=== PATIENT | female | born 1960 | race Caucasian/White ===

== ENCOUNTER 2018-08-27 17:26 | Inpatient (IN) ==
--- NOTE | 2018-08-27 18:08 | ED ---
HPI General Chief Complaint: Respiratory Symptoms Stated Complaint: dr sent Time Seen by Provider: 08/27/18 17:48 Source: patient and RN notes reviewed Mode of arrival: ambulatory Limitations: no limitations History of Present Illness 58-year-old female presents to the emergency department sent by her primary care physician Dr. Carey for evaluation of coughing for 2 weeks. States she has been coughing up dark green yellow mucus. She reports shortness of breath and right-sided rib pain is currently 10/10. She reports a 10 pound weight loss. She states she is not sleeping. She states she did have some hemoptysis last Friday, none currently. No leg edema. Patient had a chest x- ray today at [facility] which showed a large right-sided effusion and atelectasis in the right base with right upper lobe atelectasis as well, malignancy is not excluded, CT scan is recommended if clinically indicated. Patient reports history of brain aneurysm and a stroke 10-12 years ago and hypertension. She is not currently on anticoagulants. She denies any medical history. She does report history pneumonia over 20 years ago. Oxygen saturation is 90% on room air. Moderate severity. MD Complaint: Reports shortness of breath Onset (ago): week(s) (2) Severity: moderate Consistency/Duration: constant Relieving factors: nothing Exacerbating factors: nothing Known history of: Denies COPD, asthma, congestive heart failure, diabetes, recurrent pneumonia, aspiration pneumonia, HIV, PE, DVT and IVDU Associated symptoms: Reports chest pain, cough and hemoptysis; Denies palpitations, nausea/vomiting, syncope, abdominal pain, sense of impending doom , dizziness and lightheadedness Treatment prior to arrival: Reports other (chest x-ray) Related Data Home oxygen amount: none Home Medications Medication Instructions Recorded Confirmed amlodipine 10 mg PO HS 08/27/18 08/27/18 azithromycin 250 mg PO DAILY 08/27/18 08/27/18 benzonatate 100 mg PO TID 08/27/18 08/27/18 buspirone 10 mg PO TID 08/27/18 08/27/18 cefdinir 300 mg PO Q12H 08/27/18 08/27/18 clonidine HCl 0.1 mg PO HS 08/27/18 08/27/18 fenofibrate 160 mg PO DAILY 08/27/18 08/27/18 levothyroxine 200 mcg PO DAILY 08/27/18 08/27/18 liothyronine 5 mcg PO DAILY 08/27/18 08/27/18 methylprednisolone 4 mg PO PER PKG DIR 08/27/18 08/27/18 montelukast 10 mg PO QPM 08/27/18 08/27/18 promethazine-DM 5 ml PO Q4H PRN 08/27/18 08/27/18 rosuvastatin 40 mg PO HS 08/27/18 08/27/18 trazodone 100 mg PO HS 08/27/18 08/27/18 Allergies Allergy/AdvReac Type Severity Reaction Status Date / Time No Known Allergies Allergy Uncoded 10/23/12 14:51 Review of Systems ROS: all other systems reviewed are negative [facility] Medical History Medical History Brain aneurysm (Acute) Hypertension (Acute) Stroke (Acute) Social History Social History Second Hand Smoke Exposure: Yes Smoking Status: Former smoker Tobacco Type: Cigarettes How Often Do You Have a Drink Containing Alcohol: Monthly or less Recent Travel in [facility] within the Last 8 Weeks: No Recent Out of Country Travel within the Last 8 Weeks: No Substance Abuse Detail Marijuana: Substance Use Status: Active Route Used Substance Abuse: Inhalation Reason for Use: Calm Down Immunization History Tetanus Immunization: Unsure Exam Narrative Exam Narrative: GENERAL: Well-nourished, well-developed female patient, afebrile SKIN: Focused skin assessment warm/dry. HEAD: Normocephalic. Atraumatic EYES: No scleral icterus. No injection or drainage. NECK: Supple, trachea midline. No JVD or lymphadenopathy. CARDIOVASCULAR: Regular rate and rhythm without murmurs, gallops, or rubs. Bilateral radial and pedal pulses are 2+ RESPIRATORY: Breath sounds equal bilaterally. No accessory muscle use. Lung sounds diminished on the right side GASTROINTESTINAL: Abdomen soft, non-tender, nondistended. MUSCULOSKELETAL: No cyanosis, or edema. BACK: Nontender without obvious deformity. No CVA tenderness. Course Initial Documented Vital Signs Temperature 98.6 F 08/27/18 17:32 Pulse Rate 92 H 08/27/18 17:32 Respiratory Rate 26 H 08/27/18 17:32 Blood Pressure 150/81 H 08/27/18 17:32 Pulse Oximetry 92 L 08/27/18 17:32 Last Documented Vital Signs Temperature 98.6 F 08/27/18 17:32 Pulse Rate 98 H 08/27/18 19:49 Respiratory Rate 22 08/27/18 19:49 Blood Pressure 122/73 08/27/18 19:49 Pulse Oximetry 93 L 08/27/18 19:49 Medical Decision Making BRENT Attestation BRENT supervised visit: Yes Attestation: I, Dr. Orourke, have reviewed the advance practice practitioner' s documentation and am in agreement, met with the patient face to face, made the diagnosis, and the medical decision making was done by me. *My assessment and Findings: The patient is a 58-year-old female who presents to the emergency department for shortness of breath and right-sided chest pain. The patient saw her physician golf course assistant at [facility] last week for shortness of breath with cough. The patient states she has shortness of breath that is worse with exertion, has difficulty sleeping for the last 2 weeks secondary to shortness of breath and right-sided chest pain. The patient was placed on Zithromax and a cough medicine at that time, however, her symptoms continue to progress. The patient then had an outpatient chest x-ray performed earlier today at [facility] which revealed a right pleural effusion. The patient has had fevers, chills, and sweats at home. The patient also notes a productive cough producing yellow to green sputum with occasional blood. The patient does have a history of tobacco use, quit in the fall 2017, however, occasionally "cheats ". The patient denies any history of pulmonary embolism, DVT, congestive heart failure, or COPD. The patient was noted to be tachycardic and hypoxic, therefore, lactic acid and blood cultures were sent to lab. Chest x-ray was revealed, the patient has a large pleural effusion on the right side, physical examination reveals tachycardia with diminished breath sounds in the right side with rhonchi and crackles. CTA pulmonary angiogram was ordered. The patient was covered with cefepime and Zithromax, the patient will be admitted. MDM Narrative Medical decision making narrative: 58-year-old female presents to the emergency department sent by her primary care physician for right-sided pleural effusion. She has no history of respiratory issues. IV access obtained. EKG, CBC, CMP , magnesium, BNP, CK, troponin, lactic acid, PTT, PT/INR, blood cultures x2, CTA of the chest are ordered and pending. EKG shows SR, HR 98, no acute ST changes. CBC shows leukocytosis 31.2, left shift 92.4, toxic vacuolation. CMP shows hyperglycemia 153. Magnesium is 2.2. BNP is pending. CK is 64. Troponin is less than 0.02. Lactic acid is 1.3. PTT is 38.4. PT/INR is 11.4/1.1. CTA of the chest shows No definitive CT evidence for pulmonary artery embolism although evaluation of the right pulmonary artery branches is limited, as above; Moderate to large loculated right-sided pleural effusion demonstrating indeterminate density. Differential considerations include empyema in the appropriate clinical setting; Airspace consolidation in the right lung with associated volume loss likely reflects compressive atelectasis. Differential considerations include right lower lobe pneumonia and aspiration; Mild nonspecific mediastinal and right hilar adenopathy, likely reactive/infectious in etiology. Patient is given cefepime, azithromycin. Patient will be admitted for pneumonia , right pleural effusion, sepsis. I spoke with Dr. Almaguer who would like Vancomycin to be added on, order placed Medical Screen Exam Complete: Yes Emergency Medical Condition: Yes Differential Diagnosis Differential Diagnosis: pleural effusion vs. PE vs. malignancy vs. pneumonia vs. sepsis vs. ACS Medical Records Medical records reviewed: Yes I reviewed the patient's medical records. Lab Data Result diagrams: 08/27/18 18:10 08/27/18 18:10 Lab Results 08/27/18 08/27/18 08/27/18 Range/Units 18:10 18:10 18:10 WBC 31.2 H (4.0-11.0) th/mm3 RBC 4.40 (4.00-5.30) mil/mm3 Hgb 13.5 (11.6-15.3) gm/dL Hct 39.7 (35.0-46.0) % MCV 90.1 (80.0-100.0) fL MCH 30.6 (27.0-34.0) pg MCHC 34.0 (32.0-36.0) % RDW 14.0 (11.6-17.2) % Plt Count 658 H (150-450) th/mm3 MPV 7.6 (7.0-11.0) fL Prelim Diff (Auto) Slide review pending Neut % (Auto) 92.4 H (16.0-70.0) % Lymph % (Auto) 3.2 L (9.0-44.0) % Lake % (Auto) 4.0 (0.0-8.0) % Eos % (Auto) 0.1 (0.0-4.0) % Baso % (Auto) 0.3 (0.0-2.0) % Neut # (Auto) 28.8 H (1.8-7.7) th/mm3 Lymph # (Auto) 1.0 (1.0-4.8) th/mm3 Lake # (Auto) 1.2 H (0.0-0.9) th/mm3 Eos # (Auto) 0.0 (0.0-0.4) th/mm3 Baso # (Auto) 0.1 (0.0-0.2) th/mm3 WBC Differential Manual diff final Seg Neuts % (Manual) 87 H (16-70) % Band Neuts % (Manual) 5 (0-6) % Lymphocytes % (Manual) 6 L (9-44) % Monocytes % (Manual) 1 (0-8) % Metamyelocytes % (Man) 1 (0-1) % Abs Neuts (Manual) 29.0 H (1.8-7.7) th/mm3 Differential Comment . Toxic Vacuolation Present H (None) Platelet Estimate High H (Normal) Platelet Morphology Normal (Normal) Keratocytes Occ H (None) PT 11.4 (9.8-11.6) sec INR 1.1 Ratio APTT 38.4 H (23.4-31.7) sec Sodium 136 (136-145) meq/L Potassium 3.6 (3.5-5.1) meq/L Chloride 102 (98-107) meq/L Carbon Dioxide 26.8 (21.0-32.0) meq/L Anion Gap 7 (5-15) meq/L BUN 9 (7-18) mg/dL Creatinine 0.70 (0.50-1.00) mg/dL Estimated GFR 86 L (>89) mL/min Random Glucose 153 H (74-106) mg/dL Lactic Acid (0.4-2.0) mmol/L Calcium 9.1 (8.5-10.1) mg/dL Magnesium 2.2 (1.5-2.5) mg/dL Total Bilirubin 0.5 (0.2-1.0) mg/dL AST 7 L (15-37) U/L ALT 16 (10-53) U/L Alkaline Phosphatase 64 (45-117) U/L Total Creatine Kinase 64 (26-192) U/L Troponin I Less than 0.02 L (0.02-0.05) ng/mL Total Protein 7.6 (6.4-8.2) g/dL Albumin 2.7 L (3.4-5.0) g/dL 08/27/18 Range/Units 18:10 WBC (4.0-11.0) th/mm3 RBC (4.00-5.30) mil/mm3 Hgb (11.6-15.3) gm/dL Hct (35.0-46.0) % MCV (80.0-100.0) fL MCH (27.0-34.0) pg MCHC (32.0-36.0) % RDW (11.6-17.2) % Plt Count (150-450) th/mm3 MPV (7.0-11.0) fL Prelim Diff (Auto) Neut % (Auto) (16.0-70.0) % Lymph % (Auto) (9.0-44.0) % Lake % (Auto) (0.0-8.0) % Eos % (Auto) (0.0-4.0) % Baso % (Auto) (0.0-2.0) % Neut # (Auto) (1.8-7.7) th/mm3 Lymph # (Auto) (1.0-4.8) th/mm3 Lake # (Auto) (0.0-0.9) th/mm3 Eos # (Auto) (0.0-0.4) th/mm3 Baso # (Auto) (0.0-0.2) th/mm3 WBC Differential Seg Neuts % (Manual) (16-70) % Band Neuts % (Manual) (0-6) % Lymphocytes % (Manual) (9-44) % Monocytes % (Manual) (0-8) % Metamyelocytes % (Man) (0-1) % Abs Neuts (Manual) (1.8-7.7) th/mm3 Differential Comment Toxic Vacuolation (None) Platelet Estimate (Normal) Platelet Morphology (Normal) Keratocytes (None) PT (9.8-11.6) sec INR Ratio APTT (23.4-31.7) sec Sodium (136-145) meq/L Potassium (3.5-5.1) meq/L Chloride (98-107) meq/L Carbon Dioxide (21.0-32.0) meq/L Anion Gap (5-15) meq/L BUN (7-18) mg/dL Creatinine (0.50-1.00) mg/dL Estimated GFR (>89) mL/min Random Glucose (74-106) mg/dL Lactic Acid 1.3 (0.4-2.0) mmol/L Calcium (8.5-10.1) mg/dL Magnesium (1.5-2.5) mg/dL Total Bilirubin (0.2-1.0) mg/dL AST (15-37) U/L ALT (10-53) U/L Alkaline Phosphatase (45-117) U/L Total Creatine Kinase (26-192) U/L Troponin I (0.02-0.05) ng/mL Total Protein (6.4-8.2) g/dL Albumin (3.4-5.0) g/dL Imaging Data Radiologist's impression: Chest CTA 08/27/18 18:02 CONCLUSION: 1. No definitive CT evidence for pulmonary artery embolism although evaluation of the right pulmonary artery branches is limited, as above. 2. Moderate to large loculated right-sided pleural effusion demonstrating indeterminate density. Differential considerations include empyema in the appropriate clinical setting. 3. Airspace consolidation in the right lung with associated volume loss likely reflects compressive atelectasis. Differential considerations include right lower lobe pneumonia and aspiration. 4. Mild nonspecific mediastinal and right hilar adenopathy, likely reactive/ infectious in etiology. Discharge Plan Discharge Disposition Patient Disposition: ED Admit(ED Internal Use Only) Discharge Details Diagnosis: Pleural effusion on right, Pneumonia, Sepsis Physicians Team ED Provider: Misbah Orourke ED Midlevel Provider: Lauren Lopez Primary Care Provider: UNKNOWN, Rxs /Orders / Referrals /Forms Prescriptions: No Action clonidine HCl 0.1 mg Tablet 0.1 mg PO HS RF: 0 azithromycin 250 mg Tablet 250 mg PO DAILY RF: 0 liothyronine 5 mcg Tablet 5 mcg PO DAILY RF: 0 trazodone 100 mg Tablet 100 mg PO HS RF: 0 amlodipine 10 mg Tablet 10 mg PO HS RF: 0 buspirone 10 mg Tablet 10 mg PO TID RF: 0 montelukast 10 mg Tablet 10 mg PO QPM RF: 0 rosuvastatin 40 mg Tablet 40 mg PO HS RF: 0 fenofibrate 160 mg Tablet 160 mg PO DAILY RF: 0 levothyroxine 200 mcg Capsule 200 mcg PO DAILY RF: 0 promethazine-DM 6.25-15 mg/5 mL Syrup 5 ml PO Q4H PRN (Reason: Cough) RF: 0 benzonatate 100 mg Capsule 100 mg PO TID RF: 0 methylprednisolone 4 mg Tablets,Dose Pack 4 mg PO PER PKG DIR RF: 0 cefdinir 300 mg Capsule 300 mg PO Q12H RF: 0 Status ED Status: Pending Admission
[2018-08-27 18:34] LABS: Baso # (Auto) 0.1 th/mm3 (0.0-0.2); Baso % (Auto) 0.3 % (0.0-2.0); Eos % (Auto) 0.1 % (0.0-4.0); Hematocrit 39.7 % (35.0-46.0); Hemoglobin 13.5 gm/dL (11.6-15.3); Lymph % (Auto) 3.2 % (9.0-44.0); Mean Corpuscular Hemoglobin 30.6 pg (27.0-34.0); Mean Corpuscular Volume 90.1 fL (80.0-100.0); Mean Platelet Volume 7.6 fL (7.0-11.0); Mono # (Auto) 1.2 th/mm3 (0.0-0.9); Neut # (Auto) 28.8 th/mm3 (1.8-7.7); Neut % (Auto) 92.4 % (16.0-70.0); Platelet Count 658 th/mm3 (150-450); White Blood Count 31.2 th/mm3 (4.0-11.0)
[2018-08-27 18:44] LABS: Activated Partial Thrombo Time 38.4 sec (23.4-31.7); INR 1.1 Ratio; Prothrombin Time 11.4 sec (9.8-11.6)
[2018-08-27 18:51] LABS: Albumin 2.7 g/dL (3.4-5.0); Anion Gap 7 meq/L (5-15); Aspartate Aminotransferase 7 U/L (15-37); Blood Urea Nitrogen 9 mg/dL (7-18); Calcium 9.1 mg/dL (8.5-10.1); Carbon Dioxide 26.8 meq/L (21.0-32.0); Chloride 102 meq/L (98-107); Glomerular Filtration Rate 86 mL/min (>89); Glucose,Random 153 mg/dL (74-106); Magnesium 2.2 mg/dL (1.5-2.5); Potassium 3.6 meq/L (3.5-5.1); Sodium 136 meq/L (136-145)
[2018-08-27] MEDS ORDERED: Azithromycin Inj 500 MG in Sodium Chlor 0.9% Inj 250 ML IV.SIG ONE (18:56)
[2018-08-27 18:57] LABS: Alanine Aminotransferase 16 U/L (10-53); Alkaline Phosphatase 64 U/L (45-117); Total Protein 7.6 g/dL (6.4-8.2)
[2018-08-27 19:00] LABS: Creatine Kinase 64 U/L (26-192)
[2018-08-27 19:24] LABS: Lymphocytes 6 % (9-44); Metamyelocytes 1 % (0-1); Monocytes 1 % (0-8)
[2018-08-27 19:25] LABS: Platelet Morphology Normal (Normal); Toxic Vacuolation Present
--- NOTE | 2018-08-27 19:37 | CT ---
EXAM DATE: 08/27/2018 7:30 PM EST AGE/SEX: 58 years / Female INDICATIONS: Shortness of breath. CLINICAL DATA: This is the patient's initial encounter. Patient reports that signs and symptoms have been present for 1 day and indicates a pain score of 0/10. MEDICAL/SURGICAL HISTORY: Hypertension. Stroke. None. RADIATION DOSE: 10.63 CTDI (mGy) COMPARISON: [facility], XR CHEST PA AND LAT, 08/27/2018. . TECHNIQUE: Volumetric scanning was performed using a multi-row detector CT scanner during bolus infu gt of 70 ml Omnipaque 350 (iohexol) nonionic water-soluble contrast as a single exam dose. The julienne a was post processed with a variety of visualization algorithms including full volume maximum intensi ty projection and sliding thin slab reformation. Using automated exposure control and adjustment of the mA and/or kV according to patient size, radiation dose was kept as low as reasonably achievable t o obtain optimal diagnostic quality images. DICOM format image data is available electronically for review and comparison. FINDINGS: Pulmonary Arteries: No filling defects are seen in the pulmonary arteries through the segmental vess els. However, evaluation of the right pulmonary artery branches is limited due to significant volume loss and consolidation. The main pulmonary artery is normal in diameter. Lung: Airspace consolidation adjacent moderate to large right-sided loculated pleural effusion. Pleura: Moderate to large loculated right-sided pleural effusion demonstrating indeterminate density . Mediastinum: Heart is unremarkable without significant pericardial effusion. Multiple subcentimeter mediastinal and right hilar lymph nodes which do not meet strict CT size criteria. Osseous Structures: No abnormal focal lytic or blastic bony lesions. Other: Visulaized upper abdomen is unremarkable. CONCLUSION: 1. No definitive CT evidence for pulmonary artery embolism although evaluation of the right pulmonar y artery branches is limited, as above. 2. Moderate to large loculated right-sided pleural effusion demonstrating indeterminate density. Dif ferential considerations include empyema in the appropriate clinical setting. 3. Airspace consolidation in the right lung with associated volume loss likely reflects compressive atelectasis. Differential considerations include right lower lobe pneumonia and aspiration. 4. Mild nonspecific mediastinal and right hilar adenopathy, likely reactive/infectious in etiology. Electronically signed by: Daniel Norwood MD Board Certified Radiologist 08/27/2018 7:36 PM EST
[2018-08-27] MEDS ORDERED: Vancomycin Inj 1,000 MG in Sodium Chlor 0.9% Inj 250 ML IV.SIG ONE (20:33)
[2018-08-27] MEDS ORDERED: Vancomycin Consult Pharmacy OTHER PRN ×2 (21:26→21:49)
[2018-08-27] MEDS ORDERED: Acetaminophen 325 MG Tablet PO PRN (21:31)
[2018-08-27] MEDS ORDERED: Bisacodyl 10 MG Supp RECTAL PRN (21:31)
[2018-08-27] MEDS ORDERED: DEXTROMETHORPHAN PO PRN (21:34)
[2018-08-27] MEDS ORDERED: PROMETHAZINE PO PRN (21:34)
--- NOTE | 2018-08-27 21:42 | P.HPIM ---
History of Present Illness Primary Care Physician: UNKNOWN 58-year-old female with a past medical history significant for hypertension, hyperlipidemia and history of previous CVA presents to the emergency department for evaluation of fever/chills and productive cough for the past 2 weeks. The patient reports she has had a cough productive of green sputum that is occasionally blood-tinged. She endorses increasingly worsening shortness of breath. She complains of right sided rib pain that is worse with coughing. She has had subjective fever/chills although did not take her temperature at home. She who was seen by her primary care provider and prescribed antibiotics and steroids without improvement. She denies any substernal chest pain. No abdominal pain. No nausea/vomiting/diarrhea. No focal neurologic deficits. Inpatient Certification Inpatient Certification: I certify that the inpatient services were ordered in accordance with Medicare regulations governing the order. This includes certification that hospital inpatient services are reasonable and necessary and in the case of services not specified as inpatient-only under 42 CFR 419.22(n), that they are appropriately provided as inpatient services in accordance to with the 2-midnight benchmark under 43 CFR 412.3(e) Estimated Total Length of Stay (Days): 3 Plans for Post Hospital Care: Not yet determined Review of Systems Review of Systems: all other systems reviewed are negative [facility] Medical History Medical History Hyperlipidemia (Acute) Brain aneurysm (Acute) Hypertension (Acute) Stroke (Acute) Surgical History Surgical History History of appendectomy (Acute) Family History Family History Other Diabetes mellitus Social History Social History Second Hand Smoke Exposure: Yes Smoking Status: Former smoker Tobacco Type: Cigarettes How Often Do You Have a Drink Containing Alcohol: Monthly or less Recent Travel in [place] within the Last 8 Weeks: No Recent Out of Country Travel within the Last 8 Weeks: No Substance Abuse Detail Marijuana: Substance Use Status: Active Route Used Substance Abuse: Inhalation Reason for Use: Calm Down Immunization History Tetanus Immunization: Unsure Medications and Allergies Allergies Allergy/AdvReac Type Severity Reaction Status Date / Time No Known Allergies Allergy Uncoded 10/23/12 14:51 Home Medications Medication Instructions Recorded Confirmed Type amlodipine 10 mg PO HS 08/27/18 08/27/18 History azithromycin 250 mg PO DAILY 08/27/18 08/27/18 History benzonatate 100 mg PO TID 08/27/18 08/27/18 History buspirone 10 mg PO TID 08/27/18 08/27/18 History cefdinir 300 mg PO Q12H 08/27/18 08/27/18 History clonidine HCl 0.1 mg PO HS 08/27/18 08/27/18 History fenofibrate 160 mg PO DAILY 08/27/18 08/27/18 History levothyroxine 200 mcg PO DAILY 08/27/18 08/27/18 History liothyronine 5 mcg PO DAILY 08/27/18 08/27/18 History methylprednisolone 4 mg PO PER PKG DIR 08/27/18 08/27/18 History montelukast 10 mg PO QPM 08/27/18 08/27/18 History promethazine-DM 5 ml PO Q4H PRN 08/27/18 08/27/18 History rosuvastatin 40 mg PO HS 08/27/18 08/27/18 History trazodone 100 mg PO HS 08/27/18 08/27/18 History Active Medications: Active Medications Acetaminophen (Tylenol) 650 mg PO Q4H PRN PRN Reason: Temp > 100.4 Al Hydroxide/Mg Hydroxide (Milk Of Magnesia Liq) 30 ml PO Q12H PRN PRN Reason: Mild Constipation Albuterol (Duoneb Neb (Prn)) 1 ampul NEB Q4HR NEB PRN PRN Reason: SOB/Wheezing Amlodipine Besylate (Norvasc) 10 mg PO HS [facility] Bisacodyl (Dulcolax Supp) 10 mg RECTAL DAILY PRN PRN Reason: SEVERE CONSITIPATION Clonidine HCl (Clonidine (Nicu) 20 Mcg/Ml Liq) 100 mcg PO HS [facility] Azithromycin 500 mg/ Sodium (Chloride) 250 mls @ 250 mls/hr IV.SIG ONCE ONE Stop: 08/28/18 22:25 Cefepime HCl 2,000 mg/ Sodium (Chloride) 100 mls @ 200 mls/hr IV.SIG Q8H [facility] Sodium Chloride (Ns Inj) 1,000 mls @ 100 mls/hr IV.CONT .Q10H [facility] Lactulose (Lactulose Liq) 30 ml PO DAILY PRN PRN Reason: SEVERE CONSITIPATION Morphine Sulfate (Morphine Inj) 4 mg IV.PUSH Q4H PRN PRN Reason: PAIN SCALE 6 TO 10 Non-Formulary Medication (Rosuvastatin [Rosuvastatin]) 40 mg PO HS [facility] Ondansetron HCl (Zofran Inj) 4 mg IV.PUSH Q6H PRN PRN Reason: NAUSEA OR VOMITING Pharmacy Profile Note (Vancomycin Consult Pharmacy) 1 each OTHER UNSCH PRN PRN Reason: Pharmacy to dose Promethazine HCl/Dextromethorphan (Phenergan Dm Liq) 5 ml PO Q4H PRN PRN Reason: Cough Senna/Docusate Sodium (Nirali-Colace) 1 tab PO BID [facility] Sennosides (Senokot) 17.2 mg PO Q12H PRN PRN Reason: Moderate Constipation Sodium Chloride (Ns Flush) 2 ml IV.FLUSH BID [facility] Sodium Chloride (Ns Flush) 2 ml IV.FLUSH PRN PRN PRN Reason: FLUSH AFTER USING IV ACCESS Trazodone HCl (Desyrel) 100 mg PO HS [facility] Physical Exam Vital signs: Vital Signs 08/27/18 17:32 08/27/18 17:48 08/27/18 18:21 Temperature 98.6 F Pulse Rate 92 H 104 H Respiratory Rate 26 H 17 Blood Pressure 150/81 H 143/85 H Pulse Oximetry 92 L 90 L 93 L 08/27/18 19:49 08/27/18 21:07 Temperature Pulse Rate 98 H 90 Respiratory Rate 22 20 Blood Pressure 122/73 120/60 Pulse Oximetry 93 L 95 Intake & Output 08/27/18 08/27/18 08/28/18 06:59 18:59 06:59 Intake Total 100 / 100 Balance 100 / 100 Weight 89.811 kg Intake: IV 100 / 100 Maxipime Inj 2,000 MG In NS Inj 100 / 100 100 ML @ 200 mls/hr IV.SIG ONCE ONE Rx#:[id number] Narrative: Gen.: No acute distress Head: Normocephalic. Atraumatic. EENT: Pupils equal round and reactive to light. Nose without drainage. Airway intact. Throat without injection. Cardiovascular: Regular rate and rhythm. No murmurs, rubs or gallops. Respiratory: Absent breath sounds on the right Abdomen: Soft, nontender, nondistended. No peritoneal signs. Musculoskeletal: No gross deformities. No edema. Skin: No obvious rashes or erythema. Neuro: Sensory and motor grossly intact. Cranial nerves II through XII grossly intact. Results Labs CBC & Chem 7: 08/27/18 18:10 08/27/18 18:10 Imaging Impressions Chest CTA 08/27/18 18:02 CONCLUSION: 1. No definitive CT evidence for pulmonary artery embolism although evaluation of the right pulmonary artery branches is limited, as above. 2. Moderate to large loculated right-sided pleural effusion demonstrating indeterminate density. Differential considerations include empyema in the appropriate clinical setting. 3. Airspace consolidation in the right lung with associated volume loss likely reflects compressive atelectasis. Differential considerations include right lower lobe pneumonia and aspiration. 4. Mild nonspecific mediastinal and right hilar adenopathy, likely reactive/ infectious in etiology. Caprini VTE Risk Assessment Caprini VTE Risk Assessment: No/Low Risk (score <= 1) Caprini Risk Assessment Model: Point Value = 1 Point Value = 2 Point Value = 3 Point Value = 5 Age 41-60 Minor surgery BMI > 25 kg/m2 Swollen legs Varicose veins or History of unexplained or recurrent spontaneous Oral contraceptives or hormone replacement Sepsis (< 1 month) Serious lung disease, including pneumonia (< 1 month) Abnormal pulmonary function Acute myocardial infarction Congestive heart failure (< 1 month) History of inflammatory bowel disease Medical patient at bed rest Age 61-74 Arthroscopic surgery Major open surgery (> 45 min) Laparoscopic surgery (> 45 min) Malignancy Confined to bed (> 72 hours) Immobilizing plaster cast Central venous access Age >= 75 History of VTE Family history of VTE Factor V Leiden Prothrombin [id number] Lupus anticoagulant Anticardiolipin antibodies Elevated serum homocysteine Heparin-induced thrombocytopenia Other congenital or acquired thrombophilia Stroke (< 1 month) Elective arthroplasty Hip, pelvis, or leg fracture Acute spinal cord injury (< 1 month) Prophylaxis Regimen: Total Risk Factor Score Risk Level Prophylaxis Regimen 0-1 Low Early ambulation 2 Moderate Order ONE of the following: *Sequential Compression Device (SCD) *Heparin 5000 units SQ BID 3-4 Higher Order ONE of the following medications: *Heparin 5000 units SQ TID *Enoxaparin/Lovenox 40 mg SQ daily (WT < 150 kg, CrCl > 30 mL/min) *Enoxaparin/Lovenox 30 mg SQ daily (WT < 150 kg, CrCl > 10-29 mL/min) *Enoxaparin/Lovenox 30 mg SQ BID (WT < 150 kg, CrCl > 30 mL/min) AND/OR *Sequential Compression Device (SCD) 5 or more Highest Order ONE of the following medications: *Heparin 5000 units SQ TID (Preferred with Epidurals) *Enoxaparin/Lovenox 40 mg SQ daily (WT < 150 kg, CrCl > 30 mL/min) *Enoxaparin/Lovenox 30 mg SQ daily (WT < 150 kg, CrCl > 10-29 mL/min) *Enoxaparin/Lovenox 30 mg SQ BID (WT < 150 kg, CrCl > 30 mL/min) AND *Sequential Compression Device (SCD) Assessment and Plan Plan Assessment/plan: 1. Pneumonia/empyema/sepsis Patient tachycardic, hypoxic with leukocytosis Chest CT significant for moderate to large loculated pleural effusion on the right Blood, sputum cultures pending Vancomycin, cefepime and azithromycin CT surgery consulted to assist with further evaluation and chest tube placement 2. Hypertension/hyperlipidemia Continue home medications FEN N.p.o. Electrolytes: Monitor and replete as needed NS at 100 cc/hour
[2018-08-27] MEDS: Sod Chloride 0.9% Inj 1,000 ML IV.CONT SCH (22:59)
[2018-08-27] MEDS: Morphine Inj 4 MG/ML Vial IV.PUSH PRN (23:20)
[2018-08-28] MEDS ORDERED: Vancomycin Inj 1,000 MG in Sodium Chlor 0.9% Inj 250 ML IV.SIG ONE ×2
[2018-08-28] MEDS: Morphine Inj 4 MG/ML Vial IV.PUSH PRN ×4 (03:09→22:08)
[2018-08-28 06:47] LABS: Baso # (Auto) 0.2 th/mm3 (0.0-0.2); Baso % (Auto) 0.6 % (0.0-2.0); Hematocrit 34.8 % (35.0-46.0); Hemoglobin 11.9 gm/dL (11.6-15.3); Lymph # (Auto) 1.1 th/mm3 (1.0-4.8); Lymph % (Auto) 3.7 % (9.0-44.0); Mean Corpuscular HGB Conc 34.3 % (32.0-36.0); Mean Corpuscular Hemoglobin 30.8 pg (27.0-34.0); Mean Corpuscular Volume 90.1 fL (80.0-100.0); Mean Platelet Volume 7.6 fL (7.0-11.0); Mono # (Auto) 1.2 th/mm3 (0.0-0.9); Neut # (Auto) 26.5 th/mm3 (1.8-7.7); Neut % (Auto) 91.7 % (16.0-70.0); Platelet Count 653 th/mm3 (150-450); Red Blood Count 3.86 mil/mm3 (4.00-5.30)
[2018-08-28 07:09] LABS: Anion Gap 8 meq/L (5-15); Blood Urea Nitrogen 10 mg/dL (7-18); Carbon Dioxide 25.9 meq/L (21.0-32.0); Chloride 106 meq/L (98-107); Glomerular Filtration Rate Greater Than 89 mL/min (>89); Glucose,Random 158 mg/dL (74-106); Potassium 3.8 meq/L (3.5-5.1); Sodium 140 meq/L (136-145)
[2018-08-28] MEDS: Sod Chloride 0.9% Inj 1,000 ML IV.CONT SCH ×2 (08:53→19:43)
[2018-08-28] MEDS: Senna/Docusate Sodium 8.6/50 MG Tablet PO SCH ×2 (09:11→22:09)
--- NOTE | 2018-08-28 11:53 | P.PNIM ---
Subjective Interval history: Nursing reports no deterioration since last night. Patient reports having substantial back pain. Denies ever being hospitalized for anything like this in the past. Denies drinking alcohol or pain killers except for taking some narcotics with this new acute pain. Physical Exam Vital signs: Vital Signs 08/27/18 17:32 08/27/18 17:48 08/27/18 18:21 Temperature 98.6 F Pulse Rate 92 H 104 H Respiratory Rate 26 H 17 Blood Pressure 150/81 H 143/85 H Pulse Oximetry 92 L 90 L 93 L 08/27/18 19:49 08/27/18 20:00 08/27/18 21:07 Temperature Pulse Rate 98 H 90 Respiratory Rate 22 20 Blood Pressure 122/73 120/60 Pulse Oximetry 93 L 94 L 95 08/27/18 21:47 08/27/18 21:54 08/27/18 23:00 Temperature Pulse Rate 88 104 H Respiratory Rate 20 Blood Pressure 108/58 L Pulse Oximetry 93 L 93 L 08/28/18 00:00 08/28/18 00:55 08/28/18 01:00 Temperature 99.4 F Pulse Rate 74 97 H Respiratory Rate 20 18 Blood Pressure 137/76 Pulse Oximetry 94 L 08/28/18 02:00 08/28/18 03:00 08/28/18 04:00 Temperature 98.1 F Pulse Rate 75 77 84 Respiratory Rate 20 Blood Pressure 126/78 Pulse Oximetry 93 L 08/28/18 05:00 08/28/18 06:00 08/28/18 07:56 Temperature Pulse Rate 79 75 Respiratory Rate Blood Pressure Pulse Oximetry 92 L Intake & Output 08/27/18 08/28/18 08/28/18 18:59 06:59 18:59 Intake Total 1670 / 1670 1000 / 1000 Balance 1670 / 1670 1000 / 1000 Weight 89.811 kg 92.5 kg Intake: IV 950 / 950 1000 / 1000 NS Inj 1,000 ML @ 100 mls/hr IV 1000 / 1000 .CONT .Q10H [facility] Rx#:[id number] Azithromycin Inj 500 MG In NS 250 / 250 Inj 250 ML @ 250 mls/hr IV.SIG ONCE ONE Rx#:[id number] Maxipime Inj 2,000 MG In NS Inj 200 / 200 100 ML @ 200 mls/hr IV.SIG Q8H [facility] Rx#:[id number] Vancomycin Inj 1,000 MG In NS 500 / 500 Inj 250 ML @ 250 mls/hr IV.SIG ONCE ONE Rx#:[id number] Oral 720 / 720 Other: # Voids 4 Narrative: Good aeration on the left, no breath sounds on the right Heart sounds regular rate rhythm Appears to be in acute distress secondary to pain, tearful No lower extremity edema Awake and alert Results Labs CBC & Chem 7: 08/28/18 06:17 08/28/18 06:17 Labs: Microbiology 08/27/18 18:10 Blood - Peripheral Aerobic Blood Culture - Preliminary No growth in 1 day 08/27/18 18:10 Blood - Peripheral Anaerobic Blood Culture - Preliminary No growth in 1 day 08/27/18 16:15 Blood - Peripheral Aerobic Blood Culture - Preliminary No growth in 1 day 08/27/18 16:15 Blood - Peripheral Anaerobic Blood Culture - Preliminary No growth in 1 day Imaging Imaging: Impressions Chest CTA 08/27/18 18:02 CONCLUSION: 1. No definitive CT evidence for pulmonary artery embolism although evaluation of the right pulmonary artery branches is limited, as above. 2. Moderate to large loculated right-sided pleural effusion demonstrating indeterminate density. Differential considerations include empyema in the appropriate clinical setting. 3. Airspace consolidation in the right lung with associated volume loss likely reflects compressive atelectasis. Differential considerations include right lower lobe pneumonia and aspiration. 4. Mild nonspecific mediastinal and right hilar adenopathy, likely reactive/ infectious in etiology. Assessment and Plan Plan 58-year-old white female admitted with shortness of breaths. Found to have loculated pleural effusion on the right. 1. Pneumonia/empyema/sepsis Patient tachycardic, hypoxic with leukocytosis Chest CT significant for moderate to large loculated pleural effusion on the right Blood, sputum cultures pending Vancomycin, cefepime and azithromycin CT surgery consulted to assist with further evaluation and possible chest tube placement 2. Hypertension/hyperlipidemia Continue home medications FEN N.p.o. Electrolytes: Monitor and replete as needed NS at 100 cc/hour Progress Note: Quality VTE Deep Vein Thrombosis/Pulmonary Embolism Present on Admission: No
--- NOTE | 2018-08-28 14:31 | ECG ---
Date Performed: 08/27/2018 Time Performed: 18:10:03 PTAGE: 58 years EKG: Sinus rhythm NONSPECIFIC ST & T-WAVE ABNORMALITY BORDERLINE ECG NO PREVIOUS TRACING DOCTOR: Christa Wilson Interpretating Date/Time 08/28/2018 14:29:56
[2018-08-28] MEDS: Vancomycin Inj 1,500 MG in Sodium Chlor 0.9% Inj 500 ML IV.SIG SCH (16:20)
[2018-08-28] MEDS ORDERED: fentaNYL Citrate Inj 250 MCG/5 ML Ampul ONE (16:54)
--- NOTE | 2018-08-28 17:52 | P.RAD ---
Post Procedure Progress Note - Pre Procedure Diagnosis (1) Pleural effusion on right - Post Procedure Diagnosis (1) Pleural effusion on right - Procedure Information Procedure Date: 08/28/18 Supervising Radiologist: Taiwo Mora MD Estimated blood loss (mL): 2 Anesthesia: Local, Analgesia, Conscious Sedation - Plan of Activity Patient to Unit: PACU Patient Condition: Good See PACS Report for procedural detail/treatment. Drainage Procedure CT right Chest Tube Tunneled Persian Tube Size: 10 Drainage: Pleurovac (40 cm) Fluid Description: Clear, Yellow
[2018-08-28] MEDS ORDERED: guaiFENesin/Dextromethorphan 200 MG/20 MG 10 ML UDC PO PRN (17:59)
[2018-08-28] MEDS: Benzonatate 100 MG Capsule PO SCH (19:41)
[2018-08-28] MEDS: Fenofibrate 145 MG Tablet PO SCH (19:42)
[2018-08-28] MEDS ORDERED: Non-Formulary Drug (Rosuvastatin [Rosuvastatin] 40 MG) PO SCH (21:00)
[2018-08-28] MEDS ORDERED: Azithromycin Inj 500 MG in Sodium Chlor 0.9% Inj 250 ML IV.SIG ONE (21:26)
[2018-08-28] MEDS: amLODIPine 10 MG Tablet PO SCH (22:09)
[2018-08-28] MEDS: traZODone 100 MG Tablet PO SCH (22:09)
[2018-08-29] MEDS: Montelukast 10 MG Tablet PO SCH ×2 (00:36→17:31)
[2018-08-29] MEDS: Morphine Inj 4 MG/ML Vial IV.PUSH PRN ×5 (02:41→20:26)
[2018-08-29] MEDS: Sod Chloride 0.9% Inj 1,000 ML IV.CONT SCH ×3 (03:16→21:54)
[2018-08-29] MEDS: Vancomycin Inj 1,500 MG in Sodium Chlor 0.9% Inj 500 ML IV.SIG SCH ×2 (03:53→16:37)
[2018-08-29] MEDS: Fenofibrate 145 MG Tablet PO SCH (08:22)
[2018-08-29] MEDS: Senna/Docusate Sodium 8.6/50 MG Tablet PO SCH ×2 (08:22→20:25)
[2018-08-29] MEDS: Benzonatate 100 MG Capsule PO SCH ×3 (08:22→17:31)
[2018-08-29] MEDS: Liothyronine 5 MCG Tablet PO SCH (08:22)
[2018-08-29 09:07] LABS: Glomerular Filtration Rate Greater Than 89 mL/min (>89)
--- NOTE | 2018-08-29 13:50 | P.PNIM ---
Subjective Interval history: Nursing reports the patient has no deterioration since last night except for pain. Patient says the pain is only a little bit better since the chest tube was inserted yesterday evening. No other new issues. Physical Exam Vital signs: Vital Signs 08/28/18 14:00 08/28/18 15:00 08/28/18 16:00 Temperature Pulse Rate 98 H 96 H 96 H Respiratory Rate Blood Pressure Pulse Oximetry 08/28/18 17:00 08/28/18 17:54 08/28/18 18:00 Temperature Pulse Rate 92 H 118 H Respiratory Rate 18 Blood Pressure Pulse Oximetry 08/28/18 18:06 08/28/18 18:15 08/28/18 18:30 Temperature 98.0 F Pulse Rate 113 H 113 H 108 H Respiratory Rate 20 28 H 20 Blood Pressure 123/77 132/81 139/86 Pulse Oximetry 91 L 91 L 92 L 08/28/18 18:34 08/28/18 18:39 08/28/18 19:00 Temperature Pulse Rate 113 H 102 H Respiratory Rate 20 Blood Pressure 148/72 H Pulse Oximetry 92 L 93 L 08/28/18 19:04 08/28/18 19:48 08/28/18 20:00 Temperature 98.5 F 98.5 F Pulse Rate 113 H 106 H Respiratory Rate 20 18 20 Blood Pressure 120/78 120/78 Pulse Oximetry 92 L 98 08/28/18 21:00 08/28/18 22:00 08/28/18 23:00 Temperature Pulse Rate 98 H 100 H Respiratory Rate 16 Blood Pressure Pulse Oximetry 08/28/18 23:47 08/29/18 00:00 08/29/18 01:09 Temperature 99.2 F Pulse Rate 99 H 74 69 Respiratory Rate 20 Blood Pressure 126/84 Pulse Oximetry 93 L 08/29/18 02:00 08/29/18 03:00 08/29/18 04:00 Temperature 98.8 F Pulse Rate 92 H 75 82 Respiratory Rate 20 Blood Pressure 115/81 Pulse Oximetry 94 L 08/29/18 05:00 08/29/18 06:00 08/29/18 07:00 Temperature Pulse Rate 93 H 102 H 69 Respiratory Rate Blood Pressure Pulse Oximetry 08/29/18 08:00 08/29/18 09:00 08/29/18 10:00 Temperature 98.1 F Pulse Rate 82 72 66 Respiratory Rate 18 Blood Pressure 116/71 Pulse Oximetry 94 L 08/29/18 11:00 08/29/18 12:00 08/29/18 13:00 Temperature 98.4 F Pulse Rate 78 90 94 H Respiratory Rate 18 Blood Pressure 125/77 Pulse Oximetry 95 Intake & Output 08/28/18 08/29/18 08/29/18 18:59 06:59 18:59 Intake Total 2100 / 2100 3180 / 3180 100 / 100 Output Total 190 / 190 1580 / 1580 Balance 1910 / 1910 1600 / 1600 100 / 100 Weight 94.9 kg Intake: IV 2100 / 2100 1979 / 1979 100 / 100 NS Inj 1,000 ML @ 100 mls/hr IV 2000 / 2000 500 / 500 .CONT .Q10H [facility] Rx#:[id number] Azithromycin Inj 500 MG In NS 250 / 250 Inj 250 ML @ 250 mls/hr IV.SIG ONCE ONE Rx#:[id number] Maxipime Inj 2,000 MG In NS Inj 100 / 100 200 / 200 100 / 100 100 ML @ 200 mls/hr IV.SIG Q8H [facility] Rx#:[id number] Vancomycin Inj 1,500 MG In NS 1030 / 1030 Inj 500 ML @ 250 mls/hr IV.SIG Q12H [facility] Rx#:[id number] Oral 1200 / 1200 Output: Urine 1550 / 1550 Chest Tube Drainage 190 / 190 30 / 30 Right Upper Anterior 190 / 190 30 / 30 Other: Date of Last Bowel Movement 08/24/18 08/24/18 Narrative: Good aeration on the left, diminished but present breath sounds on the right Chest tube in place anteriorly on the right Heart sounds regular rate rhythm Mild distress secondary to pain, appears more comfortable today than yesterday No lower extremity edema Awake and alert Results Labs CBC & Chem 7: 08/28/18 06:17 08/29/18 07:51 Labs: Microbiology 08/27/18 18:10 Blood - Peripheral Aerobic Blood Culture - Preliminary No growth in 2 days 08/27/18 18:10 Blood - Peripheral Anaerobic Blood Culture - Preliminary No growth in 2 days 08/27/18 16:15 Blood - Peripheral Aerobic Blood Culture - Preliminary No growth in 2 days 08/27/18 16:15 Blood - Peripheral Anaerobic Blood Culture - Preliminary No growth in 2 days 08/27/18 22:37 Sputum - Expectorated Sputum Gram Stain - Final Assessment and Plan Plan 58-year-old white female admitted with shortness of breaths. Found to have loculated pleural effusion on the right. 1. Pneumonia/empyema/sepsis Patient tachycardic, hypoxic with leukocytosis - hypoxia resolved Chest CT significant for moderate to large loculated pleural effusion on the right Status post chest tube insertion on the right, pleural cultures pending Appreciate CT input Vancomycin, cefepime and azithromycin; pleural fluids pendings CT surgery consulted to assist with further evaluation and possible chest tube placement 2. Hypertension/hyperlipidemia Continue home medications Diet as tolerated Progress Note: Quality VTE Deep Vein Thrombosis/Pulmonary Embolism Present on Admission: No
--- NOTE | 2018-08-29 14:04 | P.CON ---
History of Present Illness Service: CT Surgery Consult date: 08/29/18 Requesting Physician: Braxton Parks Reason for Consult: Loculated right pleural effusion Primary Care Provider: UNKNOWN Chief Complaint: Cough, dyspnea, malaise History of Present Illness: 58-year-old female with a past medical history significant for hypertension, hyperlipidemia and history of previous CVA presents to the emergency department for evaluation of fever/chills and productive cough for the past 2 weeks. The patient reports she has had a cough productive of green sputum that is occasionally blood-tinged. She complains of right inspiratory chest pain. She has had subjective fever/chills although did not take her temperature at home. She who was seen by her primary care provider and prescribed antibiotics and steroids without improvement. She denies any substernal chest pain. No abdominal pain. No nausea/vomiting/diarrhea. No focal neurologic deficits. Review of Systems Constitutional: Reports body ache(s), Reports chills, Reports excessive sweating , Reports fatigue, Reports fever(s), Reports lack of energy, Reports malaise, Reports weakness Eyes: Denies blind spots, Denies blurry vision, Denies bulging eyes, Denies change in vision, Denies double vision, Denies discharge, Denies dry eyes, Denies floaters, Denies irritation, Denies itchy eyes, Denies loss of vision, Denies pain, Denies requires corrective lenses, Denies sensitivity to light, Denies other Ears, Nose, Mouth, and Throat: Denies abnormal hearing, Denies bleeding gums, Denies bad breath, Denies change in voice, Denies dental pain, Denies difficulty swallowing, Denies dizziness, Denies dry mouth, Denies ear discharge , Denies ear pain, Denies facial pain, Denies headache(s), Denies hearing loss, Denies hoarseness, Denies lip swelling, Denies nosebleed, Denies mouth lesions, Denies mouth pain, Denies nasal congestion, Denies nasal discharge, Denies nasal obstruction, Denies nasal trauma, Denies neck lump, Denies neck pain, Denies nose pain, Denies pain with swallowing, Denies poor balance, Denies post nasal drip, Denies ringing in the ears, Denies sinus pain, Denies sinus pressure , Denies sore throat, Denies throat swelling, Denies tongue swelling, Denies other Cardiovascular: Denies chest pain, Denies chest pain at rest, Denies chest pain with activity, Denies excessive sweating, Denies fainting, Denies fast heart rate, Denies foot swelling, Denies generalized swelling, Denies irregular heart rhythm, Denies leg pain with activity, Denies leg sores, Denies leg swelling, Denies lightheadedness, Denies radiating jaw, neck or arm pain, Denies rapid, pounding, or irregular heartbeat, Denies shortness of breath, Denies shortness of breath with activity, Denies shortness of breath when lying down, Denies shortness of breath causing sudden awakening, Denies slow heart rate, Denies other Respiratory: Reports chest congestion, Reports cough, Reports excessive phlegm production, Reports pain with cough, Reports shortness of breath Gastrointestinal: Denies abdominal pain, Denies belching, Denies black, tarry stools, Denies bloating, Denies bright, red blood in stools, Denies change in bowel habits, Denies constant urge to pass stool, Denies change in stools, Denies coffee ground vomit, Denies constipation, Denies cramping, Denies difficulty swallowing, Denies excessive passing of gas, Denies feeling full early, Denies heartburn, Denies incontinent of stools, Denies loose stools, Denies nausea, Denies pain with swallowing, Denies vomiting, Denies vomiting blood, Denies other Genitourinary: Denies abnormal periods, Denies abnormal vaginal bleeding, Denies absent period, Denies bleeding between periods, Denies blood in urine, Denies difficulty starting urination, Denies difficulty urinating, Denies dribbling after urination, Denies frequent nighttime urination, Denies genital itching, Denies genital lesions, Denies heavy periods, Denies hot flashes, Denies light periods, Denies nipple discharge, Denies painful intercourse, Denies painful periods, Denies painful urination, Denies pelvic pain, Denies prolapse symptoms, Denies sexual problems, Denies side pain, Denies urinary incontinence, Denies urinary urgency, Denies vaginal discharge, Denies vaginal dryness, Denies vaginal odor, Denies vaginal itching, Denies other Musculoskeletal: Denies abnormal walking, Denies back pain, Denies body aches, Denies decreased muscle mass, Denies deformity, Denies joint pain, Denies joint swelling, Denies limited joint movement, Denies loss of height, Denies muscle cramps, Denies muscle weakness, Denies neck pain, Denies numbness, Denies radiating pain into limb, Denies stiffness, Denies tingling, Denies other Skin/Breast: Denies acne, Denies bleeding lesions, Denies boil, Denies breast swelling, Denies breast skin changes, Denies breast pain, Denies breast lump, Denies change in breast shape, Denies change in hair, Denies change in skin color, Denies changing lesions, Denies dry skin, Denies excessive hair growth, Denies hair loss, Denies itching, Denies lesions, Denies nail changes, Denies new lesions, Denies nipple discharge, Denies non-healing lesions, Denies redness , Denies sensitivity to light, Denies rash, Denies skin pain, Denies skin ulcer , Denies sores, Denies stretch hughes, Denies unusual bruising, Denies wounds, Denies yellowing of the skin, Denies other Neurologic: Denies abnormal hearing, Denies abnormal movements, Denies abnormal speech, Denies abnormal walking, Denies behavioral changes, Denies burning sensations, Denies confusion, Denies dizziness, Denies fainting, Denies frequent falls, Denies headache(s), Denies lack of coordination, Denies localized weakness, Denies loss of vision, Denies memory loss, Denies numbness, Denies other visual disturbances, Denies radiating pain, Denies restless legs, Denies convulsions, Denies seizure-like activity, Denies sensory deficit, Denies tingling, Denies tingling/numbness/burning sensations, Denies tremor(s), Denies unsteadiness, Denies weakness, Denies other Psychiatric: Reports anxiety Endocrine: Denies cold intolerance, Denies excessive sweating, Denies flushing, Denies heat intolerance, Denies increased hunger, Denies increased thirst, Denies increased urination, Denies rapid, pounding, or irregular heartbeat, Denies other Hematologic/Lymphatic: Denies easy bleeding, Denies easy bruising, Denies enlarged lymph nodes, Denies other Allergic/Immunologic: Denies GI upset with certain foods, Denies hives, Denies itchy eyes, Denies lip swelling, Denies seasonal runny nose, Denies throat swelling, Denies tongue swelling, Denies wheezing, Denies other PMFSH - History History Provided By: Patient - Medical History Medical History: Medical History (Last Reviewed 08/29/18 @ 13:57 by Germaine Rosado MD) Hyperlipidemia Brain aneurysm Hypertension Stroke - Surgical History Surgical History: Surgical History (Last Reviewed 08/29/18 @ 13:57 by Germaine Rosado MD) History of appendectomy - Family History Family History: Family History (Last Reviewed 08/29/18 @ 13:57 by Germaine Rosado MD) Other Diabetes mellitus - Tobacco History Second Hand Smoke Exposure: Yes Tobacco Use In Past 30 Days: Yes ("i think i snuck one") Smoking Status: Former smoker Tobacco Type: Cigarettes - Alcohol History How Often Do You Have a Drink Containing Alcohol: Monthly or less - Substance Use History Substance History: No History of Abuse - Substance Use Type Marijuana Status: Active Route Used: Inhalation Frequency: none the last two weeks. but usually daily or every other day Reason for Use: Calm Down - Travel History Recent Travel in the [place] Within the Last 8 Weeks: No Recent Travel Out of the Country Within the Last 8 Weeks: No - Immunization History Tetanus Immunization: Unsure Medications and Allergies Active Medications: Active Medications Hydrocodone Bitart/Acetaminophen (Cedar 7.5/325) 1 tab PO Q6H PRN PRN Reason: Acute Pain Last Admin: 08/28/18 15:13 Dose: 1 tab Al Hydroxide/Mg Hydroxide (Milk Of Vidal Littlejohn) 30 ml PO Q12H PRN PRN Reason: Mild Constipation Albuterol (Duoneb Neb (Prn)) 1 ampul NEB Q4HR NEB PRN PRN Reason: SOB/Wheezing Amlodipine Besylate (Norvasc) 10 mg PO HS [facility] Last Admin: 08/28/18 22:09 Dose: 10 mg Atorvastatin Calcium (Lipitor) 80 mg PO HS [facility] Last Admin: 08/28/18 22:09 Dose: 80 mg Benzonatate (Tessalon Perles) 100 mg PO TID [facility] Last Admin: 08/29/18 13:20 Dose: 100 mg Bisacodyl (Dulcolax Supp) 10 mg RECTAL DAILY PRN PRN Reason: SEVERE CONSITIPATION Buspirone HCl (Buspar) 10 mg PO TID [facility] Last Admin: 08/29/18 13:20 Dose: 10 mg Clonidine HCl (Catapres) 0.1 mg PO HS [facility] Last Admin: 08/28/18 22:09 Dose: 0.1 mg Fenofibrate (Tricor) 145 mg PO DAILY [facility] Last Admin: 08/29/18 08:22 Dose: 145 mg Guaifenesin/Dextromethorphan (Robitussin Dm Liq) 10 ml PO Q6H PRN PRN Reason: COUGH Cefepime HCl 2,000 mg/ Sodium (Chloride) 100 mls @ 200 mls/hr IV.SIG Q8H [facility] Last Infusion: 08/29/18 12:45 Dose: Infused Sodium Chloride (Ns Inj) 1,000 mls @ 100 mls/hr IV.CONT .Q10H [facility] Last Admin: 08/29/18 03:16 Dose: 100 mls/hr Vancomycin HCl 1,500 mg/ (Sodium Chloride) 515 mls @ 250 mls/hr IV.SIG Q12H [facility] Last Infusion: 08/29/18 06:04 Dose: Infused Lactulose (Lactulose Liq) 30 ml PO DAILY PRN PRN Reason: SEVERE CONSITIPATION Levothyroxine Sodium (Synthroid) 200 mcg PO DAILY@0600 [facility] Last Admin: 08/29/18 05:19 Dose: 200 mcg Liothyronine Sodium (Cytomel) 5 mcg PO DAILY [facility] Last Admin: 08/29/18 08:22 Dose: 5 mcg Montelukast Sodium (Singulair) 10 mg PO QPM [facility] Last Admin: 08/29/18 00:36 Dose: 10 mg Morphine Sulfate (Morphine Inj) 4 mg IV.PUSH Q4H PRN PRN Reason: breakthrou pain Last Admin: 08/29/18 12:04 Dose: 4 mg Ondansetron HCl (Zofran Inj) 4 mg IV.PUSH Q6H PRN PRN Reason: NAUSEA OR VOMITING Pharmacy Profile Note (Vancomycin Consult Pharmacy) 1 each OTHER UNSCH PRN PRN Reason: Pharmacy to dose Senna/Docusate Sodium (Nirali-Colace) 1 tab PO BID [facility] Last Admin: 08/29/18 08:22 Dose: 1 tab Sennosides (Senokot) 17.2 mg PO Q12H PRN PRN Reason: Moderate Constipation Sodium Chloride (Ns Flush) 2 ml IV.FLUSH BID [facility] Last Admin: 08/29/18 08:22 Dose: 2 ml Sodium Chloride (Ns Flush) 2 ml IV.FLUSH PRN PRN PRN Reason: FLUSH AFTER USING IV ACCESS Trazodone HCl (Desyrel) 100 mg PO [facility] Last Admin: 08/28/18 22:09 Dose: 100 mg Allergies Allergy/AdvReac Type Severity Reaction Status Date / Time No Known Allergies Allergy Uncoded 10/23/12 14:51 Home Medications Medication Instructions Recorded Confirmed Type amlodipine 10 mg PO HS 08/27/18 08/27/18 History azithromycin 250 mg PO DAILY 08/27/18 08/27/18 History benzonatate 100 mg PO TID 08/27/18 08/27/18 History buspirone 10 mg PO TID 08/27/18 08/27/18 History cefdinir 300 mg PO Q12H 08/27/18 08/27/18 History clonidine HCl 0.1 mg PO HS 08/27/18 08/27/18 History fenofibrate 160 mg PO DAILY 08/27/18 08/27/18 History levothyroxine 200 mcg PO DAILY 08/27/18 08/27/18 History liothyronine 5 mcg PO DAILY 08/27/18 08/27/18 History methylprednisolone 4 mg PO PER PKG DIR 08/27/18 08/27/18 History montelukast 10 mg PO QPM 08/27/18 08/27/18 History promethazine-DM 5 ml PO Q4H PRN 08/27/18 08/27/18 History rosuvastatin 40 mg PO HS 08/27/18 08/27/18 History trazodone 100 mg PO HS 08/27/18 08/27/18 History Physical Exam Vital signs: Vital Signs 08/28/18 14:00 08/28/18 15:00 08/28/18 16:00 Temperature Pulse Rate 98 H 96 H 96 H Respiratory Rate Blood Pressure Pulse Oximetry 08/28/18 17:00 08/28/18 17:54 08/28/18 18:00 Temperature Pulse Rate 92 H 118 H Respiratory Rate 18 Blood Pressure Pulse Oximetry 08/28/18 18:06 08/28/18 18:15 08/28/18 18:30 Temperature 98.0 F Pulse Rate 113 H 113 H 108 H Respiratory Rate 20 28 H 20 Blood Pressure 123/77 132/81 139/86 Pulse Oximetry 91 L 91 L 92 L 08/28/18 18:34 08/28/18 18:39 08/28/18 19:00 Temperature Pulse Rate 113 H 102 H Respiratory Rate 20 Blood Pressure 148/72 H Pulse Oximetry 92 L 93 L 08/28/18 19:04 08/28/18 19:48 08/28/18 20:00 Temperature 98.5 F 98.5 F Pulse Rate 113 H 106 H Respiratory Rate 20 18 20 Blood Pressure 120/78 120/78 Pulse Oximetry 92 L 98 08/28/18 21:00 08/28/18 22:00 08/28/18 23:00 Temperature Pulse Rate 98 H 100 H Respiratory Rate 16 Blood Pressure Pulse Oximetry 08/28/18 23:47 08/29/18 00:00 08/29/18 01:09 Temperature 99.2 F Pulse Rate 99 H 74 69 Respiratory Rate 20 Blood Pressure 126/84 Pulse Oximetry 93 L 08/29/18 02:00 08/29/18 03:00 08/29/18 04:00 Temperature 98.8 F Pulse Rate 92 H 75 82 Respiratory Rate 20 Blood Pressure 115/81 Pulse Oximetry 94 L 08/29/18 05:00 08/29/18 06:00 08/29/18 07:00 Temperature Pulse Rate 93 H 102 H 69 Respiratory Rate Blood Pressure Pulse Oximetry 08/29/18 08:00 08/29/18 09:00 08/29/18 10:00 Temperature 98.1 F Pulse Rate 82 72 66 Respiratory Rate 18 Blood Pressure 116/71 Pulse Oximetry 94 L 08/29/18 11:00 08/29/18 12:00 08/29/18 13:00 Temperature 98.4 F Pulse Rate 78 90 94 H Respiratory Rate 18 Blood Pressure 125/77 Pulse Oximetry 95 Intake & Output 08/28/18 08/29/18 08/29/18 18:59 06:59 18:59 Intake Total 2099 3180 / 3180 100 / 100 Output Total 190 / 190 1580 / 1580 Balance 1910 / 1910 1600 / 1600 100 / 100 Weight 94.9 kg Intake: IV 2099 100 / 100 NS Inj 1,000 ML @ 100 mls/hr IV 1999 500 / 500 .CONT .Q10H [facility] Rx#:[id number] Azithromycin Inj 500 MG In NS 250 / 250 Inj 250 ML @ 250 mls/hr IV.SIG ONCE ONE Rx#:[id number] Maxipime Inj 2,000 MG In NS Inj 100 / 100 200 / 200 100 / 100 100 ML @ 200 mls/hr IV.SIG Q8H [facility] Rx#:[id number] Vancomycin Inj 1,500 MG In NS 1030 / 1030 Inj 500 ML @ 250 mls/hr IV.SIG Q12H [facility] Rx#:[id number] Oral 1200 / 1200 Output: Urine 1550 / 1550 Chest Tube Drainage 190 / 190 30 / 30 Right Upper Anterior 190 / 190 30 / 30 Other: Date of Last Bowel Movement 08/24/18 08/24/18 - Constitutional no acute distress - Routine HEENT Exam Head: Present: normocephalic, atraumatic Eye: Present: EOMI, PERRL, normal accommodation ENT: Present: mucous membranes moist - Routine Neck Exam Present: supple - Routine Respiratory Exam Present: decreased breath sounds, diminished air movement Comments: Decreased BS on the right - Routine Cardiovascular Exam Present: RRR, S1, S2. Absent: murmur - Routine Abdominal Exam Present: soft, normoactive bowel sounds - Routine Extremities Exam Present: pulses intact - Routine Skin Exam Present: intact - Routine Neurological Exam Present: alert, oriented X3 - Routine Psychiatric Exam Present: anxious Results - Labs CBC & Chem 7: 08/28/18 06:17 08/29/18 07:51 Labs: Laboratory Results - last 24 hr 08/29/18 08/29/18 07:51 09:35 Creatinine 0.47 L Estimated GFR Greater than 89 Pleural Amylase 21 Assessment and Plan - Assessment (1) Pleural effusion on right Code(s): J90 - Pleural effusion, not elsewhere classified Status: Acute (2) Pneumonia Code(s): J18.9 - Pneumonia, unspecified organism Status: Acute - Plan 58 y/o female with loculated right pleural effusion of unknown etiology. She had a drain placed by IR yesterday which produced a small amount of clear yellow drainage. I am unsure as to whether or not fluid was submitted for cultures, labs, and cytology. I doubt this drain will be sufficient to treat her loculated effusion. Recommend: 1. CXR today and repeat non-contrast CT this weekend 2. Pulmonary consultation She would likely benefit from surgical intervention and possible decortication. She had no family or friends with her and doesn't seem to understand her medical issues. Will follow. (2) Pneumonia Qualifiers: Pneumonia type: due to unspecified organism Laterality: right Lung location : unspecified part of lung Qualified Code(s): J18.9 - Pneumonia, unspecified organism
[2018-08-29] MEDS: amLODIPine 10 MG Tablet PO SCH (20:25)
[2018-08-29] MEDS: traZODone 100 MG Tablet PO SCH (20:25)
[2018-08-30] MEDS: Morphine Inj 4 MG/ML Vial IV.PUSH PRN ×6 (00:26→22:28)
[2018-08-30] MEDS: Sod Chloride 0.9% Inj 1,000 ML IV.CONT SCH ×3 (00:48→20:30)
[2018-08-30] MEDS ORDERED: Pharmacy Ordered Lab Info OTHER ONE (03:45)
[2018-08-30] MEDS: Vancomycin Inj 1,500 MG in Sodium Chlor 0.9% Inj 500 ML IV.SIG SCH (04:40)
[2018-08-30] MEDS: Benzonatate 100 MG Capsule PO SCH ×3 (08:24→17:35)
[2018-08-30] MEDS: Senna/Docusate Sodium 8.6/50 MG Tablet PO SCH ×2 (08:24→20:28)
[2018-08-30] MEDS: Fenofibrate 145 MG Tablet PO SCH (08:24)
[2018-08-30] MEDS: Liothyronine 5 MCG Tablet PO SCH (08:24)
[2018-08-30] MEDS ORDERED: Vancomycin Inj 2,000 MG in Sodium Chlor 0.9% Inj 500 ML IV.SIG SCH (09:00)
--- NOTE | 2018-08-30 12:46 | P.PNIM ---
Subjective Interval history: RN denies any deterioration since last night. Patient says her breathing is a little bit better, just reports some soreness in the chest tube site. Physical Exam Vital signs: Vital Signs 08/29/18 13:00 08/29/18 14:00 08/29/18 15:00 Temperature Pulse Rate 94 H 78 74 Respiratory Rate Blood Pressure Pulse Oximetry 08/29/18 16:00 08/29/18 17:00 08/29/18 18:00 Temperature 98.6 F Pulse Rate 100 H 78 73 Respiratory Rate 18 Blood Pressure 128/75 Pulse Oximetry 97 08/29/18 19:00 08/29/18 20:00 08/29/18 21:00 Temperature 98.3 F Pulse Rate 77 74 75 Respiratory Rate 20 Blood Pressure 137/82 Pulse Oximetry 96 08/29/18 22:00 08/29/18 23:00 08/30/18 00:00 Temperature 98.6 F Pulse Rate 77 81 68 Respiratory Rate 18 Blood Pressure 135/78 Pulse Oximetry 97 08/30/18 01:00 08/30/18 02:00 08/30/18 03:00 Temperature Pulse Rate 78 81 74 Respiratory Rate Blood Pressure Pulse Oximetry 08/30/18 03:58 08/30/18 04:00 08/30/18 05:00 Temperature 98.3 F Pulse Rate 72 70 77 Respiratory Rate 20 Blood Pressure 139/81 Pulse Oximetry 97 08/30/18 05:52 08/30/18 07:00 08/30/18 08:00 Temperature 98.1 F Pulse Rate 75 95 H 70 Respiratory Rate 18 Blood Pressure 120/72 Pulse Oximetry 95 08/30/18 09:00 08/30/18 10:00 08/30/18 11:00 Temperature Pulse Rate 74 72 67 Respiratory Rate Blood Pressure Pulse Oximetry Intake & Output 08/29/18 08/30/18 08/30/18 18:59 06:59 18:59 Intake Total 2060 / 2060 3190 / 3190 Output Total 840 / 840 1200 / 1200 50 / 50 Balance 1220 / 1220 1989 -50 / -50 Weight 91.8 kg Intake: IV 1100 / 1100 2230 / 2230 NS Inj 1,000 ML @ 100 mls/hr IV 1000 / 1000 1000 / 1000 .CONT .Q10H [facility] Rx#:[id number] Maxipime Inj 2,000 MG In NS Inj 100 / 100 200 / 200 100 ML @ 200 mls/hr IV.SIG Q8H [facility] Rx#:[id number] Vancomycin Inj 1,500 MG In NS 1030 / 1030 Inj 500 ML @ 250 mls/hr IV.SIG Q12H [facility] Rx#:[id number] Oral 960 / 960 960 / 960 Output: Urine 700 / 700 1200 / 1200 Chest Tube Drainage 140 / 140 50 / 50 Right Upper Anterior 140 / 140 50 / 50 Other: # Bowel Movements 0 Narrative: Good aeration on the left, improved breath sounds on the right Chest tube in place anteriorly on the right Heart sounds regular rate rhythm Mild distress secondary to pain, appears more comfortable today than yesterday No lower extremity edema Awake and alert Results Labs CBC & Chem 7: 08/28/18 06:17 08/29/18 07:51 Labs: Microbiology 08/27/18 22:37 Sputum - Expectorated Sputum Gram Stain - Final 08/27/18 22:37 Sputum - Expectorated Sputum Sputum Culture - Final Heavy growth normal respiratory veronica 08/27/18 18:10 Blood - Peripheral Aerobic Blood Culture - Preliminary No growth in 3 days 08/27/18 18:10 Blood - Peripheral Anaerobic Blood Culture - Preliminary No growth in 3 days 08/27/18 16:15 Blood - Peripheral Aerobic Blood Culture - Preliminary No growth in 3 days 08/27/18 16:15 Blood - Peripheral Anaerobic Blood Culture - Preliminary No growth in 3 days 08/29/18 09:35 Fluid - Other Fungal Smear - Final No fungal elements seen 08/29/18 09:35 Fluid - Pleural fluid Gram Stain - Final Assessment and Plan (1) Pleural effusion on right: Code(s): J90 - Pleural effusion, not elsewhere classified Status: Acute (2) Pneumonia: Code(s): J18.9 - Pneumonia, unspecified organism Status: Acute Plan 58-year-old white female admitted with shortness of breaths. Found to have loculated pleural effusion on the right. 1. Pneumonia/empyema/sepsis -Patient tachycardic, hypoxic with leukocytosis - hypoxia resolved -Chest CT significant for moderate to large loculated pleural effusion on the right -Status post chest tube insertion on the right, pleural cultures pending -Appreciate CT input -Vancomycin, cefepime and azithromycin; pleural fluids pendings -possible decortication planned -norco and morphine 2. Hypertension/hyperlipidemia Continue home medications Diet as tolerated Progress Note: Quality VTE Deep Vein Thrombosis/Pulmonary Embolism Present on Admission: No _ (1) Pneumonia Qualifiers: Aspiration pneumonia type: Laterality: right Lung location: unspecified part of lung Pneumonia type: due to unspecified organism Qualified Code(s): J18.9 - Pneumonia, unspecified organism
[2018-08-30] MEDS: Vancomycin Inj 2,000 MG in Sodium Chlor 0.9% Inj 500 ML IV.SIG SCH (16:29)
[2018-08-30] MEDS: Montelukast 10 MG Tablet PO SCH (17:35)
[2018-08-30] MEDS: amLODIPine 10 MG Tablet PO SCH (20:28)
[2018-08-30] MEDS: traZODone 100 MG Tablet PO SCH (20:29)
--- NOTE | 2018-08-30 23:00 | CT ---
EXAM DATE: 08/28/2018 6:01 PM EST AGE/SEX: 58 years / Female INDICATIONS: Right sided pleural effusion. CLINICAL DATA: This is the patient's initial encounter. Patient reports that signs and symptoms have been present for 1 day and indicates a pain score of 0/10. MEDICAL/SURGICAL HISTORY: Hypertension. Stroke. None. MEDICATION(S): 1mg midazolam (Versed) IV 200mcg fentanyl (Sublimaze) IV DEVICE(S): 10 Fr Lingle Chest tube . . COMPARISON: [facility], [facility] PULMONARY W CONTRAST W 3D, 08/27/2018. . PROCEDURE : CT guided left chest tube placement. Conscious sedation with continuous EKG and oximetry monitoring. EKG and oximetry remained stable throughout the procedure. The risks, benefits and alternatives to the procedure were explained and verbal and written consent w as obtained. The site was prepped in sterile fashion. Full sterile technique was used, including ca p, mask, sterile gloves and gown and a large sterile sheet. Hand hygiene and 2% chlorhexidine and/or betadine/alcohol prep was utilized per protocol for cutaneous antisepsis. The skin and subcutaneous tissues were infiltrated with local anesthetic solution. Using automated exposure control and adjus tment of the mA and/or kV according to patient size, radiation dose was kept as low as reasonably ach ievable to obtain optimal diagnostic quality images. DICOM format image data is available electronic ally for review and comparison. [employer] images show a complex, partially loculated right-sided pleural effusion with compressive atelec tatic changes in the right middle and lower lobes. With CT guidance the chest was punctured and the prescribed catheter was placed in the left upper lob e of the lung. Wall suction was applied. Post procedure images demonstrate satisfactory position of the tube. The catheter was sutured in place and a Percu-Stay was applied. The patient tolerated the procedure well and there were no complications. A total of 200 cc of straw- colored fluid was removed on the CT table. The patient was sent to post anesthesia recovery in stable condition. CONCLUSION: 1. Uncomplicated chest tube placement as above. Electronically signed by: Taiwo Mora MD Board Certified Radiologist 08/30/2018 10:58 PM EST
[2018-08-31] MEDS: Morphine Inj 4 MG/ML Vial IV.PUSH PRN ×5 (02:38→20:31)
[2018-08-31] MEDS: Vancomycin Inj 2,000 MG in Sodium Chlor 0.9% Inj 500 ML IV.SIG SCH (04:14)
[2018-08-31] MEDS: Sod Chloride 0.9% Inj 1,000 ML IV.CONT SCH (05:37)
--- NOTE | 2018-08-31 05:43 | XR ---
EXAM DATE: 08/31/2018 5:30 AM EST AGE/SEX: 58 years / Female INDICATIONS: Shortness of breath, possible pulmonary disease. CLINICAL DATA: This is the patient's subsequent encounter. Patient reports that signs and symptoms h ave been present for 4 - 6 days and indicates a pain score of 0/10. MEDICAL/SURGICAL HISTORY: Hypertension. Stroke. Chest tube, right. COMPARISON: [facility], XR CHEST PA AND LAT, 08/27/2018. . FINDINGS: A single frontal expiratory view of the chest was performed. Interval placement of a cope loop thorac ostomy tube in the right mid chest. Effusion previously seen in the right upper portion of the hemith orax has resolved but there is persistent right basilar consolidation/effusion. Left lung is clear. H eart size is normal. Osseous structures are intact. CONCLUSION: 1. [Interval placement of a right sided cope loop thoracostomy tube. 2. Probable loculated component of the right-sided effusion the right apex has resolved. Persistent right basilar consolidation/effusion. Left lung remains clear. Electronically signed by: Taiwo Mora MD Board Certified Radiologist 08/31/2018 5:42 AM EST
[2018-08-31 10:28] LABS: Glomerular Filtration Rate Greater Than 89 mL/min (>89)
[2018-08-31] MEDS: Benzonatate 100 MG Capsule PO SCH ×3 (10:55→18:27)
[2018-08-31] MEDS: Liothyronine 5 MCG Tablet PO SCH (10:55)
[2018-08-31] MEDS: Fenofibrate 145 MG Tablet PO SCH (10:55)
[2018-08-31] MEDS: Senna/Docusate Sodium 8.6/50 MG Tablet PO SCH ×2 (10:55→20:34)
[2018-08-31 11:17] LABS: Baso # (Auto) 0.1 th/mm3 (0.0-0.2); Baso % (Auto) 0.7 % (0.0-2.0); Eos # (Auto) 0.8 th/mm3 (0.0-0.4); Eos % (Auto) 5.3 % (0.0-4.0); Hemoglobin 11.1 gm/dL (11.6-15.3); Lymph # (Auto) 2.1 th/mm3 (1.0-4.8); Lymph % (Auto) 14.8 % (9.0-44.0); Mean Corpuscular HGB Conc 35.8 % (32.0-36.0); Mean Corpuscular Hemoglobin 31.8 pg (27.0-34.0); Mean Corpuscular Volume 88.8 fL (80.0-100.0); Mean Platelet Volume 7.3 fL (7.0-11.0); Mono % (Auto) 6.9 % (0.0-8.0); Neut # (Auto) 10.3 th/mm3 (1.8-7.7); Neut % (Auto) 72.3 % (16.0-70.0); Platelet Count 662 th/mm3 (150-450); Red Cell Distribution Width 14.6 % (11.6-17.2); White Blood Count 14.3 th/mm3 (4.0-11.0)
--- NOTE | 2018-08-31 11:53 | P.PNIM ---
Subjective Interval history: Nursing denies any deterioration since last night. Patient herself reports having increased pain today. Physical Exam Vital signs: Vital Signs 08/30/18 12:00 08/30/18 13:00 08/30/18 14:00 Temperature 98.3 F Pulse Rate 82 72 76 Respiratory Rate 18 Blood Pressure 130/77 Pulse Oximetry 95 08/30/18 15:00 08/30/18 16:00 08/30/18 16:27 Temperature 98.4 F Pulse Rate 74 73 Respiratory Rate 18 18 Blood Pressure 127/76 Pulse Oximetry 96 08/30/18 17:00 08/30/18 18:00 08/30/18 19:00 Temperature Pulse Rate 78 76 78 Respiratory Rate Blood Pressure Pulse Oximetry 08/30/18 20:00 08/30/18 21:00 08/30/18 22:00 Temperature 98.6 F Pulse Rate 76 75 77 Respiratory Rate 18 Blood Pressure 131/75 Pulse Oximetry 95 08/30/18 23:00 08/31/18 00:00 08/31/18 01:00 Temperature 98.4 F Pulse Rate 71 67 77 Respiratory Rate 18 Blood Pressure 127/74 Pulse Oximetry 96 08/31/18 02:00 08/31/18 03:00 08/31/18 04:00 Temperature 98.6 F Pulse Rate 70 70 68 Respiratory Rate 18 Blood Pressure 129/71 Pulse Oximetry 95 08/31/18 05:00 08/31/18 05:43 Temperature Pulse Rate 72 71 Respiratory Rate Blood Pressure Pulse Oximetry Intake & Output 08/30/18 08/31/18 08/31/18 18:59 06:59 18:59 Intake Total 820 / 820 2200 / 2200 Output Total 2150 / 2150 1550 / 1550 Balance -1330 / -1330 650 / 650 Weight 91.8 kg Intake: IV 100 / 100 1240 / 1240 Maxipime Inj 2,000 MG In NS Inj 100 / 100 200 / 200 100 ML @ 200 mls/hr IV.SIG Q8H [facility] Rx#:[id number] Vancomycin Inj 2,000 MG In NS 1040 / 1040 Inj 500 ML @ 250 mls/hr IV.SIG Q12H [facility] Rx#:[id number] Oral 720 / 720 960 / 960 Output: Urine 2100 / 2100 1500 / 1500 Chest Tube Drainage 50 / 50 50 / 50 Right Upper Anterior 50 / 50 50 / 50 Other: # Bowel Movements 0 Narrative: Good aeration on the left, diminished but present breath sounds on the right Chest tube in place anteriorly on the right Heart sounds regular rate rhythm Mild distress secondary to pain, somewhat more pain today No lower extremity edema Awake and alert Results Labs CBC & Chem 7: 08/31/18 10:31 08/31/18 09:24 Labs: Microbiology 08/27/18 18:10 Blood - Peripheral Aerobic Blood Culture - Preliminary No growth in 4 days 08/27/18 18:10 Blood - Peripheral Anaerobic Blood Culture - Preliminary No growth in 4 days 08/27/18 16:15 Blood - Peripheral Aerobic Blood Culture - Preliminary No growth in 4 days 08/27/18 16:15 Blood - Peripheral Anaerobic Blood Culture - Preliminary No growth in 4 days 08/29/18 09:35 Fluid - Pleural fluid Gram Stain - Final 08/29/18 09:35 Fluid - Pleural fluid Body Fluid Culture - Preliminary No growth in 48 hours 08/27/18 22:37 Sputum - Expectorated Sputum Gram Stain - Final 08/27/18 22:37 Sputum - Expectorated Sputum Sputum Culture - Final Heavy growth normal respiratory veronica 08/29/18 09:35 Fluid - Other Fungal Smear - Final No fungal elements seen Imaging Imaging: Impressions Chest Tube Insertion 08/28/18 00:00 CONCLUSION: 1. Uncomplicated chest tube placement as above. Chest X-Ray 08/31/18 06:00 CONCLUSION: 1. [Interval placement of a right sided cope loop thoracostomy tube. 2. Probable loculated component of the right-sided effusion the right apex has resolved. Persistent right basilar consolidation/effusion. Left lung remains clear. Assessment and Plan (1) Pleural effusion on right: Code(s): J90 - Pleural effusion, not elsewhere classified Status: Acute (2) Pneumonia: Code(s): J18.9 - Pneumonia, unspecified organism Status: Acute Plan 58-year-old white female admitted with shortness of breaths. Found to have loculated pleural effusion on the right. 1. Pneumonia/empyema/sepsis -Patient tachycardic, hypoxic with leukocytosis - hypoxia resolved -Chest CT significant for moderate to large loculated pleural effusion on the right -Status post chest tube insertion on the right, pleural cultures pending -Appreciate CT input -We will de-escalate antibiotics suggests cefepime and azithromycin for now, trend CBC -possible decortication planned, pulmonology consultation pending -norco and morphine Repeat chest x-ray shows chest tube in right place with resolution of loculated effusion suspected 2. Hypertension/hyperlipidemia Continue home medications Diet as tolerated Progress Note: Quality VTE Deep Vein Thrombosis/Pulmonary Embolism Present on Admission: No _ (1) Pneumonia Qualifiers: Aspiration pneumonia type: Laterality: right Lung location: unspecified part of lung Pneumonia type: due to unspecified organism Qualified Code(s): J18.9 - Pneumonia, unspecified organism
--- NOTE | 2018-08-31 15:42 | P.PNCV ---
- Note Subjective/Hospital Course: CXR and ct chest noted moderate to large loculated right pleural effusion pt scheduled for Right VATS, possible thoracotomy , decortication in am Objective: Vital Signs - 24 hr 08/30/18 16:00 08/30/18 16:27 08/30/18 17:00 Temperature 98.4 F Pulse Rate 73 78 Respiratory Rate 18 18 Blood Pressure 127/76 Pulse Oximetry 96 08/30/18 18:00 08/30/18 19:00 08/30/18 20:00 Temperature 98.6 F Pulse Rate 76 78 76 Respiratory Rate 18 Blood Pressure 131/75 Pulse Oximetry 95 08/30/18 21:00 08/30/18 22:00 08/30/18 23:00 Temperature Pulse Rate 75 77 71 Respiratory Rate Blood Pressure Pulse Oximetry 08/31/18 00:00 08/31/18 01:00 08/31/18 02:00 Temperature 98.4 F Pulse Rate 67 77 70 Respiratory Rate 18 Blood Pressure 127/74 Pulse Oximetry 96 08/31/18 03:00 08/31/18 04:00 08/31/18 05:00 Temperature 98.6 F Pulse Rate 70 68 72 Respiratory Rate 18 Blood Pressure 129/71 Pulse Oximetry 95 08/31/18 05:43 08/31/18 08:00 08/31/18 12:00 Temperature 97.8 F 97.9 F Pulse Rate 71 73 76 Respiratory Rate 18 18 Blood Pressure 118/68 114/69 Pulse Oximetry 96 95 GENERAL: A&O x 3 SKIN: Warm and dry. HEAD: Normocephalic. EYES: No scleral icterus. No injection or drainage. NECK: Supple, trachea midline. No JVD or lymphadenopathy. CARDIOVASCULAR: Regular rate and rhythm without murmurs, gallops, or rubs. RESPIRATORY: coarse breath sounds, right > left more diminished on the right No accessory muscle use. GASTROINTESTINAL: Abdomen soft, non-tender, nondistended. MUSCULOSKELETAL: No cyanosis, or edema. BACK: Nontender without obvious deformity. No CVA tenderness. Labs: Laboratory Results - last 12 hr 08/31/18 08/31/18 09:24 10:31 WBC 14.3 H RBC 3.50 L Hgb 11.1 L Hct 31.0 L MCV 88.8 MCH 31.8 MCHC 35.8 RDW 14.6 Plt Count 662 H MPV 7.3 Neut % (Auto) 72.3 H Lymph % (Auto) 14.8 Brooks % (Auto) 6.9 Eos % (Auto) 5.3 H Baso % (Auto) 0.7 Neut # (Auto) 10.3 H Lymph # (Auto) 2.1 Brooks # (Auto) 1.0 H Eos # (Auto) 0.8 H Baso # (Auto) 0.1 WBC Differential . Differential Comment Auto diff final Creatinine 0.46 L Estimated GFR Greater than 89 Result Diagrams: 08/31/18 10:31 08/31/18 09:24 - Plan (1) Pleural effusion on right Plan: for surgery in am (2) Pneumonia (2) Pneumonia Qualifiers: Pneumonia type: due to unspecified organism Laterality: right Lung location : unspecified part of lung Qualified Code(s): J18.9 - Pneumonia, unspecified organism
[2018-08-31] MEDS ORDERED: Sodium Chlor 0.9% Inj 77.5 ML, Papaverine Inj 60 MG, Nitroglycerin Inj 100 MCG, dilTIAZ... IRRIGATION SCH ×3 (15:45)
[2018-08-31] MEDS ORDERED: Sodium Chloride 0.9% Irr Bot 500 ML, ceFAZolin Inj 500 MG IRRIGATION SCH ×2 (15:45)
[2018-08-31] MEDS ORDERED: Chlorhexidine 4% Topical 120 APPLIC/120 ML Bottle TOPICAL SCH (15:45)
[2018-08-31] MEDS ORDERED: ceFAZolin Inj 2,000 MG in Sodium Chlor 0.9% Inj 80 ML IV.SIG SCH (16:00)
[2018-08-31] MEDS: Montelukast 10 MG Tablet PO SCH (18:27)
[2018-08-31 18:33] LABS: INR 1.1 Ratio
--- NOTE | 2018-08-31 18:39 | MB ---
cc: Henry Figueroa MD DATE: 08/31/2018 REASON FOR CONSULTATION: Pneumonia, loculated effusion. HISTORY OF PRESENT ILLNESS: The patient is a 58-year-old female with a known history of hypertension, hyperlipidemia, previous CVA, who presents with fever, chills, cough, expectoration of greenish mucoid secretion. CT scan of the chest with loculated right pleural effusion. Failed to completely drain with chest tube placement, seen by thoracic surgery, and decortication is planned. PAST MEDICAL HISTORY: Hypertension, hyperlipidemia, previous CVA. SOCIAL HISTORY: She used to smoke, not at present. Drinks alcohol socially. Uses marijuana on occasion. FAMILY HISTORY: Noncontributory. MEDICATIONS: Include nebulized albuterol, amlodipine, atorvastatin, BuSpar, cefazolin, cefepime, clonidine, fenofibrate, guaifenesin, dextromethorphan, levothyroxine, montelukast, morphine as needed. ALLERGIES: NONE KNOWN TO MEDICATION. REVIEW OF SYSTEMS: A 12-point review of systems as per HPI and past history, otherwise negative. PHYSICAL EXAMINATION: GENERAL: The patient is alert. VITAL SIGNS: Temperature 98, pulse 80, respirations 18, blood pressure 120/80. HEENT: Unremarkable. Eyes without icterus. NECK: Without adenopathy or thyroid enlargement. CHEST: Decreased breath sounds right base. CARDIAC: PMI not appreciated. S1, S2 audible. No murmur. No rub. ABDOMEN: Lax, bowel sounds audible. EXTREMITIES: No clubbing, cyanosis or edema. LABORATORY DATA: White count 14,000, hemoglobin 11, hematocrit 31, platelets 666,000. Sodium 140, potassium 3.8, BUN 10, creatinine 0.6. INR 1.1. IMPRESSION: 1. Loculated right effusion. 2. Pneumonia. 3. Hypertension. 4. Status post cerebrovascular accident. 5. Hyperlipidemia. PLAN: The patient had a large pleural effusion, loculated, probably related to previous underlying pneumonia. Antibiotic therapy has been instituted and appropriately so. A decortication is planned. We will follow her care along with you and, depending on progress, proceed further. I do thank you for asking me to partake in Ms. Mcdonald's care. Henry Figueroa MD WWW/rh , 05:34 PM , 05:42 PM
[2018-08-31 18:48] LABS: Alanine Aminotransferase 17 U/L (10-53); Albumin 2.3 g/dL (3.4-5.0); Anion Gap 8 meq/L (5-15); Aspartate Aminotransferase 10 U/L (15-37); Blood Urea Nitrogen 7 mg/dL (7-18); Calcium 8.6 mg/dL (8.5-10.1); Carbon Dioxide 30.5 meq/L (21.0-32.0); Chloride 104 meq/L (98-107); Glomerular Filtration Rate Greater Than 89 mL/min (>89); Glucose,Random 78 mg/dL (74-106); Potassium 3.1 meq/L (3.5-5.1); Sodium 142 meq/L (136-145)
[2018-08-31 18:51] LABS: Alkaline Phosphatase 56 U/L (45-117); Total Protein 6.3 g/dL (6.4-8.2)
[2018-08-31] MEDS: traZODone 100 MG Tablet PO SCH (20:34)
[2018-08-31] MEDS: amLODIPine 10 MG Tablet PO SCH (20:34)
[2018-09-01] MEDS: Morphine Inj 4 MG/ML Vial IV.PUSH PRN ×3 (00:29→08:43)
[2018-09-01] MEDS: Sod Chloride 0.9% Inj 1,000 ML IV.CONT SCH ×2 (02:45→02:46)
[2018-09-01] MEDS ORDERED: Pharmacy Ordered Lab Info OTHER ONE (03:45)
[2018-09-01 04:10] LABS: Bilirubin,Urine Negative (Negative); Clarity,Urine Clear (Clear); Color,Urine Yellow (Yellw/Straw); Glucose,Urine (UA) Negative (Negative); Leukocyte Esterase,Urine Negative (Negative); Mucus,Urine Few /lpf (Occasional); Nitrite,Urine Negative (Negative); Specific Gravity,Urine 1.008 (1.002-1.035); Squamous Epithelial Cell,Urine <1 /hpf (0-5)
[2018-09-01 05:33] LABS: Baso # (Auto) 0.1 th/mm3 (0.0-0.2); Baso % (Auto) 0.7 % (0.0-2.0); Eos # (Auto) 0.9 th/mm3 (0.0-0.4); Eos % (Auto) 5.5 % (0.0-4.0); Hematocrit 33.5 % (35.0-46.0); Lymph # (Auto) 2.1 th/mm3 (1.0-4.8); Lymph % (Auto) 12.5 % (9.0-44.0); Mean Corpuscular HGB Conc 32.8 % (32.0-36.0); Mean Corpuscular Hemoglobin 29.7 pg (27.0-34.0); Mean Corpuscular Volume 90.5 fL (80.0-100.0); Mean Platelet Volume 7.2 fL (7.0-11.0); Mono # (Auto) 1.1 th/mm3 (0.0-0.9); Mono % (Auto) 6.4 % (0.0-8.0); Neut # (Auto) 12.4 th/mm3 (1.8-7.7); Neut % (Auto) 74.9 % (16.0-70.0); Platelet Count 707 th/mm3 (150-450); Red Blood Count 3.71 mil/mm3 (4.00-5.30); Red Cell Distribution Width 14.2 % (11.6-17.2); White Blood Count 16.5 th/mm3 (4.0-11.0)
[2018-09-01] MEDS: Fenofibrate 145 MG Tablet PO SCH (08:40)
[2018-09-01] MEDS: Benzonatate 100 MG Capsule PO SCH ×3 (08:42→23:49)
[2018-09-01] MEDS: Senna/Docusate Sodium 8.6/50 MG Tablet PO SCH ×2 (08:42→20:11)
[2018-09-01] MEDS: Liothyronine 5 MCG Tablet PO SCH (08:42)
[2018-09-01] MEDS ORDERED: ceFAZolin 2 GM Premix Inj 2 GM/50 ML PIGGYBACK IV.SIG ONE (13:16)
[2018-09-01] MEDS ORDERED: Bupivacaine 0.5% Inj 50 ML MDV Vial ONE (13:17)
--- NOTE | 2018-09-01 13:17 | P.PNCV ---
- Note Subjective/Hospital Course: 58-year-old female with a past medical history significant for hypertension, hyperlipidemia and history of previous CVA presents to the emergency department for evaluation of fever/chills and productive cough for the past 2 weeks. The patient reports she has had a cough productive of green sputum that is occasionally blood-tinged. She complains of right inspiratory chest pain. She has had subjective fever/chills although did not take her temperature at home. She who was seen by her primary care provider and prescribed antibiotics and steroids without improvement. She denies any substernal chest pain. No abdominal pain. No nausea/vomiting/diarrhea. No focal neurologic deficits. 08/[address] chest noted moderate to large loculated right pleural effusion pt scheduled for Right VATS, possible thoracotomy , decortication in am 09/01 for surgery today Objective: Vital Signs - 24 hr 08/31/18 14:00 08/31/18 15:00 08/31/18 16:00 Temperature 98.0 F Pulse Rate 70 62 79 Respiratory Rate 18 Blood Pressure 122/78 Pulse Oximetry 96 08/31/18 16:33 08/31/18 17:00 08/31/18 18:00 Temperature Pulse Rate 78 78 Respiratory Rate Blood Pressure Pulse Oximetry 96 08/31/18 19:00 08/31/18 20:00 08/31/18 20:44 Temperature 99.2 F Pulse Rate 82 78 Respiratory Rate 22 20 Blood Pressure 136/74 Pulse Oximetry 95 08/31/18 21:00 08/31/18 21:45 08/31/18 22:00 Temperature Pulse Rate 84 76 Respiratory Rate Blood Pressure Pulse Oximetry 95 08/31/18 23:00 09/01/18 00:00 09/01/18 01:00 Temperature 98.2 F Pulse Rate 73 80 68 Respiratory Rate 16 Blood Pressure 121/76 Pulse Oximetry 95 09/01/18 02:00 09/01/18 03:00 09/01/18 04:00 Temperature 99.5 F Pulse Rate 67 74 76 Respiratory Rate 18 Blood Pressure 126/72 Pulse Oximetry 94 L 09/01/18 04:13 09/01/18 05:00 09/01/18 05:02 Temperature Pulse Rate 69 Respiratory Rate 18 20 Blood Pressure Pulse Oximetry 09/01/18 06:00 09/01/18 07:00 09/01/18 08:00 Temperature 98.2 F Pulse Rate 76 68 77 Respiratory Rate 17 Blood Pressure 145/78 H Pulse Oximetry 09/01/18 10:00 09/01/18 10:46 09/01/18 12:00 Temperature 98.2 F Pulse Rate 75 75 Respiratory Rate 17 Blood Pressure 128/77 Pulse Oximetry 93 L GENERAL: A&0 x 3 SKIN: Warm and dry. HEAD: Normocephalic. EYES: No scleral icterus. No injection or drainage. NECK: Supple, trachea midline. No JVD or lymphadenopathy. CARDIOVASCULAR: Regular rate and rhythm without murmurs, gallops, or rubs. diminished breath sounds right base RESPIRATORY: Breath sounds equal bilaterally. No accessory muscle use. GASTROINTESTINAL: Abdomen soft, non-tender, nondistended. MUSCULOSKELETAL: No cyanosis, or edema. BACK: Nontender without obvious deformity. No CVA tenderness. Labs: Laboratory Results - last 12 hr 09/01/18 09/01/18 03:06 05:04 WBC 16.5 H RBC 3.71 L Hgb 11.0 L Hct 33.5 L MCV 90.5 MCH 29.7 MCHC 32.8 RDW 14.2 Plt Count 707 H MPV 7.2 Neut % (Auto) 74.9 H Lymph % (Auto) 12.5 J[place] % (Auto) 6.4 Eos % (Auto) 5.5 H Baso % (Auto) 0.7 Neut # (Auto) 12.4 H Lymph # (Auto) 2.1 [place] # (Auto) 1.1 H Eos # (Auto) 0.9 H Baso # (Auto) 0.1 WBC Differential . Differential Comment Auto diff final Urine Color Yellow Urine Clarity Clear Urine pH 6.0 Ur Specific Smith 1.008 Urine Protein Negative Urine Glucose (UA) Negative Urine Ketones Negative Urine Occult Blood Negative Urine Nitrate Negative Urine Bilirubin Negative Urine Urobilinogen Less than 2 Ur Leukocyte Esterase Negative Urine RBC 1 Urine WBC 1 Ur Squamous Epith Cells <1 Urine Mucus Few H Micro UA Comment Culture not ind Ur Microscopic Review Not Reportable Urine Culture Comments Culture not ind Result Diagrams: 09/01/18 05:04 08/31/18 17:16 - Plan (1) Pleural effusion on right Plan: for surgery today (2) Pneumonia (2) Pneumonia Qualifiers: Pneumonia type: due to unspecified organism Laterality: right Lung location : unspecified part of lung Qualified Code(s): J18.9 - Pneumonia, unspecified organism
[2018-09-01] MEDS ORDERED: Lidocaine PF 1% Inj 5 ML Syringe OTHER ONE (14:17)
[2018-09-01] MEDS ORDERED: Labetalol HCl Inj 100 MG/20 ML Vial IV.CONT ONE (14:17)
[2018-09-01] MEDS ORDERED: Sugammadex Inj 200 MG/2 ML Vial IV.PUSH ONE (15:22)
[2018-09-01] MEDS ORDERED: Bisacodyl 10 MG Supp RECTAL PRN (15:39)
[2018-09-01] MEDS ORDERED: Post-op Orders (for Pharmacy) OTHER STA (15:39)
[2018-09-01] MEDS ORDERED: Potassium Chlor 20 mEq Premix 20 MEQ/100 ML PIGGYBACK IV.SIG PRN (15:39)
--- NOTE | 2018-09-01 15:47 | P.OP ---
- Preoperative Diagnosis (1) Loculated pleural effusion (2) Pneumonia Postoperative Diagnosis: same Date of procedure: 09/01/18 Procedure: Right thoracoscopic exploration to drain loculated effusion, lysis of adhesions , pleural biopsies. Pleural fluid for cytology and cultures. Pleural fluid for labs. Anesthesia: NGUYỄN Surgeon: Germaine Rosado MD Patroller: Omid Pettit Pathology: other (pleural biopsies and fluid) Operation and Findings: Drains: 32F chest tube Procedure Details After adequate general anesthesia the patient was placed in the left lateral decubitus position and the right chest was prepped and draped in usual manner. A small posterior port incision was performed and electrocautery was used to obtain hemostasis and carry the dissection down through the fascia. A 22G seeker needle was used initially posteriorly and serosanguious fluid was aspirated. A port was initially placed posteriorly followed by the camera. Visualization was somewhat difficult. Overall, ~500 ml of serosanguinous effusion was drained. A second anterior port was positioned at ~6th intercostal space. Blunt dissection was used to mobilize the lower lobe and drain as much of the effusion as possible. Exploration of the right hemithorax was significant for inflammatory changes with adhesions . Pleural biopsies were sent to Pathology. A 32F chest tube was positioned through the anterior port, and secured with a 0-silk suture. The lung was ventilated and no significant air leaks were found. The subcutaneous tissues of the posterior port was approximated running 2-0 Vicryl suture and the skin was approximated using running 4-0 Monocryl subcuticular stitch. All sponge and history counts were correct at the close the procedure and the patient was transferred to the PACU for recovery purposes.
[2018-09-01] MEDS ORDERED: fentaNYL Citrate Inj 100 MCG/2 ML Ampul ONE (16:19)
[2018-09-01] MEDS ORDERED: *morphine SULFATE 4 MG/ML PERIprocedure ONLY ONE (16:20)
[2018-09-01] MEDS ORDERED: diphenhydrAMINE HCl 50 MG/ML VIAL IV.PUSH ONE (16:29)
--- NOTE | 2018-09-01 16:42 | XR ---
EXAM DATE: 09/01/2018 4:38 PM EST AGE/SEX: 58 years / Female INDICATIONS: Post op thoracotomy. CLINICAL DATA: This is the patient's initial encounter. Patient reports that signs and symptoms have been present for 1 day and indicates a pain score of 7/10. MEDICAL/SURGICAL HISTORY: Hypertension. Stroke. None. COMPARISON: [facility] – [place], CT CHEST TUBE [facility] RIGHT, 08/28/2018. . FINDINGS: There is a right-sided chest tube identified with atelectasis and patchy consolidation at the right l lexie base. There is a small right effusion suspected. Small right apical pneumothorax suspected. There is hazy left upper lobe airspace disease. Osseous structures are intact. CONCLUSION: Small right apical pneumothorax and right pleural effusion noted with chest tube in place. Right basi lar atelectasis and airspace disease and left upper lobe airspace disease. Electronically signed by: Brett Chery MD Board Certified Radiologist 09/01/2018 4:41 PM EST
[2018-09-01] MEDS: Ketorolac Inj 30 MG/ML (IVP) Vial IV.PUSH SCH ×2 (16:46→21:49)
[2018-09-01 17:03] LABS: Total Protein,Pleural Fluid 4.4 gm/dL
[2018-09-01 17:36] LABS: Eosinophils,Pleural Fluid 4 %; Lymphocytes,Pleural Fluid 22 %; Monocytes,Pleural Fluid 4 %; Neutrophils,Pleural Fluid 70 %
[2018-09-01 17:39] LABS: RBC,Pleural Fluid 117837 /mm3 (0-0)
--- NOTE | 2018-09-01 18:41 | P.PNIM ---
Subjective Interval history: Patient seen in postoperative unit. Somnolent but awake. She reports pain is controlled. Denies any nausea or vomiting. Physical Exam Vital signs: Vital Signs 08/31/18 19:00 08/31/18 20:00 08/31/18 20:44 Temperature 99.2 F Pulse Rate 82 78 Respiratory Rate 22 20 Blood Pressure 136/74 Pulse Oximetry 95 08/31/18 21:00 08/31/18 21:45 08/31/18 22:00 Temperature Pulse Rate 84 76 Respiratory Rate Blood Pressure Pulse Oximetry 95 08/31/18 23:00 09/01/18 00:00 09/01/18 01:00 Temperature 98.2 F Pulse Rate 73 80 68 Respiratory Rate 16 Blood Pressure 121/76 Pulse Oximetry 95 09/01/18 02:00 09/01/18 03:00 09/01/18 04:00 Temperature 99.5 F Pulse Rate 67 74 76 Respiratory Rate 18 Blood Pressure 126/72 Pulse Oximetry 94 L 09/01/18 04:13 09/01/18 05:00 09/01/18 05:02 Temperature Pulse Rate 69 Respiratory Rate 18 20 Blood Pressure Pulse Oximetry 09/01/18 06:00 09/01/18 07:00 09/01/18 08:00 Temperature 98.2 F Pulse Rate 76 68 77 Respiratory Rate 17 Blood Pressure 145/78 H Pulse Oximetry 09/01/18 10:00 09/01/18 10:46 09/01/18 12:00 Temperature 98.2 F Pulse Rate 75 75 Respiratory Rate 17 Blood Pressure 128/77 Pulse Oximetry 93 L 09/01/18 16:08 09/01/18 16:15 09/01/18 16:30 Temperature 98.0 F Pulse Rate 97 H 98 H 86 Respiratory Rate 26 H 26 H 18 Blood Pressure 120/86 115/83 122/65 Pulse Oximetry 93 L 94 L 97 09/01/18 16:45 09/01/18 17:00 09/01/18 17:15 Temperature Pulse Rate 88 88 90 Respiratory Rate 12 12 20 Blood Pressure 120/65 119/66 128/74 Pulse Oximetry 92 L 92 L 92 L 09/01/18 17:30 09/01/18 18:00 Temperature 98.4 F Pulse Rate 88 88 Respiratory Rate 24 16 Blood Pressure 126/66 123/66 Pulse Oximetry 93 L 93 L Intake & Output 08/31/18 09/01/18 09/01/18 18:59 06:59 18:59 Intake Total 1100 / 1100 920 / 920 1320 / 1320 Output Total 1100 / 1100 1110 / 1110 1560 / 1560 Balance 0 / 0 -190 / -190 -240 / -240 Weight 96 kg Intake: IV 100 / 100 200 / 200 100 / 100 Maxipime Inj 2,000 MG In NS Inj 100 / 100 200 / 200 100 / 100 100 ML @ 200 mls/hr IV.SIG Q8H [facility] Rx#:[id number] Oral 1000 / 1000 720 / 720 120 / 120 Anesthesia Amount 1100 / 1100 Output: Urine 1100 / 1100 1100 / 1100 Estimated Blood Loss 50 / 50 Urine Amount (Catheter) 1350 / 1350 Indwelling Urethral Catheter 1350 / 1350 Chest Tube Drainage 160 / 160 Right Upper Anterior 160 / 160 Other: Date of Last Bowel Movement 08/30/18 Narrative: GENERAL: Patient sitting up in bed. Appears comfortable. SKIN: Warm and dry. HEAD: Normocephalic. EYES: No scleral icterus. No injection or drainage. NECK: Supple, trachea midline. No JVD. CARDIOVASCULAR: Regular rate and rhythm without murmurs, gallops, or rubs. RESPIRATORY: Coarse breath sounds bilaterally. Chest tube in place with serosanguineous fluid. No accessory muscle use. GASTROINTESTINAL: Abdomen soft, non-tender, nondistended. MUSCULOSKELETAL: No cyanosis, or edema. BACK: Nontender without obvious deformity. No CVA tenderness. Urinary Catheter Management Indwelling Urethral Catheter: Cath placed during this visit: yes Reason for continuing: Hourly intake/output Insertion date: 09/01/18 Insertion time: 14:30 Results Labs CBC & Chem 7: 09/01/18 05:04 08/31/18 17:16 Labs: Microbiology 08/27/18 18:10 Blood - Peripheral Aerobic Blood Culture - Final No growth in 5 days 08/27/18 18:10 Blood - Peripheral Anaerobic Blood Culture - Final No growth in 5 days 08/27/18 16:15 Blood - Peripheral Aerobic Blood Culture - Final No growth in 5 days 08/27/18 16:15 Blood - Peripheral Anaerobic Blood Culture - Final No growth in 5 days 08/29/18 09:35 Fluid - Pleural fluid Gram Stain - Final 08/29/18 09:35 Fluid - Pleural fluid Body Fluid Culture - Final No growth in 72 hours (aerobically and anaerobically ) 08/29/18 09:35 Fluid - Other Acid Fast Bacilli Smear - Final No acid fast bacilli seen Imaging Imaging: Impressions Chest X-Ray 09/01/18 15:39 CONCLUSION: Small right apical pneumothorax and right pleural effusion noted with chest tube in place. Right basilar atelectasis and airspace disease and left upper lobe airspace disease. Assessment and Plan Plan 58-year-old white female admitted with shortness of breaths. Found to have loculated pleural effusion on the right. //Pneumonia/empyema/sepsis -Patient tachycardic, hypoxic with leukocytosis - hypoxia resolved -Chest CT significant for moderate to large loculated pleural effusion on the right -Status post chest tube insertion on the right, pleural cultures pending -Appreciate CT input -We will de-escalate antibiotics suggests cefepime and azithromycin for now, trend CBC -possible decortication planned, pulmonology consultation pending -norco and morphine Repeat chest x-ray shows chest tube in right place with resolution of loculated effusion suspected = 09/01 status post decortication by cardiothoracic surgery Today. Cytology pending. Continue cefepime. Pulmonology following. Appreciate assistance. Follow-up cytology. //Hypertension/hyperlipidemia Continue home medications Diet as tolerated Discussed Condition With: Patient, nurse Progress Note: Quality VTE Deep Vein Thrombosis/Pulmonary Embolism Present on Admission: No
[2018-09-01] MEDS: amLODIPine 10 MG Tablet PO SCH (20:12)
[2018-09-01] MEDS: traZODone 100 MG Tablet PO SCH (20:48)
[2018-09-01] MEDS: Montelukast 10 MG Tablet PO SCH (23:50)
--- NOTE | 2018-09-02 01:10 | P.PN ---
Subjective Interval history: alert NAD Physical Exam Vital signs: Vital Signs 09/01/18 02:00 09/01/18 03:00 09/01/18 04:00 Temperature 99.5 F Pulse Rate 67 74 76 Respiratory Rate 18 Blood Pressure 126/72 Pulse Oximetry 94 L 09/01/18 04:13 09/01/18 05:00 09/01/18 05:02 Temperature Pulse Rate 69 Respiratory Rate 18 20 Blood Pressure Pulse Oximetry 09/01/18 06:00 09/01/18 07:00 09/01/18 08:00 Temperature 98.2 F Pulse Rate 76 68 77 Respiratory Rate 17 Blood Pressure 145/78 H Pulse Oximetry 09/01/18 10:00 09/01/18 10:46 09/01/18 12:00 Temperature 98.2 F Pulse Rate 75 75 Respiratory Rate 17 Blood Pressure 128/77 Pulse Oximetry 93 L 09/01/18 16:08 09/01/18 16:15 09/01/18 16:30 Temperature 98.0 F Pulse Rate 97 H 98 H 86 Respiratory Rate 26 H 26 H 18 Blood Pressure 120/86 115/83 122/65 Pulse Oximetry 93 L 94 L 97 09/01/18 16:45 09/01/18 17:00 09/01/18 17:15 Temperature Pulse Rate 88 88 90 Respiratory Rate 12 12 20 Blood Pressure 120/65 119/66 128/74 Pulse Oximetry 92 L 92 L 92 L 09/01/18 17:30 09/01/18 18:00 09/01/18 19:00 Temperature 98.4 F Pulse Rate 88 88 90 Respiratory Rate 24 16 14 Blood Pressure 126/66 123/66 133/83 Pulse Oximetry 93 L 93 L 94 L 09/01/18 19:15 09/01/18 20:00 09/01/18 20:52 Temperature 98.7 F Pulse Rate 91 H 94 H Respiratory Rate 14 18 Blood Pressure 138/93 H 121/60 Pulse Oximetry 94 L 94 L 93 L 09/01/18 21:00 09/01/18 22:00 09/01/18 23:00 Temperature Pulse Rate 89 82 73 Respiratory Rate Blood Pressure Pulse Oximetry 09/02/18 00:00 Temperature 98.1 F Pulse Rate 72 Respiratory Rate 16 Blood Pressure 108/59 L Pulse Oximetry 94 L Intake & Output 09/01/18 09/01/18 09/02/18 06:59 18:59 06:59 Intake Total 920 / 920 1320 / 1320 420 / 420 Output Total 1110 / 1110 1560 / 1560 425 / 425 Balance -190 / -190 -240 / -240 -5 / -5 Weight 96 kg Intake: IV 200 / 200 100 / 100 200 / 200 Maxipime Inj 2,000 MG In NS Inj 200 / 200 100 / 100 100 / 100 100 ML @ 200 mls/hr IV.SIG Q8H [facility] Rx#:[id number] Ancef Inj 1,000 MG In NS Inj 100 / 100 100 ML @ 200 mls/hr IV.SIG Q8H [facility] Rx#:[id number] Oral 720 / 720 120 / 120 220 / 220 Anesthesia Amount 1100 / 1100 Output: Urine 1100 / 1100 Estimated Blood Loss 50 / 50 Urine Amount (Catheter) 1350 / 1350 425 / 425 Indwelling Urethral Catheter 1350 / 1350 425 / 425 Chest Tube Drainage 10 / 10 160 / 160 Right Upper Anterior 10 10 160 / 160 Other: Date of Last Bowel Movement 08/30/18 08/30/18 - Constitutional no acute distress - Routine HEENT Exam Head: Present: normocephalic - Routine Neck Exam Present: supple - Routine Respiratory Exam Present: diminished air movement - Routine Cardiovascular Exam Present: RRR, S1, S2 - Routine Abdominal Exam Present: soft - Routine Skin Exam Present: intact - Routine Neurological Exam Present: alert, oriented X3 - Urinary Catheter Management Indwelling Urethral Catheter Cath placed during this visit: yes, but has since been removed by the nurse Reason for continuing: Not indwelling catheter Insertion date: 09/01/18 Insertion time: 14:30 Removal date: 09/01/18 Removal time: 18:55 Results - Labs CBC & Chem 7: 09/01/18 05:04 08/31/18 17:16 Laboratory Results - last 24 hr 09/01/18 09/01/18 09/01/18 03:06 05:04 15:20 WBC 16.5 H RBC 3.71 L Hgb 11.0 L Hct 33.5 L MCV 90.5 MCH 29.7 MCHC 32.8 RDW 14.2 Plt Count 707 H MPV 7.2 Neut % (Auto) 74.9 H Lymph % (Auto) 12.5 [place] % (Auto) 6.4 Eos % (Auto) 5.5 H Baso % (Auto) 0.7 Neut # (Auto) 12.4 H Lymph # (Auto) 2.1 [place] # (Auto) 1.1 H Eos # (Auto) 0.9 H Baso # (Auto) 0.1 WBC Differential . Differential Comment Auto diff final Urine Color Yellow Urine Clarity Clear Urine pH 6.0 Ur Specific [place] 1.008 Urine Protein Negative Urine Glucose (UA) Negative Urine Ketones Negative Urine Occult Blood Negative Urine Nitrate Negative Urine Bilirubin Negative Urine Urobilinogen Less than 2 Ur Leukocyte Esterase Negative Urine RBC 1 Urine WBC 1 Ur Squamous Epith Cells <1 Urine Mucus Few H Micro UA Comment Culture not ind Ur Microscopic Review Not Reportable Urine Culture Comments Culture not ind Pleural pH 8.0 Pleural Spec [place] 1.027 Pleural RBC Pleural Nuc Cells Pleural Neutrophils Pleural Lymphocytes Pleural Monocytes Pleural Eosinophils Pleural Fluid Comment Pleural Total Protein 4.4 Pleural Albumin 2.0 Pleural LDH 675 Pleural Glucose 66 Pleural Amylase 24 09/01/18 15:20 WBC RBC Hgb Hct MCV MCH MCHC RDW Plt Count MPV Neut % (Auto) Lymph % (Auto) [place] % (Auto) Eos % (Auto) Baso % (Auto) Neut # (Auto) Lymph # (Auto) [place] # (Auto) Eos # (Auto) Baso # (Auto) WBC Differential Differential Comment Urine Color Urine Clarity Urine pH Ur Specific [place] Urine Protein Urine Glucose (UA) Urine Ketones Urine Occult Blood Urine Nitrate Urine Bilirubin Urine Urobilinogen Ur Leukocyte Esterase Urine RBC Urine WBC Ur Squamous Epith Cells Urine Mucus Micro UA Comment Ur Microscopic Review Urine Culture Comments Pleural pH Pleural Spec [place] Pleural RBC 610324 H Pleural Nuc Cells 497 H Pleural Neutrophils 70 Pleural Lymphocytes 22 Pleural Monocytes 4 Pleural Eosinophils 4 Pleural Fluid Comment Pleural Total Protein Pleural Albumin Pleural LDH Pleural Glucose Pleural Amylase Microbiology 08/27/18 18:10 Blood - Peripheral Aerobic Blood Culture - Final No growth in 5 days 08/27/18 18:10 Blood - Peripheral Anaerobic Blood Culture - Final No growth in 5 days 08/27/18 16:15 Blood - Peripheral Aerobic Blood Culture - Final No growth in 5 days 08/27/18 16:15 Blood - Peripheral Anaerobic Blood Culture - Final No growth in 5 days 08/29/18 09:35 Fluid - Pleural fluid Gram Stain - Final 08/29/18 09:35 Fluid - Pleural fluid Body Fluid Culture - Final No growth in 72 hours (aerobically and anaerobically ) - Imaging Impressions Chest X-Ray 09/01/18 15:39 CONCLUSION: Small right apical pneumothorax and right pleural effusion noted with chest tube in place. Right basilar atelectasis and airspace disease and left upper lobe airspace disease. Assessment and Plan - Plan LOCULATED EFFUSION PLAN FOR DECORTICATION
[2018-09-02] MEDS: Ketorolac Inj 30 MG/ML (IVP) Vial IV.PUSH SCH ×2 (03:53→10:04)
[2018-09-02 05:28] LABS: Baso # (Auto) 0.2 th/mm3 (0.0-0.2); Baso % (Auto) 0.9 % (0.0-2.0); Eos % (Auto) 0.1 % (0.0-4.0); Hematocrit 33.3 % (35.0-46.0); Hemoglobin 11.2 gm/dL (11.6-15.3); Lymph # (Auto) 1.5 th/mm3 (1.0-4.8); Lymph % (Auto) 6.2 % (9.0-44.0); Mean Corpuscular HGB Conc 33.6 % (32.0-36.0); Mean Corpuscular Hemoglobin 30.1 pg (27.0-34.0); Mean Corpuscular Volume 89.6 fL (80.0-100.0); Mean Platelet Volume 7.6 fL (7.0-11.0); Mono # (Auto) 1.3 th/mm3 (0.0-0.9); Mono % (Auto) 5.4 % (0.0-8.0); Neut # (Auto) 20.6 th/mm3 (1.8-7.7); Neut % (Auto) 87.4 % (16.0-70.0); Platelet Count 701 th/mm3 (150-450); Red Blood Count 3.72 mil/mm3 (4.00-5.30); Red Cell Distribution Width 13.9 % (11.6-17.2); White Blood Count 23.6 th/mm3 (4.0-11.0)
[2018-09-02 05:58] LABS: Anion Gap 8 meq/L (5-15); Blood Urea Nitrogen 11 mg/dL (7-18); Calcium 8.8 mg/dL (8.5-10.1); Carbon Dioxide 29.8 meq/L (21.0-32.0); Chloride 104 meq/L (98-107); Glomerular Filtration Rate Greater Than 89 mL/min (>89); Glucose,Random 143 mg/dL (74-106); Potassium 3.5 meq/L (3.5-5.1); Sodium 142 meq/L (136-145)
[2018-09-02] MEDS: Fenofibrate 145 MG Tablet PO SCH (08:41)
[2018-09-02] MEDS: Liothyronine 5 MCG Tablet PO SCH (08:41)
[2018-09-02] MEDS: Benzonatate 100 MG Capsule PO SCH ×3 (08:41→17:43)
[2018-09-02] MEDS: Senna/Docusate Sodium 8.6/50 MG Tablet PO SCH ×2 (08:41→21:00)
[2018-09-02] MEDS ORDERED: Naloxone Inj 0.4 MG/ML Vial IV.PUSH PRN (10:05)
--- NOTE | 2018-09-02 10:06 | P.PNIM ---
Subjective Interval history: Patient says she is feeling all right, however still with right-sided chest pain. Would like morphine added for breakthrough pain. Denies any nausea or vomiting. Physical Exam Vital signs: Vital Signs 09/01/18 10:46 09/01/18 12:00 09/01/18 16:08 Temperature 98.2 F 98.0 F Pulse Rate 75 97 H Respiratory Rate 17 26 H Blood Pressure 128/77 120/86 Pulse Oximetry 93 L 93 L 09/01/18 16:15 09/01/18 16:30 09/01/18 16:45 Temperature Pulse Rate 98 H 86 88 Respiratory Rate 26 H 18 12 Blood Pressure 115/83 122/65 120/65 Pulse Oximetry 94 L 97 92 L 09/01/18 17:00 09/01/18 17:15 09/01/18 17:30 Temperature Pulse Rate 88 90 88 Respiratory Rate 12 20 24 Blood Pressure 119/66 128/74 126/66 Pulse Oximetry 92 L 92 L 93 L 09/01/18 18:00 09/01/18 19:00 09/01/18 19:15 Temperature 98.4 F Pulse Rate 88 90 91 H Respiratory Rate 16 14 14 Blood Pressure 123/66 133/83 138/93 H Pulse Oximetry 93 L 94 L 94 L 09/01/18 20:00 09/01/18 20:52 09/01/18 21:00 Temperature 98.7 F Pulse Rate 94 H 89 Respiratory Rate 18 Blood Pressure 121/60 Pulse Oximetry 94 L 93 L 09/01/18 22:00 09/01/18 23:00 09/02/18 00:00 Temperature 98.1 F Pulse Rate 82 73 68 Respiratory Rate 16 Blood Pressure 108/59 L Pulse Oximetry 94 L 09/02/18 01:00 09/02/18 02:00 09/02/18 03:00 Temperature Pulse Rate 68 77 76 Respiratory Rate Blood Pressure Pulse Oximetry 09/02/18 04:00 09/02/18 05:00 09/02/18 05:05 Temperature 98.4 F Pulse Rate 76 72 Respiratory Rate 16 18 Blood Pressure 124/72 Pulse Oximetry 95 09/02/18 06:00 09/02/18 07:00 09/02/18 08:00 Temperature 98.2 F Pulse Rate 76 74 68 Respiratory Rate 18 Blood Pressure 132/64 Pulse Oximetry 94 L 94 L 09/02/18 08:30 09/02/18 09:00 Temperature Pulse Rate 72 Respiratory Rate Blood Pressure Pulse Oximetry 94 L Intake & Output 09/01/18 09/02/18 09/02/18 18:59 06:59 18:59 Intake Total 1320 / 1320 1470 / 1470 Output Total 1560 / 1560 1275 / 1275 Balance -240 / -240 195 / 195 Weight 96.8 kg Intake: IV 100 / 100 300 / 300 Maxipime Inj 2,000 MG In NS Inj 100 / 100 200 / 200 100 ML @ 200 mls/hr IV.SIG Q8H [facility] Rx#:[id number] Ancef Inj 1,000 MG In NS Inj 100 / 100 100 ML @ 200 mls/hr IV.SIG Q8H [facility] Rx#:[id number] Oral 120 / 120 1170 / 1170 Anesthesia Amount 1100 / 1100 Output: Urine 750 / 750 Estimated Blood Loss 50 / 50 Urine Amount (Catheter) 1350 / 1350 425 / 425 Indwelling Urethral Catheter 1350 / 1350 425 / 425 Chest Tube Drainage 160 / 160 100 / 100 Right Pleural 100 / 100 Right Upper Anterior 160 / 160 Other: Date of Last Bowel Movement 08/30/18 08/30/18 # Bowel Movements 0 Narrative: GENERAL: Patient sitting up in bed. Appears comfortable. SKIN: Warm and dry. HEAD: Normocephalic. EYES: No scleral icterus. No injection or drainage. NECK: Supple, trachea midline. No JVD. CARDIOVASCULAR: Regular rate and rhythm without murmurs, gallops, or rubs. RESPIRATORY: Coarse breath sounds bilaterally. Chest tube in place with serosanguineous fluid. No accessory muscle use. no change GASTROINTESTINAL: Abdomen soft, non-tender, nondistended. MUSCULOSKELETAL: No cyanosis, or edema. BACK: Nontender without obvious deformity. No CVA tenderness. Urinary Catheter Management Indwelling Urethral Catheter: Cath placed during this visit: yes, but has since been removed by the nurse Reason for continuing: Not indwelling catheter Insertion date: 09/01/18 Insertion time: 14:30 Removal date: 09/01/18 Removal time: 18:55 Results Labs CBC & Chem 7: 09/02/18 04:09 09/02/18 04:09 Labs: Microbiology 09/01/18 15:22 Tissue - Other Gram Stain - Final 09/01/18 15:14 Fluid - Pleural fluid Gram Stain - Final 09/01/18 15:14 Fluid - Pleural fluid Fungal Smear - Final 09/01/18 15:14 Fluid - Pleural fluid Fungal Smear - Final 08/27/18 18:10 Blood - Peripheral Aerobic Blood Culture - Final No growth in 5 days 08/27/18 18:10 Blood - Peripheral Anaerobic Blood Culture - Final No growth in 5 days 08/27/18 16:15 Blood - Peripheral Aerobic Blood Culture - Final No growth in 5 days 08/27/18 16:15 Blood - Peripheral Anaerobic Blood Culture - Final No growth in 5 days 08/29/18 09:35 Fluid - Pleural fluid Gram Stain - Final 08/29/18 09:35 Fluid - Pleural fluid Body Fluid Culture - Final No growth in 72 hours (aerobically and anaerobically ) Imaging Imaging: Impressions Chest X-Ray 09/01/18 15:39 CONCLUSION: Small right apical pneumothorax and right pleural effusion noted with chest tube in place. Right basilar atelectasis and airspace disease and left upper lobe airspace disease. Assessment and Plan Plan 58-year-old white female admitted with shortness of breaths. Found to have loculated pleural effusion on the right. //Pneumonia/empyema/sepsis -Patient tachycardic, hypoxic with leukocytosis - hypoxia resolved -Chest CT significant for moderate to large loculated pleural effusion on the right -Status post chest tube insertion on the right, pleural cultures pending -Appreciate CT input -We will de-escalate antibiotics suggests cefepime and azithromycin for now, trend CBC -possible decortication planned, pulmonology consultation pending -norco and morphine Repeat chest x-ray shows chest tube in right place with resolution of loculated effusion suspected = 09/01 status post decortication by cardiothoracic surgery Today. Cytology pending. Continue cefepime. Pulmonology following. Appreciate assistance. Follow-up cytology. = 09/02. Continues with chest tube to suction. Appreciate cardiothoracic surgery assistance. Follow-up cytology will add morphine for breakthrough pain. //Hypertension/hyperlipidemia Continue home medications Diet as tolerated Progress Note: Quality VTE Deep Vein Thrombosis/Pulmonary Embolism Present on Admission: No
--- NOTE | 2018-09-02 10:49 | P.PNCV ---
- Note Subjective/Hospital Course: 58-year-old female with a past medical history significant for hypertension, hyperlipidemia and history of previous CVA presents to the emergency department for evaluation of fever/chills and productive cough for the past 2 weeks. The patient reports she has had a cough productive of green sputum that is occasionally blood-tinged. She complains of right inspiratory chest pain. She has had subjective fever/chills although did not take her temperature at home. She who was seen by her primary care provider and prescribed antibiotics and steroids without improvement. She denies any substernal chest pain. No abdominal pain. No nausea/vomiting/diarrhea. No focal neurologic deficits. 08/[address] chest noted moderate to large loculated right pleural effusion pt scheduled for Right VATS, possible thoracotomy , decortication in am 09/01 for surgery today Date of procedure: 09/01/18 Procedure: Right thoracoscopic exploration to drain loculated effusion, lysis of adhesions , pleural biopsies. Pleural fluid for cytology and cultures. Pleural fluid for labs. 09/02 no air leak in chest tube drained 160cc/ 12 hrs pt need to be OOB / ambulate consult PT Objective: Vital Signs - 24 hr 09/01/18 10:46 09/01/18 12:00 09/01/18 16:08 Temperature 98.2 F 98.0 F Pulse Rate 75 97 H Respiratory Rate 17 26 H Blood Pressure 128/77 120/86 Pulse Oximetry 93 L 93 L 09/01/18 16:15 09/01/18 16:30 09/01/18 16:45 Temperature Pulse Rate 98 H 86 88 Respiratory Rate 26 H 18 12 Blood Pressure 115/83 122/65 120/65 Pulse Oximetry 94 L 97 92 L 09/01/18 17:00 09/01/18 17:15 09/01/18 17:30 Temperature Pulse Rate 88 90 88 Respiratory Rate 12 20 24 Blood Pressure 119/66 128/74 126/66 Pulse Oximetry 92 L 92 L 93 L 09/01/18 18:00 09/01/18 19:00 09/01/18 19:15 Temperature 98.4 F Pulse Rate 88 90 91 H Respiratory Rate 16 14 14 Blood Pressure 123/66 133/83 138/93 H Pulse Oximetry 93 L 94 L 94 L 09/01/18 20:00 09/01/18 20:52 09/01/18 21:00 Temperature 98.7 F Pulse Rate 94 H 89 Respiratory Rate 18 Blood Pressure 121/60 Pulse Oximetry 94 L 93 L 09/01/18 22:00 09/01/18 23:00 09/02/18 00:00 Temperature 98.1 F Pulse Rate 82 73 68 Respiratory Rate 16 Blood Pressure 108/59 L Pulse Oximetry 94 L 09/02/18 01:00 09/02/18 02:00 09/02/18 03:00 Temperature Pulse Rate 68 77 76 Respiratory Rate Blood Pressure Pulse Oximetry 09/02/18 04:00 09/02/18 05:00 09/02/18 05:05 Temperature 98.4 F Pulse Rate 76 72 Respiratory Rate 16 18 Blood Pressure 124/72 Pulse Oximetry 95 09/02/18 06:00 09/02/18 07:00 09/02/18 08:00 Temperature 98.2 F Pulse Rate 76 74 68 Respiratory Rate 18 Blood Pressure 132/64 Pulse Oximetry 94 L 94 L 09/02/18 08:30 09/02/18 09:00 09/02/18 10:00 Temperature Pulse Rate 72 74 Respiratory Rate Blood Pressure Pulse Oximetry 94 L GENERAL: A&O x 3 SKIN: Warm and dry. incision intact to right posterior chest wall HEAD: Normocephalic. EYES: No scleral icterus. No injection or drainage. NECK: Supple, trachea midline. No JVD or lymphadenopathy. CARDIOVASCULAR: Regular rate and rhythm without murmurs, gallops, or rubs. RESPIRATORY: Breath sounds equal bilaterally. No accessory muscle use. few coarse breath sound on the right / chest tube to wall suction, no air leak GASTROINTESTINAL: Abdomen soft, non-tender, nondistended. MUSCULOSKELETAL: No cyanosis, or edema. BACK: Nontender without obvious deformity. No CVA tenderness. Labs: Laboratory Results - last 12 hr 09/02/18 09/02/18 04:09 04:09 WBC 23.6 H RBC 3.72 L Hgb 11.2 L Hct 33.3 L MCV 89.6 MCH 30.1 MCHC 33.6 RDW 13.9 Plt Count 701 H MPV 7.6 Neut % (Auto) 87.4 H Lymph % (Auto) 6.2 L [place] % (Auto) 5.4 Eos % (Auto) 0.1 Baso % (Auto) 0.9 Neut # (Auto) 20.6 H Lymph # (Auto) 1.5 [place] # (Auto) 1.3 H Eos # (Auto) 0.0 Baso # (Auto) 0.2 WBC Differential . Differential Comment Auto diff final Sodium 142 Potassium 3.5 Chloride 104 Carbon Dioxide 29.8 Anion Gap 8 BUN 11 Creatinine 0.62 Estimated GFR Greater than 89 Random Glucose 143 H Calcium 8.8 Result Diagrams: 09/02/18 04:09 09/02/18 04:09 Telemetry: NSR - Plan (1) S/P thoracotomy Plan: pulm toileting await cultures and path OOB ambulate pain control leave chest tube in (3) Pleural effusion on right Plan: for surgery today (4) Pneumonia (4) Pneumonia Qualifiers: Pneumonia type: due to unspecified organism Laterality: right Lung location : unspecified part of lung Qualified Code(s): J18.9 - Pneumonia, unspecified organism
[2018-09-02] MEDS: Morphine Inj 4 MG/ML Vial IV.PUSH PRN ×3 (11:52→20:58)
[2018-09-02] MEDS: Enoxaparin Inj 40 MG/0.4 ML Syringe SQ SCH (15:56)
--- NOTE | 2018-09-02 16:23 | XR ---
EXAM DATE: 09/02/2018 4:20 PM EST AGE/SEX: 58 years / Female INDICATIONS: Patient presents with shortness of breath, follow up pleural effusion. CLINICAL DATA: This is the patient's subsequent encounter. Patient reports that signs and symptoms h ave been present for 3 days and indicates a pain score of 4/10. MEDICAL/SURGICAL HISTORY: Hypertension. . [place] [facility] [place]. . FINDINGS: Right-sided chest tube is noted. A small right effusion is again seen. There is slight decreased atel ectasis at the right base. Slight improved aeration left upper lobe. Borderline cardiomegaly. CONCLUSION: Improved aeration. Electronically signed by: Brett Chery MD Board Certified Radiologist 09/02/2018 4:22 PM EST
[2018-09-02] MEDS: Montelukast 10 MG Tablet PO SCH (17:44)
[2018-09-02] MEDS: amLODIPine 10 MG Tablet PO SCH (20:56)
[2018-09-02] MEDS: traZODone 100 MG Tablet PO SCH (21:00)
--- NOTE | 2018-09-03 00:13 | P.PN ---
Subjective Interval history: alert no sob Physical Exam Vital signs: Vital Signs 09/02/18 01:00 09/02/18 02:00 09/02/18 03:00 Temperature Pulse Rate 68 77 76 Respiratory Rate Blood Pressure Pulse Oximetry 09/02/18 04:00 09/02/18 05:00 09/02/18 05:05 Temperature 98.4 F Pulse Rate 76 72 Respiratory Rate 16 18 Blood Pressure 124/72 Pulse Oximetry 95 09/02/18 06:00 09/02/18 07:00 09/02/18 08:00 Temperature 98.2 F Pulse Rate 76 74 68 Respiratory Rate 18 Blood Pressure 132/64 Pulse Oximetry 94 L 94 L 09/02/18 08:30 09/02/18 09:00 09/02/18 10:00 Temperature Pulse Rate 72 74 Respiratory Rate Blood Pressure Pulse Oximetry 94 L 09/02/18 11:00 09/02/18 12:00 09/02/18 13:00 Temperature 98.0 F Pulse Rate 72 74 74 Respiratory Rate 18 Blood Pressure 126/62 Pulse Oximetry 96 09/02/18 14:00 09/02/18 15:00 09/02/18 16:00 Temperature 98.0 F Pulse Rate 72 74 72 Respiratory Rate 18 Blood Pressure 138/64 Pulse Oximetry 95 09/02/18 17:00 09/02/18 18:00 09/02/18 19:00 Temperature 97.9 F Pulse Rate 74 70 80 Respiratory Rate 18 Blood Pressure 133/75 Pulse Oximetry 94 L 09/02/18 20:00 09/02/18 20:05 09/02/18 21:00 Temperature Pulse Rate 80 70 Respiratory Rate Blood Pressure Pulse Oximetry 92 L 09/02/18 22:00 09/02/18 23:00 Temperature 98 F Pulse Rate 66 73 Respiratory Rate 18 Blood Pressure 128/89 Pulse Oximetry 95 Intake & Output 09/02/18 09/02/18 09/03/18 06:59 18:59 06:59 Intake Total 1570 / 1570 1025 / 1025 Output Total 1275 / 1275 830 / 830 Balance 295 / 295 195 / 195 Weight 96.8 kg Intake: IV 400 / 400 Maxipime Inj 2,000 MG In NS Inj 200 / 200 100 ML @ 200 mls/hr IV.SIG Q8H [facility] Rx#:[id number] Ancef Inj 1,000 MG In NS Inj 200 / 200 100 ML @ 200 mls/hr IV.SIG Q8H [facility] Rx#:[id number] Oral 1170 / 1170 1025 / 1025 Output: Urine 750 / 750 800 / 800 Urine Amount (Catheter) 425 / 425 Indwelling Urethral Catheter 425 / 425 Chest Tube Drainage 100 / 100 30 / 30 Right Pleural 100 / 100 30 / 30 Other: Date of Last Bowel Movement 08/30/18 08/30/18 08/30/18 # Bowel Movements 0 0 - Routine HEENT Exam Head: Present: normocephalic - Urinary Catheter Management Indwelling Urethral Catheter Cath placed during this visit: yes, but has since been removed by the nurse Reason for continuing: Not indwelling catheter Insertion date: 09/01/18 Insertion time: 14:30 Removal date: 09/01/18 Removal time: 18:55 Results - Labs CBC & Chem 7: 09/02/18 04:09 09/02/18 04:09 Laboratory Results - last 24 hr 09/02/18 09/02/18 04:09 04:09 WBC 23.6 H RBC 3.72 L Hgb 11.2 L Hct 33.3 L MCV 89.6 MCH 30.1 MCHC 33.6 RDW 13.9 Plt Count 701 H MPV 7.6 Neut % (Auto) 87.4 H Lymph % (Auto) 6.2 L [place] % (Auto) 5.4 Eos % (Auto) 0.1 Baso % (Auto) 0.9 Neut # (Auto) 20.6 H Lymph # (Auto) 1.5 [place] # (Auto) 1.3 H Eos # (Auto) 0.0 Baso # (Auto) 0.2 WBC Differential . Differential Comment Auto diff final Sodium 142 Potassium 3.5 Chloride 104 Carbon Dioxide 29.8 Anion Gap 8 BUN 11 Creatinine 0.62 Estimated GFR Greater than 89 Random Glucose 143 H Calcium 8.8 Microbiology 09/01/18 15:22 Tissue - Other Gram Stain - Final 09/01/18 15:22 Tissue - Other Wound Culture - Preliminary No growth in 24 hours 09/01/18 15:14 Fluid - Pleural fluid Gram Stain - Final 09/01/18 15:14 Fluid - Pleural fluid Wound Culture - Preliminary No growth in 24 hours 09/01/18 15:14 Fluid - Pleural fluid Fungal Smear - Final 09/01/18 15:14 Fluid - Pleural fluid Fungal Smear - Final - Imaging Impressions Chest X-Ray 09/02/18 15:39 CONCLUSION: Improved aeration. Assessment and Plan - Plan LOCULATED EFFUSION post decortication chest tube in place PLAN remove tube when possible pulm toilet
[2018-09-03] MEDS: Morphine Inj 4 MG/ML Vial IV.PUSH PRN ×3 (06:35→20:15)
[2018-09-03] MEDS: Fenofibrate 145 MG Tablet PO SCH (08:00)
[2018-09-03] MEDS: Benzonatate 100 MG Capsule PO SCH ×3 (08:00→18:14)
[2018-09-03] MEDS: Senna/Docusate Sodium 8.6/50 MG Tablet PO SCH ×2 (08:00→20:16)
--- NOTE | 2018-09-03 14:01 | P.PNCV ---
- Note CVT: Post Op Day #: 2 Subjective/Hospital Course: 58-year-old female with a past medical history significant for hypertension, hyperlipidemia and history of previous CVA presents to the emergency department for evaluation of fever/chills and productive cough for the past 2 weeks. The patient reports she has had a cough productive of green sputum that is occasionally blood-tinged. She complains of right inspiratory chest pain. She has had subjective fever/chills although did not take her temperature at home. She who was seen by her primary care provider and prescribed antibiotics and steroids without improvement. She denies any substernal chest pain. No abdominal pain. No nausea/vomiting/diarrhea. No focal neurologic deficits. 08/[address] chest noted moderate to large loculated right pleural effusion pt scheduled for Right VATS, possible thoracotomy , decortication in am 09/01 for surgery today Date of procedure: 09/01/18 Procedure: Right thoracoscopic exploration to drain loculated effusion, lysis of adhesions , pleural biopsies. Pleural fluid for cytology and cultures. Pleural fluid for labs. 09/02 no air leak in chest tube drained 160cc/ 12 hrs pt need to be OOB / ambulate consult PT 09/03/18 Doing well, no complaints Objective: Vital Signs - 24 hr 09/02/18 14:00 09/02/18 15:00 09/02/18 16:00 Temperature 98.0 F Pulse Rate 72 74 72 Respiratory Rate 18 Blood Pressure 138/64 Pulse Oximetry 95 09/02/18 17:00 09/02/18 18:00 09/02/18 19:00 Temperature 97.9 F Pulse Rate 74 70 80 Respiratory Rate 18 Blood Pressure 133/75 Pulse Oximetry 94 L 09/02/18 20:00 09/02/18 20:05 09/02/18 21:00 Temperature Pulse Rate 80 70 Respiratory Rate Blood Pressure Pulse Oximetry 92 L 09/02/18 22:00 09/02/18 23:00 09/03/18 00:00 Temperature 98 F Pulse Rate 66 73 69 Respiratory Rate 18 Blood Pressure 128/89 Pulse Oximetry 95 09/03/18 01:00 09/03/18 02:00 09/03/18 03:00 Temperature 97.8 F Pulse Rate 72 74 81 Respiratory Rate 18 Blood Pressure 137/66 Pulse Oximetry 96 09/03/18 04:00 09/03/18 05:00 09/03/18 06:00 Temperature Pulse Rate 74 76 72 Respiratory Rate Blood Pressure Pulse Oximetry 09/03/18 07:00 09/03/18 07:51 09/03/18 07:54 Temperature 99.2 F Pulse Rate 71 73 Respiratory Rate 14 14 Blood Pressure 141/67 H Pulse Oximetry 94 L 09/03/18 08:09 09/03/18 08:44 Temperature Pulse Rate Respiratory Rate Blood Pressure Pulse Oximetry 94 L 94 L Result Diagrams: 09/02/18 04:09 09/02/18 04:09 Imaging: Chest CTA 08/27/18 18:02 CONCLUSION: 1. No definitive CT evidence for pulmonary artery embolism although evaluation of the right pulmonary artery branches is limited, as above. 2. Moderate to large loculated right-sided pleural effusion demonstrating indeterminate density. Differential considerations include empyema in the appropriate clinical setting. 3. Airspace consolidation in the right lung with associated volume loss likely reflects compressive atelectasis. Differential considerations include right lower lobe pneumonia and aspiration. 4. Mild nonspecific mediastinal and right hilar adenopathy, likely reactive/ infectious in etiology. Chest Tube Insertion 08/28/18 00:00 CONCLUSION: 1. Uncomplicated chest tube placement as above. Chest X-Ray 09/02/18 15:39 CONCLUSION: Improved aeration. Cardiovascular: RRR Pulmonary: CTA CT: no air leak, 40ml drainage - Plan (1) S/P thoracotomy Plan: pulm toileting await cultures and path OOB ambulate pain control leave chest tube in (3) Pleural effusion on right Plan: for surgery today (4) Pneumonia Chest tube to water seal CXR in AM Plan to remove chest tube in AM (4) Pneumonia Qualifiers: Pneumonia type: due to unspecified organism Laterality: right Lung location : unspecified part of lung Qualified Code(s): J18.9 - Pneumonia, unspecified organism
--- NOTE | 2018-09-03 15:27 | P.PNIM ---
Subjective Interval history: Follow up for empyema. Patient is doing well. Sitting in her chair. No fever, chills. Chest tube in place on the right side. She complains of pain with movements. Physical Exam Vital signs: Vital Signs 09/02/18 16:00 09/02/18 17:00 09/02/18 18:00 Temperature Pulse Rate 72 74 70 Respiratory Rate Blood Pressure Pulse Oximetry 09/02/18 19:00 09/02/18 20:00 09/02/18 20:05 Temperature 97.9 F Pulse Rate 80 80 Respiratory Rate 18 Blood Pressure 133/75 Pulse Oximetry 94 L 92 L 09/02/18 21:00 09/02/18 22:00 09/02/18 23:00 Temperature 98 F Pulse Rate 70 66 73 Respiratory Rate 18 Blood Pressure 128/89 Pulse Oximetry 95 09/03/18 00:00 09/03/18 01:00 09/03/18 02:00 Temperature Pulse Rate 69 72 74 Respiratory Rate Blood Pressure Pulse Oximetry 09/03/18 03:00 09/03/18 04:00 09/03/18 05:00 Temperature 97.8 F Pulse Rate 81 74 76 Respiratory Rate 18 Blood Pressure 137/66 Pulse Oximetry 96 09/03/18 06:00 09/03/18 07:00 09/03/18 07:51 Temperature Pulse Rate 72 68 Respiratory Rate 14 Blood Pressure Pulse Oximetry 09/03/18 07:54 09/03/18 08:09 09/03/18 08:44 Temperature 99.2 F Pulse Rate 73 Respiratory Rate 14 Blood Pressure 141/67 H Pulse Oximetry 94 L 94 L 94 L 09/03/18 11:00 09/03/18 12:00 09/03/18 13:00 Temperature 98.5 F Pulse Rate 73 82 84 Respiratory Rate 12 Blood Pressure 131/72 Pulse Oximetry 93 L 09/03/18 14:00 09/03/18 14:36 Temperature Pulse Rate 66 78 Respiratory Rate Blood Pressure Pulse Oximetry Intake & Output 09/02/18 09/03/18 09/03/18 18:59 06:59 18:59 Intake Total 1025 / 1025 1040 / 1040 Output Total 830 / 830 1015 / 1015 Balance 195 / 195 25 / 25 Weight 92 kg Intake: IV 200 / 200 Maxipime Inj 2,000 MG In NS Inj 200 / 200 100 ML @ 200 mls/hr IV.SIG Q8H [facility] Rx#:[id number] Oral 1025 / 1025 840 / 840 Output: Urine 800 / 800 1000 / 1000 Chest Tube Drainage Right Pleural Other: Date of Last Bowel Movement 08/30/18 08/30/18 # Bowel Movements 0 1 Narrative: GENERAL: Patient sitting up in bed. Appears comfortable. SKIN: Warm and dry. HEAD: Normocephalic. EYES: No scleral icterus. No injection or drainage. NECK: Supple, trachea midline. No JVD. CARDIOVASCULAR: Regular rate and rhythm without murmurs, gallops, or rubs. RESPIRATORY: Coarse breath sounds bilaterally. Chest tube in place with serosanguineous fluid. No accessory muscle use. GASTROINTESTINAL: Abdomen soft, non-tender, nondistended. MUSCULOSKELETAL: No cyanosis, or edema. BACK: Nontender without obvious deformity. No CVA tenderness. Urinary Catheter Management Indwelling Urethral Catheter: Cath placed during this visit: yes, but has since been removed by the nurse Reason for continuing: Not indwelling catheter Insertion date: 09/01/18 Insertion time: 14:30 Removal date: 09/01/18 Removal time: 18:55 Results Labs CBC & Chem 7: 09/02/18 04:09 09/02/18 04:09 Labs: Microbiology 09/01/18 15:22 Tissue - Other Gram Stain - Final 09/01/18 15:22 Tissue - Other Wound Culture - Preliminary No growth in 48 hours 09/01/18 15:14 Fluid - Pleural fluid Gram Stain - Final 09/01/18 15:14 Fluid - Pleural fluid Wound Culture - Preliminary No growth in 48 hours 09/01/18 15:22 Fluid - Pleural fluid Acid Fast Bacilli Smear - Final No acid fast bacilli seen 09/01/18 15:22 Fluid - Pleural fluid Acid Fast Bacilli Smear - Final No acid fast bacilli seen Imaging Imaging: Impressions Chest X-Ray 09/02/18 15:39 CONCLUSION: Improved aeration. Assessment and Plan (1) S/P thoracotomy: Code(s): Z98.890 - Other specified postprocedural states Status: Acute (2) Loculated pleural effusion: Code(s): J90 - Pleural effusion, not elsewhere classified Status: Acute (3) Pleural effusion on right: Code(s): J90 - Pleural effusion, not elsewhere classified Status: Acute (4) Pneumonia: Code(s): J18.9 - Pneumonia, unspecified organism Status: Acute Plan Ms. Mcdonald is a 58-year-old white female admitted with shortness of breaths. Found to have loculated pleural effusion on the right. Sepsis due to pneumonia Community acquired pneumonia Parapneumonic empyema -Patient presented with tachycardic, hypoxic with leukocytosis - hypoxia resolved -Chest CT significant for moderate to large loculated pleural effusion on the right -Status post chest tube insertion on the right, Cultures negative so far. -Appreciate CT input. -CBC shows WBC 16.5 --> 23.6. Will obtain CBC in the AM. -Currently on cefepime and azithromycin for now. However, anaerobes are not covered with this regimen. -Will switch abx to Levaquin and Flagyl to cover typical, atypical and anaerobes. -s/p Right thoracoscopic exploration to drain loculated effusion, lysis of adhesions, pleural biopsies on 09/01/2018. Cytology pending. -[place], morphine for pain. Repeat chest x-ray shows chest tube in right place with resolution of loculated effusion suspected Hypertension hyperlipidemia Amlodipine 10mg and Lipitor 80mg Full code. Lovenox. Progress Note: Quality VTE Deep Vein Thrombosis/Pulmonary Embolism Present on Admission: No _ (1) Pneumonia Qualifiers: Aspiration pneumonia type: Laterality: right Lung location: unspecified part of lung Pneumonia type: due to unspecified organism Qualified Code(s): J18.9 - Pneumonia, unspecified organism
[2018-09-03] MEDS: Liothyronine 5 MCG Tablet PO SCH (16:04)
[2018-09-03] MEDS: Enoxaparin Inj 40 MG/0.4 ML Syringe SQ SCH (16:05)
[2018-09-03] MEDS: Montelukast 10 MG Tablet PO SCH (18:14)
[2018-09-03] MEDS: amLODIPine 10 MG Tablet PO SCH (20:16)
[2018-09-03] MEDS: traZODone 100 MG Tablet PO SCH (20:16)
[2018-09-04] MEDS: metroNIDAZOLE 500 MG Tablet PO SCH ×3 (05:21→21:12)
[2018-09-04 07:51] LABS: Baso # (Auto) 0.1 th/mm3 (0.0-0.2); Baso % (Auto) 1.1 % (0.0-2.0); Eos # (Auto) 0.7 th/mm3 (0.0-0.4); Eos % (Auto) 5.1 % (0.0-4.0); Hematocrit 31.1 % (35.0-46.0); Hemoglobin 10.4 gm/dL (11.6-15.3); Lymph % (Auto) 14.8 % (9.0-44.0); Mean Corpuscular HGB Conc 33.6 % (32.0-36.0); Mean Corpuscular Hemoglobin 29.9 pg (27.0-34.0); Mean Corpuscular Volume 89.1 fL (80.0-100.0); Mean Platelet Volume 7.8 fL (7.0-11.0); Mono # (Auto) 1.3 th/mm3 (0.0-0.9); Mono % (Auto) 9.7 % (0.0-8.0); Neut # (Auto) 9.5 th/mm3 (1.8-7.7); Neut % (Auto) 69.3 % (16.0-70.0); Platelet Count 580 th/mm3 (150-450); Red Blood Count 3.49 mil/mm3 (4.00-5.30); White Blood Count 13.8 th/mm3 (4.0-11.0)
[2018-09-04] MEDS: Morphine Inj 4 MG/ML Vial IV.PUSH PRN (08:35)
[2018-09-04] MEDS: Fenofibrate 145 MG Tablet PO SCH (09:23)
[2018-09-04] MEDS: Senna/Docusate Sodium 8.6/50 MG Tablet PO SCH ×2 (09:23→21:12)
[2018-09-04] MEDS: Benzonatate 100 MG Capsule PO SCH ×3 (09:23→17:51)
[2018-09-04] MEDS: levoFLOXacin 750 MG Tablet PO SCH (09:23)
[2018-09-04] MEDS: Liothyronine 5 MCG Tablet PO SCH (09:24)
--- NOTE | 2018-09-04 10:58 | XR ---
EXAM DATE: 09/04/2018 10:49 AM EST AGE/SEX: 58 years / Female INDICATIONS: . pleural effusion CLINICAL DATA: This is the patient's initial encounter. Patient reports that signs and symptoms have been present for 4 - 6 days and indicates a pain score of 0/10. MEDICAL/SURGICAL HISTORY: Hypertension. Stroke. None. [place] [facility] [place]. . FINDINGS: Large bore chest tube in place on the right with increasing consolidative changes and fluid on the ri ght. Mild interstitial edema. Minimal cardiomegaly No significant fluid on the left. CONCLUSION: Increasing consolidative changes and fluid on the right in spite of chest tube. Electronically signed by: Damian Dillon MD Board Certified Radiologist 09/04/2018 10:56 AM EST
--- NOTE | 2018-09-04 11:52 | P.PNCV ---
- Note CVT: Post Op Day #: 3 Subjective/Hospital Course: 58-year-old female with a past medical history significant for hypertension, hyperlipidemia and history of previous CVA presents to the emergency department for evaluation of fever/chills and productive cough for the past 2 weeks. The patient reports she has had a cough productive of green sputum that is occasionally blood-tinged. She complains of right inspiratory chest pain. She has had subjective fever/chills although did not take her temperature at home. She who was seen by her primary care provider and prescribed antibiotics and steroids without improvement. She denies any substernal chest pain. No abdominal pain. No nausea/vomiting/diarrhea. No focal neurologic deficits. 08/[address] chest noted moderate to large loculated right pleural effusion pt scheduled for Right VATS, possible thoracotomy , decortication in am 09/01 for surgery today Date of procedure: 09/01/18 Procedure: Right thoracoscopic exploration to drain loculated effusion, lysis of adhesions , pleural biopsies. Pleural fluid for cytology and cultures. Pleural fluid for labs. 09/02 no air leak in chest tube drained 160cc/ 12 hrs pt need to be OOB / ambulate consult PT 09/03/18 Doing well, no complaints 09/04/18 Doing well, no complaints. Afebrile Objective: Vital Signs - 24 hr 09/03/18 12:00 09/03/18 13:00 09/03/18 14:00 Temperature Pulse Rate 82 84 66 Respiratory Rate Blood Pressure Pulse Oximetry 09/03/18 14:36 09/03/18 15:00 09/03/18 16:00 Temperature Pulse Rate 78 84 76 Respiratory Rate Blood Pressure Pulse Oximetry 09/03/18 16:55 09/03/18 17:00 09/03/18 18:00 Temperature 98.9 F Pulse Rate 71 68 82 Respiratory Rate 14 Blood Pressure 129/60 Pulse Oximetry 09/03/18 19:00 09/03/18 20:00 09/03/18 20:50 Temperature 99.3 F Pulse Rate 71 70 Respiratory Rate 16 16 Blood Pressure 133/69 Pulse Oximetry 94 L 94 L 09/03/18 21:00 09/03/18 22:00 09/03/18 23:00 Temperature 100.2 F H Pulse Rate 67 66 71 Respiratory Rate 16 Blood Pressure 113/62 Pulse Oximetry 94 L 09/04/18 00:00 09/04/18 01:00 09/04/18 02:00 Temperature Pulse Rate 64 61 63 Respiratory Rate Blood Pressure Pulse Oximetry 09/04/18 03:00 09/04/18 03:59 09/04/18 04:56 Temperature 100.2 F H Pulse Rate 64 68 62 Respiratory Rate 16 Blood Pressure 113/62 Pulse Oximetry 94 L 09/04/18 05:51 09/04/18 07:00 09/04/18 08:00 Temperature 98.9 F Pulse Rate 65 74 65 Respiratory Rate 18 Blood Pressure 123/63 Pulse Oximetry 95 94 L 09/04/18 09:00 09/04/18 10:00 Temperature Pulse Rate 63 64 Respiratory Rate Blood Pressure Pulse Oximetry Labs: Laboratory Results - last 12 hr 09/04/18 06:43 WBC 13.8 H RBC 3.49 L Hgb 10.4 L Hct 31.1 L MCV 89.1 MCH 29.9 MCHC 33.6 RDW 14.0 Plt Count 580 H MPV 7.8 Neut % (Auto) 69.3 Lymph % (Auto) 14.8 [place] % (Auto) 9.7 H Eos % (Auto) 5.1 H Baso % (Auto) 1.1 Neut # (Auto) 9.5 H Lymph # (Auto) 2.0 [place] # (Auto) 1.3 H Eos # (Auto) 0.7 H Baso # (Auto) 0.1 WBC Differential . Differential Comment Auto diff final Result Diagrams: 09/04/18 06:43 09/02/18 04:09 Imaging: Chest CTA 08/27/18 18:02 CONCLUSION: 1. No definitive CT evidence for pulmonary artery embolism although evaluation of the right pulmonary artery branches is limited, as above. 2. Moderate to large loculated right-sided pleural effusion demonstrating indeterminate density. Differential considerations include empyema in the appropriate clinical setting. 3. Airspace consolidation in the right lung with associated volume loss likely reflects compressive atelectasis. Differential considerations include right lower lobe pneumonia and aspiration. 4. Mild nonspecific mediastinal and right hilar adenopathy, likely reactive/ infectious in etiology. Chest Tube Insertion 08/28/18 00:00 CONCLUSION: 1. Uncomplicated chest tube placement as above. Chest X-Ray 09/04/18 06:00 CONCLUSION: Increasing consolidative changes and fluid on the right in spite of chest tube. Cardiovascular: RRR Pulmonary: Decreased BS on right Incision: dry and intact CT: 10ml/24 hrs - Plan (1) S/P thoracotomy Plan: pulm toileting await cultures and path OOB ambulate pain control leave chest tube in (3) Pleural effusion on right Plan: for surgery today (4) Pneumonia Patient continues to have small amount of loculated fluid on right. Clinically , she is improving, so I would not recommend further intervention. Will see her PRN. Chest tube removed. (4) Pneumonia Qualifiers: Pneumonia type: due to unspecified organism Laterality: right Lung location : unspecified part of lung Qualified Code(s): J18.9 - Pneumonia, unspecified organism
[2018-09-04] MEDS: Enoxaparin Inj 40 MG/0.4 ML Syringe SQ SCH (15:48)
--- NOTE | 2018-09-04 17:01 | P.PNIM ---
Subjective Interval history: Says that right sided chest pain and breathing are improving. Denies any nausea or vomiting. Says she is feeling warm and would like the AC turn down Physical Exam Vital signs: Vital Signs 09/03/18 17:00 09/03/18 18:00 09/03/18 19:00 Temperature 99.3 F Pulse Rate 68 82 71 Respiratory Rate 16 Blood Pressure 133/69 Pulse Oximetry 94 L 09/03/18 20:00 09/03/18 20:50 09/03/18 21:00 Temperature Pulse Rate 70 67 Respiratory Rate 16 Blood Pressure Pulse Oximetry 94 L 09/03/18 22:00 09/03/18 23:00 09/04/18 00:00 Temperature 100.2 F H Pulse Rate 66 71 64 Respiratory Rate 16 Blood Pressure 113/62 Pulse Oximetry 94 L 09/04/18 01:00 09/04/18 02:00 09/04/18 03:00 Temperature 100.2 F H Pulse Rate 61 63 64 Respiratory Rate 16 Blood Pressure 113/62 Pulse Oximetry 94 L 09/04/18 03:59 09/04/18 04:56 09/04/18 05:51 Temperature Pulse Rate 68 62 65 Respiratory Rate Blood Pressure Pulse Oximetry 09/04/18 07:00 09/04/18 08:00 09/04/18 09:00 Temperature 98.9 F Pulse Rate 74 65 63 Respiratory Rate 18 Blood Pressure 123/63 Pulse Oximetry 95 94 L 09/04/18 10:00 09/04/18 11:00 09/04/18 12:00 Temperature 98.8 F Pulse Rate 64 78 68 Respiratory Rate 18 Blood Pressure 114/68 Pulse Oximetry 94 L 09/04/18 13:00 09/04/18 14:00 09/04/18 15:00 Temperature 98.9 F Pulse Rate 66 64 78 Respiratory Rate 18 Blood Pressure 116/72 Pulse Oximetry 94 L 09/04/18 16:00 Temperature Pulse Rate 72 Respiratory Rate Blood Pressure Pulse Oximetry Intake & Output 09/03/18 09/04/18 09/04/18 18:59 06:59 18:59 Intake Total 700 / 700 580 / 580 Output Total 800 / 800 910 / 910 Balance -100 / -100 -330 / -330 Weight 94 kg Intake: IV 100 / 100 100 / 100 Maxipime Inj 2,000 MG In NS Inj 100 / 100 100 / 100 100 ML @ 200 mls/hr IV.SIG Q8H [facility] Rx#:[id number] Oral 600 / 600 480 / 480 Output: Urine 800 / 800 900 / 900 Chest Tube Drainage Right Pleural Narrative: GENERAL: Patient sitting up in bed. Appears comfortable. SKIN: Warm and dry. HEAD: Normocephalic. EYES: No scleral icterus. No injection or drainage. NECK: Supple, trachea midline. No JVD. CARDIOVASCULAR: Regular rate and rhythm without murmurs, gallops, or rubs. RESPIRATORY: Coarse breath sounds bilaterally. No accessory muscle use. GASTROINTESTINAL: Abdomen soft, non-tender, nondistended. MUSCULOSKELETAL: No cyanosis, or edema. BACK: Nontender without obvious deformity. No CVA tenderness. Urinary Catheter Management Indwelling Urethral Catheter: Cath placed during this visit: yes, but has since been removed by the nurse Reason for continuing: Not indwelling catheter Insertion date: 09/01/18 Insertion time: 14:30 Removal date: 09/01/18 Removal time: 18:55 Results Labs CBC & Chem 7: 09/04/18 06:43 09/02/18 04:09 Labs: Microbiology 09/01/18 15:22 Tissue - Other Gram Stain - Final 09/01/18 15:22 Tissue - Other Wound Culture - Final No growth in 72 hours (aerobically and anaerobically ) 09/01/18 15:14 Fluid - Pleural fluid Gram Stain - Final 09/01/18 15:14 Fluid - Pleural fluid Wound Culture - Final No growth in 72 hours (aerobically and anaerobically ) 09/01/18 15:22 Fluid - Pleural fluid Acid Fast Bacilli Smear - Final No acid fast bacilli seen 09/01/18 15:22 Fluid - Pleural fluid Acid Fast Bacilli Smear - Final No acid fast bacilli seen Imaging Imaging: Impressions Chest X-Ray 09/04/18 06:00 CONCLUSION: Increasing consolidative changes and fluid on the right in spite of chest tube. Assessment and Plan (1) S/P thoracotomy: Code(s): Z98.890 - Other specified postprocedural states Status: Acute (2) Loculated pleural effusion: Code(s): J90 - Pleural effusion, not elsewhere classified Status: Acute (3) Pleural effusion on right: Code(s): J90 - Pleural effusion, not elsewhere classified Status: Acute (4) Pneumonia: Code(s): J18.9 - Pneumonia, unspecified organism Status: Acute Plan 58-year-old white female admitted with shortness of breaths. Found to have loculated pleural effusion on the right. //Pneumonia/empyema/sepsis -Patient tachycardic, hypoxic with leukocytosis - hypoxia resolved -Chest CT significant for moderate to large loculated pleural effusion on the right -Status post chest tube insertion on the right, pleural cultures pending -Appreciate CT input -We will de-escalate antibiotics suggests cefepime and azithromycin for now, trend CBC -possible decortication planned, pulmonology consultation pending -norco and morphine Repeat chest x-ray shows chest tube in right place with resolution of loculated effusion suspected = 09/01 status post decortication by cardiothoracic surgery Today. Cytology pending. Continue cefepime. Pulmonology following. Appreciate assistance. Follow-up cytology. = 09/02. Continues with chest tube to suction. Appreciate cardiothoracic surgery assistance. Follow-up cytology will add morphine for breakthrough pain. = 09/04 will consult infectious disease. Culture negative empyema. //Hypertension/hyperlipidemia Continue home medications Diet as tolerated Progress Note: Quality VTE Deep Vein Thrombosis/Pulmonary Embolism Present on Admission: No _ (1) Pneumonia Qualifiers: Aspiration pneumonia type: Laterality: right Lung location: unspecified part of lung Pneumonia type: due to unspecified organism Qualified Code(s): J18.9 - Pneumonia, unspecified organism
[2018-09-04] MEDS: Montelukast 10 MG Tablet PO SCH (17:51)
--- NOTE | 2018-09-04 18:38 | P.PN ---
Subjective Interval history: ALERT UP IN CHAIR CT REMOVED NO SOB Physical Exam Vital signs: Vital Signs 09/03/18 19:00 09/03/18 20:00 09/03/18 20:50 Temperature 99.3 F Pulse Rate 71 70 Respiratory Rate 16 16 Blood Pressure 133/69 Pulse Oximetry 94 L 94 L 09/03/18 21:00 09/03/18 22:00 09/03/18 23:00 Temperature 100.2 F H Pulse Rate 67 66 71 Respiratory Rate 16 Blood Pressure 113/62 Pulse Oximetry 94 L 09/04/18 00:00 09/04/18 01:00 09/04/18 02:00 Temperature Pulse Rate 64 61 63 Respiratory Rate Blood Pressure Pulse Oximetry 09/04/18 03:00 09/04/18 03:59 09/04/18 04:56 Temperature 100.2 F H Pulse Rate 64 68 62 Respiratory Rate 16 Blood Pressure 113/62 Pulse Oximetry 94 L 09/04/18 05:51 09/04/18 07:00 09/04/18 08:00 Temperature 98.9 F Pulse Rate 65 74 65 Respiratory Rate 18 Blood Pressure 123/63 Pulse Oximetry 95 94 L 09/04/18 09:00 09/04/18 10:00 09/04/18 11:00 Temperature 98.8 F Pulse Rate 63 64 78 Respiratory Rate 18 Blood Pressure 114/68 Pulse Oximetry 94 L 09/04/18 12:00 09/04/18 13:00 09/04/18 14:00 Temperature Pulse Rate 68 66 64 Respiratory Rate Blood Pressure Pulse Oximetry 09/04/18 15:00 09/04/18 16:00 09/04/18 17:00 Temperature 98.9 F Pulse Rate 78 72 76 Respiratory Rate 18 Blood Pressure 116/72 Pulse Oximetry 94 L 09/04/18 18:00 Temperature Pulse Rate 74 Respiratory Rate Blood Pressure Pulse Oximetry Intake & Output 09/03/18 09/04/18 09/04/18 18:59 06:59 18:59 Intake Total 700 / 700 580 / 580 975 / 975 Output Total 800 / 800 910 / 910 800 / 800 Balance -100 / -100 -330 / -330 175 / 175 Weight 94 kg Intake: IV 100 / 100 100 / 100 Maxipime Inj 2,000 MG In NS Inj 100 / 100 100 / 100 100 ML @ 200 mls/hr IV.SIG Q8H [facility] Rx#:[id number] Oral 600 / 600 480 / 480 975 / 975 Output: Urine 800 / 800 900 / 900 800 / 800 Chest Tube Drainage Right Pleural Other: # Bowel Movements 0 - Constitutional no acute distress - Routine HEENT Exam Head: Present: normocephalic Eye: Present: EOMI ENT: Present: mucous membranes moist - Routine Cardiovascular Exam Present: RRR, S1, S2 - Routine Abdominal Exam Present: soft, normoactive bowel sounds - Routine Neurological Exam Present: alert, oriented X3 - Urinary Catheter Management Indwelling Urethral Catheter Cath placed during this visit: yes, but has since been removed by the nurse Reason for continuing: Not indwelling catheter Insertion date: 09/01/18 Insertion time: 14:30 Removal date: 09/01/18 Removal time: 18:55 Results - Labs CBC & Chem 7: 09/04/18 06:43 09/02/18 04:09 Laboratory Results - last 24 hr 09/04/18 06:43 WBC 13.8 H RBC 3.49 L Hgb 10.4 L Hct 31.1 L MCV 89.1 MCH 29.9 MCHC 33.6 RDW 14.0 Plt Count 580 H MPV 7.8 Neut % (Auto) 69.3 Lymph % (Auto) 14.8 [place] % (Auto) 9.7 H Eos % (Auto) 5.1 H Baso % (Auto) 1.1 Neut # (Auto) 9.5 H Lymph # (Auto) 2.0 [place] # (Auto) 1.3 H Eos # (Auto) 0.7 H Baso # (Auto) 0.1 WBC Differential . Differential Comment Auto diff final Microbiology 09/01/18 15:22 Tissue - Other Gram Stain - Final 09/01/18 15:22 Tissue - Other Wound Culture - Final No growth in 72 hours (aerobically and anaerobically ) 09/01/18 15:14 Fluid - Pleural fluid Gram Stain - Final 09/01/18 15:14 Fluid - Pleural fluid Wound Culture - Final No growth in 72 hours (aerobically and anaerobically ) - Imaging Impressions Chest X-Ray 09/04/18 06:00 CONCLUSION: Increasing consolidative changes and fluid on the right in spite of chest tube. Assessment and Plan - Plan LOCULATED EFFUSION post decortication chest tube REMOVED PLAN INCREASE ACTIVITY pulm toilet
--- NOTE | 2018-09-04 19:12 | P.CONID ---
History of Present Illness Service: ID Consult date: 09/04/18 Requesting Physician: Michael Ann Reason for Consult: empyema culture negative Primary Care Provider: UNKNOWN Chief Complaint: Cough, dyspnea, malaise History of Present Illness: 58 yo female with h/o tobacco abuse, just recently quit presented on 08/27 with 2-3 weeks of R side chest pain, mostly pleuritic, malaise , cough productive with purulent sputum She was prescribed oral abx but she did not take them She had CXR done at [facility] and it showed fluid collection On 09/01/18 pt underwent Right thoracoscopic exploration to drain loculated effusion, lysis of adhesions, pleural biopsies by Dr Ashlee Baintures were negative Path with ACUTE INFLAMMATORY EXUDATE AND FIBRIN. On presentation her WBC was 31 K , now it dropped to [address] is out She feels better SHe is on levaquine and flagyl Review of Systems All other systems reviewed negative except as stated in HPI PMFSH - History History Provided By: Patient - Medical History Medical History: Medical History (Last Reviewed 09/04/18 @ 18:59 by Tsering Franco MD) Hyperlipidemia Brain aneurysm Hypertension Stroke - Surgical History Surgical History: Surgical History (Last Reviewed 09/04/18 @ 18:59 by Tsering Franco MD) History of appendectomy - Family History Family History: Family History (Last Reviewed 09/04/18 @ 18:59 by Tsering Franco MD) Other Diabetes mellitus - Social History I have reviewed the patient's Social History: Yes - Tobacco History Second Hand Smoke Exposure: Yes Tobacco Use In Past 30 Days: Yes ("i think i snuck one") Smoking Status: Former smoker Tobacco Type: Cigarettes - Alcohol History How Often Do You Have a Drink Containing Alcohol: Monthly or less - Substance Use History Substance History: No History of Abuse - Substance Use Type Marijuana Status: Active Route Used: Inhalation Frequency: none the last two weeks. but usually daily or every other day Reason for Use: Calm Down - Travel History Recent Travel in the [place] Within the Last 8 Weeks: No Recent Travel Out of the Country Within the Last 8 Weeks: No - Immunization History Tetanus Immunization: Unsure Medications and Allergies Active Medications: Active Medications Hydrocodone Bitart/Acetaminophen ([place] 7.5/325) 1 tab PO Q6H PRN PRN Reason: Acute Pain Last Admin: 09/04/18 16:18 Dose: 1 tab Al Hydroxide/Mg Hydroxide (Milk Of Magnesia Liq) 30 ml PO Q12H PRN PRN Reason: Mild Constipation Albuterol (Duoneb Neb (Prn)) 1 ampul NEB Q4HR NEB PRN PRN Reason: SOB/Wheezing Amlodipine Besylate (Norvasc) 10 mg PO [facility] Last Admin: 09/03/18 20:16 Dose: 10 mg Atorvastatin Calcium (Lipitor) 80 mg PO [facility] Last Admin: 09/03/18 20:16 Dose: 80 mg Benzonatate (Tessalon Perles) 100 mg PO TID [facility] Last Admin: 09/04/18 17:51 Dose: 100 mg Bisacodyl (Dulcolax Supp) 10 mg RECTAL DAILY PRN PRN Reason: SEVERE CONSITIPATION Buspirone HCl (Buspar) 10 mg PO TID [facility] Last Admin: 09/04/18 17:51 Dose: 10 mg Chlorhexidine Gluconate (Hibiclens 4% Topical) 1 applicatio [employer] [facility] Stop: 09/06/18 15:43 Clonidine HCl (Catapres) 0.1 mg PO [facility] Last Admin: 09/03/18 20:16 Dose: 0.1 mg Sodium Chloride 77.5 ml/Papaverine HCl 60 mg/Nitroglycerin 100 mcg/Diltiazem HCl 100 mg 0 ml [employer] [facility] Stop: 09/06/18 15:43 Sodium Chloride 500 ml/ (Cefazolin Sodium 500 mg) 0 ml [employer] [facility] Stop: 09/06/18 15:44 Enoxaparin Sodium (Lovenox Inj) 40 mg SQ Q24H [facility] Last Admin: 09/04/18 15:48 Dose: 40 mg Fenofibrate (Tricor) 145 mg PO DAILY [facility] Last Admin: 09/04/18 09:23 Dose: 145 mg Guaifenesin/Dextromethorphan (Robitussin Dm Liq) 10 ml PO Q6H PRN PRN Reason: COUGH Last Admin: 08/30/18 22:28 Dose: 10 ml Cefazolin Sodium 2,000 mg/ (Sodium Chloride) 100 mls @ 200 mls/hr IV.SIG [employer] [facility] Stop: 09/06/18 15:44 Last Admin: 09/01/18 14:54 Dose: 200 mls/hr Potassium Chloride (Kcl 20 Meq Premix Inj) 20 meq in 100 mls @ 50 mls/hr IV.SIG UNSCH PRN PRN Reason: For K+ Level < 4.0 Lactulose (Lactulose Liq) 30 ml PO DAILY PRN PRN Reason: SEVERE CONSITIPATION Levofloxacin (Levaquin) 750 mg PO DAILY [facility] Last Admin: 09/04/18 09:23 Dose: 750 mg Levothyroxine Sodium (Synthroid) 200 mcg PO DAILY@0600 [facility] Last Admin: 09/04/18 05:21 Dose: 200 mcg Liothyronine Sodium (Cytomel) 5 mcg PO DAILY [facility] Last Admin: 09/04/18 09:24 Dose: 5 mcg Metronidazole (Flagyl) 500 mg PO Q8HR [facility] Last Admin: 09/04/18 13:24 Dose: 500 mg Montelukast Sodium (Singulair) 10 mg PO QPM [facility] Last Admin: 09/04/18 17:51 Dose: 10 mg Morphine Sulfate (Morphine Inj) 2 mg IV.PUSH Q3H PRN PRN Reason: BREAKTHROUGH PAIN Last Admin: 09/04/18 08:35 Dose: 2 mg Naloxone HCl (Narcan Inj) 0.4 mg IV.PUSH UNSCH PRN PRN Reason: SEE LABEL COMMENTS Ondansetron HCl (Zofran Inj) 4 mg IV.PUSH Q6H PRN PRN Reason: NAUSEA OR VOMITING Senna/Docusate Sodium (Nirali-Colace) 1 tab PO BID [facility] Last Admin: 09/04/18 09:23 Dose: 1 tab Sennosides (Senokot) 17.2 mg PO Q12H PRN PRN Reason: Moderate Constipation Sodium Chloride (Ns Flush) 2 ml IV.FLUSH BID [facility] Last Admin: 09/04/18 09:24 Dose: 2 ml Sodium Chloride (Ns Flush) 2 ml IV.FLUSH PRN PRN PRN Reason: FLUSH AFTER USING IV ACCESS Trazodone HCl (Desyrel) 100 mg PO [facility] Last Admin: 09/03/18 20:16 Dose: 100 mg Allergies Allergy/AdvReac Type Severity Reaction Status Date / Time No Known Allergies Allergy Uncoded 10/23/12 14:51 Home Medications Medication Instructions Recorded Confirmed Type amlodipine 10 mg PO 08/27/18 08/27/18 History azithromycin 250 mg PO DAILY 08/27/18 08/27/18 History benzonatate 100 mg PO TID 08/27/18 08/27/18 History buspirone 10 mg PO TID 08/27/18 08/27/18 History cefdinir 300 mg PO Q12H 08/27/18 08/27/18 History clonidine HCl 0.1 mg PO HS 08/27/18 08/27/18 History fenofibrate 160 mg PO DAILY 08/27/18 08/27/18 History levothyroxine 200 mcg PO DAILY 08/27/18 08/27/18 History liothyronine 5 mcg PO DAILY 08/27/18 08/27/18 History methylprednisolone 4 mg PO PER PKG DIR 08/27/18 08/27/18 History montelukast 10 mg PO QPM 08/27/18 08/27/18 History promethazine-DM 5 ml PO Q4H PRN 08/27/18 08/27/18 History rosuvastatin 40 mg PO HS 08/27/18 08/27/18 History trazodone 100 mg PO HS 08/27/18 08/27/18 History Exam Vital signs: Vital Signs 09/03/18 19:00 09/03/18 20:00 09/03/18 20:50 Temperature 99.3 F Pulse Rate 71 70 Respiratory Rate 16 16 Blood Pressure 133/69 Pulse Oximetry 94 L 94 L 09/03/18 21:00 09/03/18 22:00 09/03/18 23:00 Temperature 100.2 F H Pulse Rate 67 66 71 Respiratory Rate 16 Blood Pressure 113/62 Pulse Oximetry 94 L 09/04/18 00:00 09/04/18 01:00 09/04/18 02:00 Temperature Pulse Rate 64 61 63 Respiratory Rate Blood Pressure Pulse Oximetry 09/04/18 03:00 09/04/18 03:59 09/04/18 04:56 Temperature 100.2 F H Pulse Rate 64 68 62 Respiratory Rate 16 Blood Pressure 113/62 Pulse Oximetry 94 L 09/04/18 05:51 09/04/18 07:00 09/04/18 08:00 Temperature 98.9 F Pulse Rate 65 74 65 Respiratory Rate 18 Blood Pressure 123/63 Pulse Oximetry 95 94 L 09/04/18 09:00 09/04/18 10:00 09/04/18 11:00 Temperature 98.8 F Pulse Rate 63 64 78 Respiratory Rate 18 Blood Pressure 114/68 Pulse Oximetry 94 L 09/04/18 12:00 09/04/18 13:00 09/04/18 14:00 Temperature Pulse Rate 68 66 64 Respiratory Rate Blood Pressure Pulse Oximetry 09/04/18 15:00 09/04/18 16:00 09/04/18 17:00 Temperature 98.9 F Pulse Rate 78 72 76 Respiratory Rate 18 Blood Pressure 116/72 Pulse Oximetry 94 L 09/04/18 18:00 Temperature Pulse Rate 74 Respiratory Rate Blood Pressure Pulse Oximetry Intake & Output 09/03/18 09/04/18 09/04/18 18:59 06:59 18:59 Intake Total 700 / 700 580 / 580 975 / 975 Output Total 800 / 800 910 / 910 800 / 800 Balance -100 / -100 -330 / -330 175 / 175 Weight 94 kg Intake: IV 100 / 100 100 / 100 Maxipime Inj 2,000 MG In NS Inj 100 / 100 100 / 100 100 ML @ 200 mls/hr IV.SIG Q8H [facility] Rx#:[id number] Oral 600 / 600 480 / 480 975 / 975 Output: Urine 800 / 800 900 / 900 800 / 800 Chest Tube Drainage 10 / 10 Right Pleural 10 / 10 Other: # Bowel Movements 0 - Constitutional no acute distress, obese - Routine HEENT Exam Head: Present: normocephalic, atraumatic Eye: Present: EOMI, PERRL ENT: Present: mucous membranes moist, oropharynx clear - Routine Neck Exam Present: supple. Absent: JVD, lymphadenopathy - Routine Respiratory Exam Present: decreased breath sounds (On R), rhonchi (on the R posteriorly) - Routine Cardiovascular Exam Present: RRR, S1, S2. Absent: murmur, gallop, rubs - Routine Abdominal Exam Present: soft, normoactive bowel sounds. Absent: tenderness, distended, organomegaly, mass - Routine Extremities Exam Absent: cyanosis, clubbing, edema - Routine Skin Exam Present: dry, warm. Absent: intact, jaundice, rash - Routine Neurological Exam Present: alert, oriented X3, CN II-XII intact. Absent: sensory deficit, motor deficit - Routine Psychiatric Exam Present: normal affect, cooperative Results - Labs CBC & Chem 7: 09/04/18 06:43 09/02/18 04:09 Labs: Laboratory Results - last 24 hr 09/04/18 06:43 WBC 13.8 H RBC 3.49 L Hgb 10.4 L Hct 31.1 L MCV 89.1 MCH 29.9 MCHC 33.6 RDW 14.0 Plt Count 580 H MPV 7.8 Neut % (Auto) 69.3 Lymph % (Auto) 14.8 [place] % (Auto) 9.7 H Eos % (Auto) 5.1 H Baso % (Auto) 1.1 Neut # (Auto) 9.5 H Lymph # (Auto) 2.0 [place] # (Auto) 1.3 H Eos # (Auto) 0.7 H Baso # (Auto) 0.1 WBC Differential . Differential Comment Auto diff final - Imaging Impressions Chest X-Ray 09/04/18 06:00 CONCLUSION: Increasing consolidative changes and fluid on the right in spite of chest tube. Chest CTA 08/27/18 18:02 CONCLUSION: 1. No definitive CT evidence for pulmonary artery embolism although evaluation of the right pulmonary artery branches is limited, as above. 2. Moderate to large loculated right-sided pleural effusion demonstrating indeterminate density. Differential considerations include empyema in the appropriate clinical setting. 3. Airspace consolidation in the right lung with associated volume loss likely reflects compressive atelectasis. Differential considerations include right lower lobe pneumonia and aspiration. 4. Mild nonspecific mediastinal and right hilar adenopathy, likely reactive/ infectious in etiology. Chest Tube Insertion 08/28/18 00:00 CONCLUSION: 1. Uncomplicated chest tube placement as above. Chest X-Ray 08/31/18 06:00 CONCLUSION: 1. [Interval placement of a right sided cope loop thoracostomy tube. 2. Probable loculated component of the right-sided effusion the right apex has resolved. Persistent right basilar consolidation/effusion. Left lung remains clear. Chest X-Ray 09/01/18 15:39 CONCLUSION: Small right apical pneumothorax and right pleural effusion noted with chest tube in place. Right basilar atelectasis and airspace disease and left upper lobe airspace disease. Chest X-Ray 09/02/18 15:39 CONCLUSION: Improved aeration. Chest X-Ray 09/04/18 06:00 CONCLUSION: Increasing consolidative changes and fluid on the right in spite of chest tube. Assessment and Plan - Plan R pleural space empyema, clx negative sp Right thoracoscopic exploration to drain loculated effusion, lysis of adhesions, pleural biopsies No prior abx use Clx both sputum and pleural fluid were negativbe Likely fasticious strep and/or anaerobs. cont oral abx switch to augmentin 500 tid Cont until clinical and radiological resolution
[2018-09-04] MEDS: traZODone 100 MG Tablet PO SCH (21:12)
[2018-09-04] MEDS: amLODIPine 10 MG Tablet PO SCH (21:13)
[2018-09-05 05:03] LABS: Baso # (Auto) 0.1 th/mm3 (0.0-0.2); Baso % (Auto) 1.1 % (0.0-2.0); Eos # (Auto) 0.5 th/mm3 (0.0-0.4); Eos % (Auto) 4.1 % (0.0-4.0); Hematocrit 31.8 % (35.0-46.0); Hemoglobin 10.5 gm/dL (11.6-15.3); Lymph # (Auto) 1.8 th/mm3 (1.0-4.8); Lymph % (Auto) 14.2 % (9.0-44.0); Mean Corpuscular HGB Conc 33.1 % (32.0-36.0); Mean Corpuscular Hemoglobin 30.1 pg (27.0-34.0); Mean Corpuscular Volume 90.8 fL (80.0-100.0); Mean Platelet Volume 7.7 fL (7.0-11.0); Mono # (Auto) 1.2 th/mm3 (0.0-0.9); Mono % (Auto) 9.2 % (0.0-8.0); Neut # (Auto) 9.1 th/mm3 (1.8-7.7); Neut % (Auto) 71.4 % (16.0-70.0); Platelet Count 600 th/mm3 (150-450); White Blood Count 12.8 th/mm3 (4.0-11.0)
[2018-09-05 05:13] LABS: Albumin 2.1 g/dL (3.4-5.0); Anion Gap 11 meq/L (5-15); Blood Urea Nitrogen 8 mg/dL (7-18); Calcium 8.2 mg/dL (8.5-10.1); Carbon Dioxide 27.5 meq/L (21.0-32.0); Chloride 103 meq/L (98-107); Glomerular Filtration Rate Greater Than 89 mL/min (>89); Glucose,Random 101 mg/dL (74-106); Magnesium 1.9 mg/dL (1.5-2.5); Phosphorus 2.8 mg/dL (2.5-4.9); Sodium 141 meq/L (136-145)
[2018-09-05] MEDS: metroNIDAZOLE 500 MG Tablet PO SCH ×3 (05:55→21:00)
[2018-09-05] MEDS: Sod Chloride 0.9% Inj 1,000 ML IV.CONT SCH (07:58)
[2018-09-05] MEDS: Liothyronine 5 MCG Tablet PO SCH (08:03)
[2018-09-05] MEDS: levoFLOXacin 750 MG Tablet PO SCH (08:03)
[2018-09-05] MEDS: Fenofibrate 145 MG Tablet PO SCH (08:03)
[2018-09-05] MEDS: Senna/Docusate Sodium 8.6/50 MG Tablet PO SCH ×2 (08:04→20:55)
[2018-09-05] MEDS: Benzonatate 100 MG Capsule PO SCH ×3 (08:04→17:12)
--- NOTE | 2018-09-05 14:00 | P.PN ---
Subjective Interval history: ALERT UP IN CHAIR NO SOB Physical Exam Vital signs: Vital Signs 09/04/18 14:00 09/04/18 15:00 09/04/18 16:00 Temperature 98.9 F Pulse Rate 64 78 72 Respiratory Rate 18 Blood Pressure 116/72 Pulse Oximetry 94 L 09/04/18 17:00 09/04/18 18:00 09/04/18 19:00 Temperature 99.6 F Pulse Rate 76 74 85 Respiratory Rate 18 Blood Pressure 132/76 Pulse Oximetry 94 L 09/04/18 20:00 09/04/18 21:00 09/04/18 21:51 Temperature Pulse Rate 75 81 86 Respiratory Rate Blood Pressure Pulse Oximetry 94 L 09/04/18 23:00 09/05/18 00:00 09/05/18 00:53 Temperature 99.4 F Pulse Rate 73 67 63 Respiratory Rate 18 Blood Pressure 119/67 Pulse Oximetry 94 L 09/05/18 02:00 09/05/18 02:43 09/05/18 03:00 Temperature 99.3 F Pulse Rate 81 80 68 Respiratory Rate 18 Blood Pressure 157/83 H Pulse Oximetry 94 L 09/05/18 04:00 09/05/18 04:53 09/05/18 06:00 Temperature Pulse Rate 74 64 61 Respiratory Rate Blood Pressure Pulse Oximetry 09/05/18 07:00 09/05/18 08:00 09/05/18 09:00 Temperature 99.3 F Pulse Rate 83 65 62 Respiratory Rate 18 Blood Pressure 143/85 H Pulse Oximetry 95 95 09/05/18 09:30 09/05/18 09:58 09/05/18 10:13 Temperature Pulse Rate 68 Respiratory Rate 18 Blood Pressure Pulse Oximetry 85 L 09/05/18 11:00 09/05/18 11:31 Temperature 99.0 F Pulse Rate 72 Respiratory Rate 18 Blood Pressure 123/77 Pulse Oximetry 96 97 Intake & Output 09/04/18 09/05/18 09/05/18 18:59 06:59 18:59 Intake Total 975 / 975 480 / 480 100 / 100 Output Total 800 / 800 400 / 400 Balance 175 / 175 80 / 80 100 / 100 Weight 93.5 kg Intake: IV 100 / 100 Oral 975 / 975 480 / 480 Output: Urine 800 / 800 400 / 400 Other: Date of Last Bowel Movement 09/05/18 # Bowel Movements 0 - Urinary Catheter Management Indwelling Urethral Catheter Cath placed during this visit: yes, but has since been removed by the nurse Reason for continuing: Not indwelling catheter Insertion date: 09/01/18 Insertion time: 14:30 Removal date: 09/01/18 Removal time: 18:55 Results - Labs CBC & Chem 7: 09/05/18 04:10 09/05/18 04:10 Laboratory Results - last 24 hr 09/05/18 09/05/18 04:10 04:10 WBC 12.8 H RBC 3.50 L Hgb 10.5 L Hct 31.8 L MCV 90.8 MCH 30.1 MCHC 33.1 RDW 14.0 Plt Count 600 H MPV 7.7 Neut % (Auto) 71.4 H Lymph % (Auto) 14.2 [place] % (Auto) 9.2 H Eos % (Auto) 4.1 H Baso % (Auto) 1.1 Neut # (Auto) 9.1 H Lymph # (Auto) 1.8 [place] # (Auto) 1.2 H Eos # (Auto) 0.5 H Baso # (Auto) 0.1 WBC Differential . Differential Comment Auto diff final Sodium 141 Potassium 3.0 L Chloride 103 Carbon Dioxide 27.5 Anion Gap 11 BUN 8 Creatinine 0.42 L Estimated GFR Greater than 89 Random Glucose 101 Calcium 8.2 L Phosphorus 2.8 Magnesium 1.9 Albumin 2.1 L Assessment and Plan - Plan LOCULATED EFFUSION post decortication chest tube REMOVED PLAN INCREASE ACTIVITY pulm toilet
[2018-09-05] MEDS: Enoxaparin Inj 40 MG/0.4 ML Syringe SQ SCH (16:22)
--- NOTE | 2018-09-05 16:54 | P.PNIM ---
Subjective Interval history: Patient sitting upright in the chair. Says she got short of breath on ambulation today. No other complaints from the patient. Physical Exam Vital signs: Vital Signs 09/04/18 17:00 09/04/18 18:00 09/04/18 19:00 Temperature 99.6 F Pulse Rate 76 74 85 Respiratory Rate 18 Blood Pressure 132/76 Pulse Oximetry 94 L Pulse Oximetry [Exertion on Room Air] Pulse Oximetry [Exertion with Oxygen] Pulse Oximetry [Resting on Room Air] 09/04/18 20:00 09/04/18 21:00 09/04/18 21:51 Temperature Pulse Rate 75 81 86 Respiratory Rate Blood Pressure Pulse Oximetry 94 L Pulse Oximetry [Exertion on Room Air] Pulse Oximetry [Exertion with Oxygen] Pulse Oximetry [Resting on Room Air] 09/04/18 23:00 09/05/18 00:00 09/05/18 00:53 Temperature 99.4 F Pulse Rate 73 67 63 Respiratory Rate 18 Blood Pressure 119/67 Pulse Oximetry 94 L Pulse Oximetry [Exertion on Room Air] Pulse Oximetry [Exertion with Oxygen] Pulse Oximetry [Resting on Room Air] 09/05/18 02:00 09/05/18 02:43 09/05/18 03:00 Temperature 99.3 F Pulse Rate 81 80 68 Respiratory Rate 18 Blood Pressure 157/83 H Pulse Oximetry 94 L Pulse Oximetry [Exertion on Room Air] Pulse Oximetry [Exertion with Oxygen] Pulse Oximetry [Resting on Room Air] 09/05/18 04:00 09/05/18 04:53 09/05/18 06:00 Temperature Pulse Rate 74 64 61 Respiratory Rate Blood Pressure Pulse Oximetry Pulse Oximetry [Exertion on Room Air] Pulse Oximetry [Exertion with Oxygen] Pulse Oximetry [Resting on Room Air] 09/05/18 07:00 09/05/18 08:00 09/05/18 09:00 Temperature 99.3 F Pulse Rate 83 65 62 Respiratory Rate 18 Blood Pressure 143/85 H Pulse Oximetry 95 95 Pulse Oximetry [Exertion on Room Air] Pulse Oximetry [Exertion with Oxygen] Pulse Oximetry [Resting on Room Air] 09/05/18 09:30 09/05/18 09:58 09/05/18 10:13 Temperature Pulse Rate 68 Respiratory Rate 18 Blood Pressure Pulse Oximetry 85 L Pulse Oximetry [Exertion on Room Air] Pulse Oximetry [Exertion with Oxygen] Pulse Oximetry [Resting on Room Air] 09/05/18 10:30 09/05/18 11:00 09/05/18 11:31 Temperature 99.0 F Pulse Rate 72 Respiratory Rate 18 Blood Pressure 123/77 Pulse Oximetry 92 L 97 Pulse Oximetry [Exertion on Room Air] 85 L Pulse Oximetry [Exertion with Oxygen] 92 L Pulse Oximetry [Resting on Room Air] 89 L 09/05/18 12:00 09/05/18 13:00 09/05/18 14:00 Temperature Pulse Rate 74 73 70 Respiratory Rate Blood Pressure Pulse Oximetry Pulse Oximetry [Exertion on Room Air] Pulse Oximetry [Exertion with Oxygen] Pulse Oximetry [Resting on Room Air] 09/05/18 14:42 09/05/18 15:00 09/05/18 16:00 Temperature 98.6 F Pulse Rate 69 74 Respiratory Rate 18 18 Blood Pressure 149/72 H Pulse Oximetry 95 Pulse Oximetry [Exertion on Room Air] Pulse Oximetry [Exertion with Oxygen] Pulse Oximetry [Resting on Room Air] Intake & Output 09/04/18 09/05/18 09/05/18 18:59 06:59 18:59 Intake Total 975 / 975 480 / 480 100 / 100 Output Total 800 / 800 400 / 400 Balance 175 / 175 80 / 80 100 / 100 Weight 93.5 kg Intake: IV 100 / 100 Oral 975 / 975 480 / 480 Output: Urine 800 / 800 400 / 400 Other: Date of Last Bowel Movement 09/05/18 # Bowel Movements 0 Narrative: alert and oriented [id number] Decreased breath sounds on the right No edema of exts no focal neuro deficits Urinary Catheter Management Indwelling Urethral Catheter: Cath placed during this visit: yes, but has since been removed by the nurse Reason for continuing: Not indwelling catheter Insertion date: 09/01/18 Insertion time: 14:30 Removal date: 09/01/18 Removal time: 18:55 Results Labs CBC & Chem 7: 09/05/18 04:10 09/05/18 04:10 Labs: Microbiology 08/29/18 09:35 Fluid - Other Acid Fast Bacilli Smear - Final No acid fast bacilli seen 08/29/18 09:35 Fluid - Other Mycobacterial Culture - Preliminary No growth in 1 week 08/29/18 09:35 Fluid - Other Fungal Smear - Final No fungal elements seen 08/29/18 09:35 Fluid - Other Fungal Culture - Preliminary No growth in 1 week Assessment and Plan (1) S/P thoracotomy: Code(s): Z98.890 - Other specified postprocedural states Status: Acute (2) Loculated pleural effusion: Code(s): J90 - Pleural effusion, not elsewhere classified Status: Acute (3) Pleural effusion on right: Code(s): J90 - Pleural effusion, not elsewhere classified Status: Acute (4) Pneumonia: Code(s): J18.9 - Pneumonia, unspecified organism Status: Acute Plan 58 y/o female admitted with shorness of breath. Found to have a loculated right sided pleural effusion. 1. Severe sepsis 2/2 Pneumonia/Empyema s/p chest tube and removal 2. Acute hypoxic resp failure 2/2 # 1 Patient was tachycardic, elevated wbc ct, and hypoxic wbc ct downtrended, hypoxia improved CT chest showed right loculated effusion Chest tube placed, symptoms improving, chest tube removed. Pulm/CTS evaluating the patient. CXR from yesterday still shows a significant amount fluid in the right lung. Will repeat a cxr tomorrow morning. On IV antibiotics. Will discuss the case with ID for recs on discharge in the next coming day. Patient hypoxic on ambulation. On 2 L of oxygen as of now. Will reassess tomorrow, may need home oxygen. Cultures are negative. 3. HTN/DLD Continue home meds. 4. Electrolyte abnormalities K low, replaced. Follow up am labs. Progress Note: Quality VTE Deep Vein Thrombosis/Pulmonary Embolism Present on Admission: No _ (1) Pneumonia Qualifiers: Aspiration pneumonia type: Laterality: right Lung location: unspecified part of lung Pneumonia type: due to unspecified organism Qualified Code(s): J18.9 - Pneumonia, unspecified organism
[2018-09-05] MEDS: Montelukast 10 MG Tablet PO SCH (17:12)
[2018-09-05] MEDS: Morphine Inj 4 MG/ML Vial IV.PUSH PRN (17:12)
[2018-09-05] MEDS: amLODIPine 10 MG Tablet PO SCH (20:54)
[2018-09-05] MEDS: traZODone 100 MG Tablet PO SCH (20:54)
[2018-09-06 05:03] LABS: Anion Gap 9 meq/L (5-15); Calcium 8.7 mg/dL (8.5-10.1); Carbon Dioxide 27.3 meq/L (21.0-32.0); Chloride 106 meq/L (98-107); Glomerular Filtration Rate Greater Than 89 mL/min (>89); Glucose,Random 114 mg/dL (74-106); Magnesium 1.9 mg/dL (1.5-2.5); Potassium 3.5 meq/L (3.5-5.1); Sodium 142 meq/L (136-145)
[2018-09-06 05:05] LABS: Blood Urea Nitrogen 8 mg/dL (7-18)
[2018-09-06 05:06] LABS: Baso # (Auto) 0.1 th/mm3 (0.0-0.2); Baso % (Auto) 0.9 % (0.0-2.0); Eos # (Auto) 0.5 th/mm3 (0.0-0.4); Eos % (Auto) 3.8 % (0.0-4.0); Hematocrit 31.7 % (35.0-46.0); Hemoglobin 10.3 gm/dL (11.6-15.3); Lymph % (Auto) 15.8 % (9.0-44.0); Mean Corpuscular HGB Conc 32.5 % (32.0-36.0); Mean Corpuscular Hemoglobin 29.5 pg (27.0-34.0); Mean Corpuscular Volume 90.9 fL (80.0-100.0); Mean Platelet Volume 7.6 fL (7.0-11.0); Mono # (Auto) 1.2 th/mm3 (0.0-0.9); Mono % (Auto) 9.2 % (0.0-8.0); Neut % (Auto) 70.3 % (16.0-70.0); Platelet Count 559 th/mm3 (150-450); Red Blood Count 3.49 mil/mm3 (4.00-5.30); Red Cell Distribution Width 14.1 % (11.6-17.2); White Blood Count 12.7 th/mm3 (4.0-11.0)
[2018-09-06] MEDS: metroNIDAZOLE 500 MG Tablet PO SCH ×3 (05:52→22:56)
[2018-09-06] MEDS: Liothyronine 5 MCG Tablet PO SCH (08:37)
[2018-09-06] MEDS: Fenofibrate 145 MG Tablet PO SCH (08:38)
[2018-09-06] MEDS: levoFLOXacin 750 MG Tablet PO SCH (08:39)
[2018-09-06] MEDS: Senna/Docusate Sodium 8.6/50 MG Tablet PO SCH ×2 (08:39→20:14)
[2018-09-06] MEDS: Benzonatate 100 MG Capsule PO SCH ×3 (08:52→17:06)
--- NOTE | 2018-09-06 09:40 | XR ---
EXAM DATE: 09/06/2018 9:36 AM EST AGE/SEX: 58 years / Female INDICATIONS: . Pleural effusion CLINICAL DATA: This is the patient's subsequent encounter. Patient reports that signs and symptoms h ave been present for 1 week and indicates a pain score of 0/10. MEDICAL/SURGICAL HISTORY: . Hypertension. Stroke None. COMPARISON: [facility] [place] [facility] [place] 2[place] AP&LAT, 09/04/2018. . FINDINGS: Right Chest tube has been removed. Persistent consolidation changes right base. Left lung clear The heart and pulmonary vascularity are normal. CONCLUSION: Right chest tube removed, no pneumothorax. Persistent consolidative changes right base Electronically signed by: Damian Dillon MD Board Certified Radiologist 09/06/2018 9:39 AM EST
[2018-09-06] MEDS: Enoxaparin Inj 40 MG/0.4 ML Syringe SQ SCH (14:30)
--- NOTE | 2018-09-06 15:01 | P.PNIM ---
Subjective Interval history: Patient still short of breath on ambulation. no other complaints. Physical Exam Vital signs: Vital Signs 09/05/18 15:00 09/05/18 16:00 09/05/18 17:00 Temperature 98.6 F Pulse Rate 69 74 68 Respiratory Rate 18 Blood Pressure 149/72 H Pulse Oximetry 95 09/05/18 17:44 09/05/18 17:45 09/05/18 19:00 Temperature 98.6 F Pulse Rate 70 74 Respiratory Rate 18 18 Blood Pressure 124/72 Pulse Oximetry 95 09/05/18 20:00 09/05/18 21:00 09/05/18 22:00 Temperature Pulse Rate 70 76 70 Respiratory Rate Blood Pressure Pulse Oximetry 95 09/05/18 23:00 09/06/18 00:00 09/06/18 01:00 Temperature 98.5 F Pulse Rate 64 60 62 Respiratory Rate 16 Blood Pressure 120/69 Pulse Oximetry 96 09/06/18 02:00 09/06/18 02:59 09/06/18 03:00 Temperature 98.9 F Pulse Rate 70 71 71 Respiratory Rate 16 Blood Pressure 134/74 Pulse Oximetry 95 09/06/18 04:00 09/06/18 05:00 09/06/18 06:00 Temperature Pulse Rate 62 56 L 58 L Respiratory Rate Blood Pressure Pulse Oximetry 09/06/18 07:00 09/06/18 08:00 09/06/18 09:00 Temperature 98.4 F Pulse Rate 63 78 65 Respiratory Rate 18 Blood Pressure 138/74 Pulse Oximetry 94 L 94 L 09/06/18 10:00 09/06/18 10:10 09/06/18 11:00 Temperature 98.6 F Pulse Rate 72 62 Respiratory Rate 18 18 Blood Pressure 119/66 Pulse Oximetry 98 09/06/18 11:44 09/06/18 13:00 Temperature Pulse Rate 59 L 66 Respiratory Rate Blood Pressure Pulse Oximetry Intake & Output 09/05/18 09/06/18 09/06/18 18:59 06:59 18:59 Intake Total 1325 / 1325 480 / 480 Output Total 500 / 500 1200 / 1200 Balance 825 / 825 -720 / -720 Weight 92.8 kg Intake: IV 100 / 100 Oral 1225 / 1225 480 / 480 Output: Urine 500 / 500 1200 / 1200 Other: # Voids 2 Date of Last Bowel Movement 09/05/18 09/05/18 09/05/18 # Bowel Movements 0 Narrative: alert and oriented s1s2 Decreased breath sounds on the right No edema of exts no focal neuro deficits Urinary Catheter Management Indwelling Urethral Catheter: Cath placed during this visit: yes, but has since been removed by the nurse Reason for continuing: Not indwelling catheter Insertion date: 09/01/18 Insertion time: 14:30 Removal date: 09/01/18 Removal time: 18:55 Results Labs CBC & Chem 7: 09/06/18 04:19 09/06/18 04:19 Labs: Microbiology 08/29/18 09:35 Fluid - Other Acid Fast Bacilli Smear - Final No acid fast bacilli seen 08/29/18 09:35 Fluid - Other Mycobacterial Culture - Preliminary No growth in 1 week 08/29/18 09:35 Fluid - Other Fungal Smear - Final No fungal elements seen 08/29/18 09:35 Fluid - Other Fungal Culture - Preliminary No growth in 1 week Imaging Imaging: Impressions Chest X-Ray 09/06/18 08:00 CONCLUSION: Right chest tube removed, no pneumothorax. Persistent consolidative changes right base Assessment and Plan (1) S/P thoracotomy: Code(s): Z98.890 - Other specified postprocedural states Status: Acute (2) Loculated pleural effusion: Code(s): J90 - Pleural effusion, not elsewhere classified Status: Acute (3) Pleural effusion on right: Code(s): J90 - Pleural effusion, not elsewhere classified Status: Acute (4) Pneumonia: Code(s): J18.9 - Pneumonia, unspecified organism Status: Acute Plan 58 y/o female admitted with shorness of breath. Found to have a loculated right sided pleural effusion. 1. Severe sepsis 2/2 Pneumonia/Empyema s/p chest tube and removal 2. Acute hypoxic resp failure 2/2 # 1 Patient was tachycardic, elevated wbc ct, and hypoxic wbc ct downtrended, hypoxia improved CT chest showed right loculated effusion Chest tube placed, symptoms improving, chest tube removed. Pulm/CTS evaluating the patient. CXR from yesterday still shows a significant amount fluid in the right lung. Repeat cxr from today shows a persistent right lower lobe dense infiltrate. Patient is still requiring 2 L of supplemental oxygen. Will attempt to titrate off of the oxygen. Patient may need home oxygen if unable to titrate off of the O2. On IV antibiotics. Patient hypoxic on ambulation. On 2 L of oxygen as of now. Will reassess tomorrow. Cultures are negative. 3. HTN/DLD Continue home meds. Progress Note: Quality VTE Deep Vein Thrombosis/Pulmonary Embolism Present on Admission: No _ (1) Pneumonia Qualifiers: Aspiration pneumonia type: Laterality: right Lung location: unspecified part of lung Pneumonia type: due to unspecified organism Qualified Code(s): J18.9 - Pneumonia, unspecified organism
[2018-09-06] MEDS: Montelukast 10 MG Tablet PO SCH (17:06)
--- NOTE | 2018-09-06 17:43 | P.PN ---
Subjective Interval history: ALERT UP IN CHAIR NO SOB Physical Exam Vital signs: Vital Signs 09/05/18 17:44 09/05/18 17:45 09/05/18 19:00 Temperature 98.6 F Pulse Rate 70 74 Respiratory Rate 18 18 Blood Pressure 124/72 Pulse Oximetry 95 09/05/18 20:00 09/05/18 21:00 09/05/18 22:00 Temperature Pulse Rate 70 76 70 Respiratory Rate Blood Pressure Pulse Oximetry 95 09/05/18 23:00 09/06/18 00:00 09/06/18 01:00 Temperature 98.5 F Pulse Rate 64 60 62 Respiratory Rate 16 Blood Pressure 120/69 Pulse Oximetry 96 09/06/18 02:00 09/06/18 02:59 09/06/18 03:00 Temperature 98.9 F Pulse Rate 70 71 71 Respiratory Rate 16 Blood Pressure 134/74 Pulse Oximetry 95 09/06/18 04:00 09/06/18 05:00 09/06/18 06:00 Temperature Pulse Rate 62 56 L 58 L Respiratory Rate Blood Pressure Pulse Oximetry 09/06/18 07:00 09/06/18 08:00 09/06/18 09:00 Temperature 98.4 F Pulse Rate 63 78 65 Respiratory Rate 18 Blood Pressure 138/74 Pulse Oximetry 94 L 94 L 09/06/18 10:00 09/06/18 10:10 09/06/18 10:35 Temperature Pulse Rate 72 Respiratory Rate 18 Blood Pressure Pulse Oximetry 95 09/06/18 11:00 09/06/18 11:44 09/06/18 13:00 Temperature 98.6 F Pulse Rate 62 59 L 66 Respiratory Rate 18 Blood Pressure 119/66 Pulse Oximetry 98 09/06/18 14:00 09/06/18 15:00 09/06/18 15:42 Temperature 98.3 F Pulse Rate 68 78 Respiratory Rate 18 18 Blood Pressure 145/77 H Pulse Oximetry 96 09/06/18 16:00 Temperature Pulse Rate 78 Respiratory Rate Blood Pressure Pulse Oximetry Intake & Output 09/05/18 09/06/18 09/06/18 18:59 06:59 18:59 Intake Total 1325 / 1325 480 / 480 1225 / 1225 Output Total 500 / 500 1200 / 1200 Balance 825 / 825 -720 / -720 1225 / 1225 Weight 92.8 kg Intake: IV 100 / 100 Oral 1225 / 1225 480 / 480 1225 / 1225 Output: Urine 500 / 500 1200 / 1200 Other: # Voids 2 5 Date of Last Bowel Movement 09/05/18 09/05/18 09/04/18 # Bowel Movements 0 - Urinary Catheter Management Indwelling Urethral Catheter Cath placed during this visit: yes, but has since been removed by the nurse Reason for continuing: Not indwelling catheter Insertion date: 09/01/18 Insertion time: 14:30 Removal date: 09/01/18 Removal time: 18:55 Results - Labs CBC & Chem 7: 09/06/18 04:19 09/06/18 04:19 Laboratory Results - last 24 hr 09/06/18 09/06/18 04:19 04:19 WBC 12.7 H RBC 3.49 L Hgb 10.3 L Hct 31.7 L MCV 90.9 MCH 29.5 MCHC 32.5 RDW 14.1 Plt Count 559 H MPV 7.6 Neut % (Auto) 70.3 H Lymph % (Auto) 15.8 [place] % (Auto) 9.2 H Eos % (Auto) 3.8 Baso % (Auto) 0.9 Neut # (Auto) 9.0 H Lymph # (Auto) 2.0 [place] # (Auto) 1.2 H Eos # (Auto) 0.5 H Baso # (Auto) 0.1 WBC Differential . Differential Comment Auto diff final Sodium 142 Potassium 3.5 Chloride 106 Carbon Dioxide 27.3 Anion Gap 9 BUN 8 Creatinine 0.51 Estimated GFR Greater than 89 Random Glucose 114 H Calcium 8.7 Magnesium 1.9 Microbiology 08/29/18 09:35 Fluid - Other Acid Fast Bacilli Smear - Final No acid fast bacilli seen 08/29/18 09:35 Fluid - Other Mycobacterial Culture - Preliminary No growth in 1 week 08/29/18 09:35 Fluid - Other Fungal Smear - Final No fungal elements seen 08/29/18 09:35 Fluid - Other Fungal Culture - Preliminary No growth in 1 week - Imaging Impressions Chest X-Ray 09/06/18 08:00 CONCLUSION: Right chest tube removed, no pneumothorax. Persistent consolidative changes right base Assessment and Plan - Plan LOCULATED EFFUSION post decortication chest tube REMOVED PLAN INCREASE ACTIVITY pulm toilet HOME SOON
[2018-09-06] MEDS: amLODIPine 10 MG Tablet PO SCH (20:13)
[2018-09-06] MEDS: traZODone 100 MG Tablet PO SCH (20:13)
[2018-09-07] MEDS: metroNIDAZOLE 500 MG Tablet PO SCH (05:28)
[2018-09-07] MEDS: Fenofibrate 145 MG Tablet PO SCH (09:31)
[2018-09-07] MEDS: levoFLOXacin 750 MG Tablet PO SCH (09:31)
[2018-09-07] MEDS: Liothyronine 5 MCG Tablet PO SCH (09:31)
[2018-09-07] MEDS: Senna/Docusate Sodium 8.6/50 MG Tablet PO SCH (09:31)
[2018-09-07] MEDS: Benzonatate 100 MG Capsule PO SCH ×2 (09:31→12:05)
--- NOTE | 2018-09-07 11:27 | P.PNIM ---
Subjective Interval history: Patient still gets shortness of breath on ambulation. No other complaints. Physical Exam Vital signs: Vital Signs 09/06/18 11:44 09/06/18 13:00 09/06/18 14:00 Temperature Pulse Rate 59 L 66 68 Respiratory Rate Blood Pressure Pulse Oximetry 09/06/18 15:00 09/06/18 15:42 09/06/18 16:00 Temperature 98.3 F Pulse Rate 78 78 Respiratory Rate 18 18 Blood Pressure 145/77 H Pulse Oximetry 96 09/06/18 17:00 09/06/18 18:00 09/06/18 19:00 Temperature 99.9 F H Pulse Rate 65 68 71 Respiratory Rate 18 Blood Pressure 133/70 Pulse Oximetry 97 09/06/18 20:00 09/06/18 21:00 09/06/18 22:00 Temperature Pulse Rate 84 70 68 Respiratory Rate Blood Pressure Pulse Oximetry 97 09/06/18 23:00 09/07/18 00:00 09/07/18 01:00 Temperature 98.2 F Pulse Rate 70 58 L 96 H Respiratory Rate 18 Blood Pressure 139/66 Pulse Oximetry 96 09/07/18 02:00 09/07/18 03:00 09/07/18 04:00 Temperature 98.7 F Pulse Rate 88 65 60 Respiratory Rate 18 Blood Pressure 118/67 Pulse Oximetry 96 09/07/18 05:00 09/07/18 06:00 09/07/18 07:00 Temperature 98.3 F Pulse Rate 54 L 72 72 Respiratory Rate 18 Blood Pressure 108/66 Pulse Oximetry 97 09/07/18 08:00 09/07/18 09:00 09/07/18 10:00 Temperature Pulse Rate 64 66 67 Respiratory Rate Blood Pressure Pulse Oximetry 97 Intake & Output 09/06/18 09/07/18 09/07/18 18:59 06:59 18:59 Intake Total 1225 / 1225 480 / 480 Output Total 100 / 100 Balance 1225 / 1225 380 / 380 Weight 92.5 kg Intake: Oral 1225 / 1225 480 / 480 Output: Urine 100 / 100 Other: # Voids 5 3 Date of Last Bowel Movement 09/04/18 09/05/18 09/07/18 Narrative: alert and oriented s1s2 Decreased breath sounds on the right No edema of exts no focal neuro deficits Urinary Catheter Management Indwelling Urethral Catheter: Cath placed during this visit: yes, but has since been removed by the nurse Reason for continuing: Not indwelling catheter Insertion date: 09/01/18 Insertion time: 14:30 Removal date: 09/01/18 Removal time: 18:55 Results Labs CBC & Chem 7: 09/06/18 04:19 09/06/18 04:19 Assessment and Plan (1) S/P thoracotomy: Code(s): Z98.890 - Other specified postprocedural states Status: Acute (2) Loculated pleural effusion: Code(s): J90 - Pleural effusion, not elsewhere classified Status: Acute (3) Pleural effusion on right: Code(s): J90 - Pleural effusion, not elsewhere classified Status: Acute (4) Pneumonia: Code(s): J18.9 - Pneumonia, unspecified organism Status: Acute Plan 58 y/o female admitted with shorness of breath. Found to have a loculated right sided pleural effusion. 09/07/18 Patient still requiring 2 L of supplemental oxygen. Will perform a walk test today. Likely will need home oxygen on discharge. Will follow up walk test results. Will send home on PO antibiotics. Case will be discussed with case management. Possible discharge for later today or tomorrow am depending on home oxygen. Cxs are negative. 1. Severe sepsis 2/2 Pneumonia/Empyema s/p chest tube and removal 2. Acute hypoxic resp failure 2/2 # 1 Patient was tachycardic, elevated wbc ct, and hypoxic wbc ct downtrended, hypoxia improved CT chest showed right loculated effusion Chest tube placed, symptoms improving, chest tube removed. Pulm/CTS evaluating the patient. CXR from yesterday still shows a significant amount fluid in the right lung. Repeat cxr from today shows a persistent right lower lobe dense infiltrate. Patient is still requiring 2 L of supplemental oxygen. Will attempt to titrate off of the oxygen. Patient may need home oxygen if unable to titrate off of the O2. On IV antibiotics. Patient hypoxic on ambulation. On 2 L of oxygen as of now. Will reassess tomorrow. Cultures are negative. 3. HTN/DLD Continue home meds. Progress Note: Quality VTE Deep Vein Thrombosis/Pulmonary Embolism Present on Admission: No _ (1) Pneumonia Qualifiers: Aspiration pneumonia type: Laterality: right Lung location: unspecified part of lung Pneumonia type: due to unspecified organism Qualified Code(s): J18.9 - Pneumonia, unspecified organism
[2018-09-07 12:39] VITALS: PULSE 69
[2018-09-07 12:43] VITALS: BP 103/66; RESP 16; TEMP 97.9; O2SAT 95
--- NOTE | 2018-09-07 13:39 | P.PNCV ---
- Note Subjective/Hospital Course: 58-year-old female with a past medical history significant for hypertension, hyperlipidemia and history of previous CVA presents to the emergency department for evaluation of fever/chills and productive cough for the past 2 weeks. The patient reports she has had a cough productive of green sputum that is occasionally blood-tinged. She complains of right inspiratory chest pain. She has had subjective fever/chills although did not take her temperature at home. She who was seen by her primary care provider and prescribed antibiotics and steroids without improvement. She denies any substernal chest pain. No abdominal pain. No nausea/vomiting/diarrhea. No focal neurologic deficits. 08/[address] chest noted moderate to large loculated right pleural effusion pt scheduled for Right VATS, possible thoracotomy , decortication in am 09/01 for surgery today Date of procedure: 09/01/18 Procedure: Right thoracoscopic exploration to drain loculated effusion, lysis of adhesions , pleural biopsies. Pleural fluid for cytology and cultures. Pleural fluid for labs. 09/02 no air leak in chest tube drained 160cc/ 12 hrs pt need to be OOB / ambulate consult PT 09/03/18 Doing well, no complaints 09/04/18 Doing well, no complaints. Afebrile 09/07 PT AMBULATING ON ROOM AIR OK TO DC FROM [facility] Objective: Vital Signs - 24 hr 09/06/18 14:00 09/06/18 15:00 09/06/18 15:42 Temperature 98.3 F Pulse Rate 68 78 Respiratory Rate 18 18 Blood Pressure 145/77 H Pulse Oximetry 96 Pulse Oximetry [Exertion on Room Air] Pulse Oximetry [Resting on Room Air] 09/06/18 16:00 09/06/18 17:00 09/06/18 18:00 Temperature Pulse Rate 78 65 68 Respiratory Rate Blood Pressure Pulse Oximetry Pulse Oximetry [Exertion on Room Air] Pulse Oximetry [Resting on Room Air] 09/06/18 19:00 09/06/18 20:00 09/06/18 21:00 Temperature 99.9 F H Pulse Rate 71 84 70 Respiratory Rate 18 Blood Pressure 133/70 Pulse Oximetry 97 97 Pulse Oximetry [Exertion on Room Air] Pulse Oximetry [Resting on Room Air] 09/06/18 22:00 09/06/18 23:00 02/25/19 00:00 Temperature 98.2 F Pulse Rate 68 70 58 L Respiratory Rate 18 Blood Pressure 139/66 Pulse Oximetry 96 Pulse Oximetry [Exertion on Room Air] Pulse Oximetry [Resting on Room Air] 09/07/18 01:00 09/07/18 02:00 09/07/18 03:00 Temperature 98.7 F Pulse Rate 96 H 88 65 Respiratory Rate 18 Blood Pressure 118/67 Pulse Oximetry 96 Pulse Oximetry [Exertion on Room Air] Pulse Oximetry [Resting on Room Air] 09/07/18 04:00 09/07/18 05:00 09/07/18 06:00 Temperature Pulse Rate 60 54 L 72 Respiratory Rate Blood Pressure Pulse Oximetry Pulse Oximetry [Exertion on Room Air] Pulse Oximetry [Resting on Room Air] 09/07/18 07:00 09/07/18 08:00 09/07/18 09:00 Temperature 98.3 F Pulse Rate 72 64 66 Respiratory Rate 18 Blood Pressure 108/66 Pulse Oximetry 97 97 Pulse Oximetry [Exertion on Room Air] Pulse Oximetry [Resting on Room Air] 09/07/18 10:00 09/07/18 11:00 09/07/18 12:00 Temperature 97.9 F Pulse Rate 67 69 69 Respiratory Rate 16 Blood Pressure 103/66 Pulse Oximetry 95 Pulse Oximetry [Exertion on Room Air] Pulse Oximetry [Resting on Room Air] 09/07/18 12:40 Temperature Pulse Rate Respiratory Rate Blood Pressure Pulse Oximetry Pulse Oximetry [Exertion on Room Air] 90 L Pulse Oximetry [Resting on Room Air] 94 L GENERAL: SKIN: Warm and dry. HEAD: Normocephalic. EYES: No scleral icterus. No injection or drainage. NECK: Supple, trachea midline. No JVD or lymphadenopathy. CARDIOVASCULAR: Regular rate and rhythm without murmurs, gallops, or rubs. RESPIRATORY: Breath sounds equal bilaterally. No accessory muscle use. DRESSING RIGHT CHEST WALL AREA GASTROINTESTINAL: Abdomen soft, non-tender, nondistended. MUSCULOSKELETAL: No cyanosis, or edema. BACK: Nontender without obvious deformity. No CVA tenderness. Result Diagrams: 09/06/18 04:19 09/06/18 04:19 - Plan (1) S/P thoracotomy Plan: pulm toileting await cultures and path OOB ambulate pain control RIGHT PLEURAL PEEL, EXCISION: ACUTE INFLAMMATORY EXUDATE AND FIBRIN. - NEGATIVE FOR MALIGNANT CELLS. OK TO DC FROM [facility] (3) Pleural effusion on right Plan: for surgery today (4) Pneumonia (4) Pneumonia Qualifiers: Pneumonia type: due to unspecified organism Laterality: right Lung location : unspecified part of lung Qualified Code(s): J18.9 - Pneumonia, unspecified organism
--- NOTE | 2018-09-07 14:00 | P.DS ---
DS: Providers Date of admission: 08/27/18 20:35 Primary care physician: UNKNOWN Consults: 08/27/18 21:24 Consult to Cardiothoracic Surgery Routine Consulting Provider: Germaine Rosado Reason for Consultation: possible empyema Spoke with:: adding to list courtesy call in AM Date Notified:: 08/27/18 Time Notified:: 21:51 Ordering Provider: TYLER 08/27/18 21:29 HUB Only Consult Order Routine Consulting Provider: Tatiana Simpson 08/31/18 07:58 Consult to Pulmonology Routine Consulting Provider: Henry Figueroa Reason for Consultation: loculated pleural effusion Notified:: Service Spoke with:: Jeremiah Date Notified:: 08/31/18 Time Notified:: 08:05 Ordering Provider: TRIP 09/04/18 12:04 Consult to Infectious Diseases Routine Consulting Provider: Tsering Franco Reason for Consultation: empyema with negative cultures. Notified:: Service Spoke with:: Toyin Date Notified:: 09/04/18 Time Notified:: 12:12 Ordering Provider: JOSE DS: Diagnosis Discharge Diagnosis (1) S/P thoracotomy: Status: Acute (2) Loculated pleural effusion: Status: Acute (3) Pleural effusion on right: Status: Acute (4) Pneumonia: Status: Acute DS: Summary 58 y/o female with hypertension, hyperlipidemia and history of previous CVA as per documentation admitted with shortness of breath. Found to have a loculated right sided pleural effusion. 09/07/18 1. Severe sepsis 2/2 Pneumonia/Empyema s/p chest tube and removal 2. Acute hypoxic resp failure 2/2 # 1 Patient was tachycardic, elevated wbc ct, and hypoxic wbc ct downtrended, hypoxia improved CT chest showed right loculated effusion Chest tube placed, symptoms improving, chest tube removed. Patient has been titrated off of supplemental oxygen. CXR still shows a right sided infiltrate and effusion. Clinically she has improved significantly. I had ordered a walk test today which the patient past. She will be given a script for po antibiotics as per ID recommendations. She has been on antibiotics since admission. Continue 7 more days of PO augmentin. All Cxs are negative. She should follow up with a primary care doctor in one week. As per documentation pt had a stroke in the past and is on aspirin at home which is currently not in our medication list. She can continue to take the aspirin at home which the patient says she has and has been taking at home. She was advised to return to the ED if she begins to have fevers, worsening shortness of breath, or worsening cough after discharge. She should also f/u with pulmonary in 1-2 weeks after discharge. [facility] has cleared the patient for discharge. 3. HTN Continue norvasc for htn, blood pressure under control. 4. Hx of CVA Patient says she is on a baby aspirin at home which can be continued. Pt is ambulatory. 1. Severe sepsis 2/2 Pneumonia/Empyema s/p chest tube and removal 2. Acute hypoxic resp failure 2/2 # 1 Patient was tachycardic, elevated wbc ct, and hypoxic wbc ct downtrended, hypoxia improved CT chest showed right loculated effusion Chest tube placed, symptoms improving, chest tube removed. Pulm/CTS evaluating the patient. CXR from yesterday still shows a significant amount fluid in the right lung. Repeat cxr from today shows a persistent right lower lobe dense infiltrate. Patient is still requiring 2 L of supplemental oxygen. Will attempt to titrate off of the oxygen. Patient may need home oxygen if unable to titrate off of the O2. On IV antibiotics. Time Spent with Patient Total time spent providing and/or coordinating discharge services: Quality: VTE Deep Vein Thrombosis/Pulmonary Embolism Present on Admission: No Exam Narrative Exam Narrative: alert and oriented s1s2 Decreased breath sounds on the right base No edema of exts no focal neuro deficits Results Labs on day of discharge: Preliminary micro results at discharge 08/29/18 09:35 Mycobacterial Culture - Preliminary Fluid - Other No growth in 1 week 08/29/18 09:35 Fungal Culture - Preliminary Fluid - Other No growth in 1 week Impressions ITS Impressions Chest CTA 08/27/18 18:02 CONCLUSION: 1. No definitive CT evidence for pulmonary artery embolism although evaluation of the right pulmonary artery branches is limited, as above. 2. Moderate to large loculated right-sided pleural effusion demonstrating indeterminate density. Differential considerations include empyema in the appropriate clinical setting. 3. Airspace consolidation in the right lung with associated volume loss likely reflects compressive atelectasis. Differential considerations include right lower lobe pneumonia and aspiration. 4. Mild nonspecific mediastinal and right hilar adenopathy, likely reactive/ infectious in etiology. Chest Tube Insertion 08/28/18 00:00 CONCLUSION: 1. Uncomplicated chest tube placement as above. Chest X-Ray 09/06/18 08:00 CONCLUSION: Right chest tube removed, no pneumothorax. Persistent consolidative changes right base Discharge Plan Discharge Disposition Patient Disposition: W/Home Health Service Discharge Condition Condition: Stable Discharge Order Discharge Orders: Discharge Order (Routine); Ordered 09/07/18 Ordered By: Conner Murillo Physicians Team ED Provider: Misbah Orourke ED Midlevel Provider: Lauren Lopez Primary Care Provider: UNKNOWN, Attending Provider: Conner Murillo Other Providers: Germaine Rosado ; Tatiana Simpson ; Henry Figueroa ; Tsering Franco Rxs /Orders / Referrals /Forms Prescriptions: New amoxicillin-pot clavulanate [Augmentin] 500-125 mg tablet 1 tab PO Q8H Qty: 21 RF: 0 Continue clonidine HCl 0.1 mg Tablet 0.1 mg PO HS RF: 0 liothyronine 5 mcg Tablet 5 mcg PO DAILY RF: 0 trazodone 100 mg Tablet 100 mg PO HS RF: 0 amlodipine 10 mg Tablet 10 mg PO HS RF: 0 buspirone 10 mg Tablet 10 mg PO TID RF: 0 montelukast 10 mg Tablet 10 mg PO QPM RF: 0 rosuvastatin 40 mg Tablet 40 mg PO HS RF: 0 fenofibrate 160 mg Tablet 160 mg PO DAILY RF: 0 levothyroxine 200 mcg Capsule 200 mcg PO DAILY RF: 0 promethazine-DM 6.25-15 mg/5 mL Syrup 5 ml PO Q4H PRN (Reason: Cough) RF: 0 benzonatate 100 mg Capsule 100 mg PO TID RF: 0 methylprednisolone 4 mg Tablets,Dose Pack 4 mg PO PER PKG DIR RF: 0 Discontinued azithromycin 250 mg Tablet 250 mg PO DAILY RF: 0 cefdinir 300 mg Capsule 300 mg PO Q12H RF: 0 Referrals: Willa Decker [[facility] RN PRACTITIONER] - See Instructions ( Your appointment has been scheduled for [09/17/18] at [11:30 AM] If you cannot make this appointment, please call the office to reschedule ) UNKNOWN, [Primary Care Provider] - See Instructions Herny Figueroa MD [Physician] - See Instructions Discharge Instructions Patient Printed Instructions: Viral Pneumonia (DC), Pneumonitis (DC), How to Stop Smoking (DC), Thoracoscopy (DC), Heart Healthy Diet (DC), Skin Adhesive Care (DC), Steristrips (ED), Exercise Safety (GEN) Additional Instructions: Incentive spirometry Q1 hr x 10, while awake, also use acapella device hourly whole Chest wall precautions: NO pushing or pulling, ( pt must use chest pillow support chest with all activities and with coughing Daily incision care: ok to shower ( 48hrs after chest tube removed) and then daily, no tub bath. Wash all incisions with liquid dial soap, clean wash cloth to each site, rinse and pat dry. Observe for any signs of infection, such as drainage which is dark yellow, rober[place], green or foul smelling. Immediately report to the surgeon any drainage from the chest incision, or legs, and for any abnormal drainage from the chest tube sites. Notify surgeon if any temp > 101.5 degrees F. When specialty dressing removed/ or if you do not have one, continue to shower daily as above, then rinse and pat incision dry and paint with betadine daily x 5 days. Allow steri strips to fall off if you have any. Avoid lotions, creams, salves, oils, etc. for the first month For Dr. Rosado patients , please obtain PA & Lat CXR in 2 weeks, results to Dr. Rosado ( prescription will be given) ( ) (Tele: ) , F/U appointment: as per DC instructions: PCP in 2 weeks, CV surgeon 2 weeks, Facilities Assistant 3-4 weeks For any questions regarding incisions/ dressing / meds / post op care or above Symptoms, Friday 8am-5pm Heart & Vascular Surgery Office ( Dr. Parmar & Dr. Rosado), After Hours / Nights (5pm -8am) Weekends and Holidays Please call [facility] Card[facility] Unit ([facility]) Charge Nurse Discharge Interventions Interventions: Discharge Planning - Case Management Last Done: 09/04/18 14:23 Status ED Status: Left Department
== END 2018-09-07 14:49 | disposition home health service (06) | DRG 853 ==
LOC: NEPC 17:26 → NEDA 20:35 → HCIS 22:40 → HCPC 09-01 17:01
PROVIDERS: ADMIT Hospitalist; ATTEND Hospitalist
DX: J18.9 Pneumonia, unspecified organism; E78.5 Hyperlipidemia, unspecified; R63.4 Abnormal weight loss; R59.0 Localized enlarged lymph nodes; Z77.22 Contact with and (suspected) exposure to environmental tobacco smoke (acute) (chronic); A41.9 Sepsis, unspecified organism; Z79.899 Other long term (current) drug therapy; R65.20 Severe sepsis without septic shock; R04.2 Hemoptysis; Z90.49 Acquired absence of other specified parts of digestive tract; Z87.891 Personal history of nicotine dependence; I10 Essential (primary) hypertension; J96.01 Acute respiratory failure with hypoxia; Z79.890 Hormone replacement therapy; J90 Pleural effusion, not elsewhere classified; Z79.82 Long term (current) use of aspirin; J98.11 Atelectasis; Z86.73 Personal history of transient ischemic attack (TIA), and cerebral infarction without residual deficits; R00.0 Tachycardia, unspecified; J86.9 Pyothorax without fistula; Z83.3 Family history of diabetes mellitus; F12.90 Cannabis use, unspecified, uncomplicated
CPT/HCPCS: 32555; 32557; 36415; 71010; 71020; 71045; 71046; 71275; 76937; 80048; 80053; 80069; 80202; 81001; 82042; 82150; 82550; 82565; 82945; 83520; 83605; 83615; 83735; 83880; 83986; 84155; 84157; 84315; 84484; 85025; 85610; 85730; 86850; 86900; 86901; 87015; 87040; 87070; 87102; 87116; 87176; 87205; 87206; 87641; 88112; 88305; 89051; 90765; 90775; 93005; 94150; 94618; 94620; 94640; 94665; 96365; 96375; 97110; 97116; 97162; 97530; 99145; 99152; 99153; 99285; C1729; C1769; J0131; J0456; J0690; J0692; J1100; J1200; J1650; J1885; J2060; J2250; J2270; J2405; J2704; J3010; J3370; J7030; J7040; J7050; Q9967